=== PATIENT | male | born 1945 | race Caucasian/White ===

== ENCOUNTER → 2017-04-15 | Outpatient (CLI) | payer OTHER ==
[~2017-04-15] MED LIST: IOPAMIDOL (ISOVUE-300) 100 ML BTL ONE
== END ==
LOC: FIMAGING 08:44
PROVIDERS: ATTEND Specialist
DX: N32.9 Bladder disorder, unspecified (principal); R59.0 Localized enlarged lymph nodes; K80.20 Calculus of gallbladder without cholecystitis without obstruction
CPT/HCPCS: 74178; Q9967

== ENCOUNTER 2017-05-07 17:14 | Inpatient (IN) | payer OTHER ==
--- NOTE | 2017-05-07 17:19 | EDPHY ---
H & P Time Seen by Provider: 05/07/17 17:18 HPI/ROS: CHIEF COMPLAINT: Upper chest pain, questionable indigestion HISTORY OF PRESENT ILLNESS: The patient presents to the emergency department at the recommendation of his distribution operation supervisor. At around 1:30 a.m. this afternoon the patient developed some tightness across his upper chest. He was uncertain whether he was having indigestion. The patient reportedly used a home blood pressure monitor and reported that he had a tachycardia with a heart rate of 144 and elevated blood pressure. He checked it several times prior to contacting his distribution operation supervisor who recommended that he come to the ER for further evaluation. The patient's upper chest discomfort his current resolved. He denies any pleuritic chest pain, abdominal pain, nausea or vomiting. The patient does have a history of coronary artery disease and remote history of myocardial infarction. He reports his last stress test was approximately 3-4 years ago by his recollection. The patient's primary distribution operation supervisor is Dr. Alvarez Gamino. The patient's primary care provider is Dr. Js Rucker REVIEW OF SYSTEMS: A comprehensive 10 point review of systems is otherwise negative aside from elements mentioned in the history of present illness. Source: Patient Exam Limitations: No limitations - Personal History Tetanus Vaccine Date: 2010 - Medical/Surgical History Hx Asthma: No Hx Chronic Respiratory Disease: No Hx Diabetes: Yes Hx Cardiac Disease: Yes Hx Renal Disease: No Hx Cirrhosis: No Hx Alcoholism: No Hx HIV/AIDS: No Hx Splenectomy or Spleen Trauma: No Other PMH: josr knee replacement, diabetes,HTN, hypothyroid, gout, hyperlipidemia , [place] (2000) - Social History Smoking Status: Former smoker - Physical Exam Exam: General Appearance: Alert, no distress Eyes: Pupils equal and round no pallor or injection ENT, Mouth: Mucous membranes moist Respiratory: There are no retractions, lungs are clear to auscultation Cardiovascular: Regular rate and rhythm Gastrointestinal: Abdomen is soft and nontender, no masses, bowel sounds normal Neurological: A&O, normal motor function, normal sensory exam, normal cranial nerves Skin: Warm and dry, no rashes Musculoskeletal: Neck is supple nontender Extremities: symmetrical, full range of motion Constitutional: Initial Vital Signs Temperature (C) 36.5 C 05/07/17 17:16 Heart Rate 95 05/07/17 17:16 Respiratory Rate 16 05/07/17 17:16 Blood Pressure 156/87 H 05/07/17 17:16 O2 Sat (%) 97 05/07/17 17:16 O2 Delivery Mode Room Air Allergies/Adverse Reactions: No Known Allergies Allergy (Verified 04/26/17 14:26) Home Medications: Medication Instructions Recorded Aspirin EC [Aspirin EC 81 mg (OTC)] 03/30/13 Hydrochlorothiazide 03/30/13 [Hydrochlorothiazide 25 MG (RX)] Lisinopril [Zestril 40 mg (*)] 03/30/13 amLODIPine BESYLATE [Norvasc 5 mg 03/30/13 (RX)] Atorvastatin Calcium [Lipitor 40 09/25/13 mg (RX)] Cholecalciferol Vit D3 [Vitamin D3 09/25/13 (OTC)] Levothyroxine [Synthroid 50 mcg 09/25/13 (RX)] Metoprolol Succinate Xr [Toprol Xl 09/25/13 100 mg (RX)] metFORMIN HCL [Glucophage] 09/25/13 Mitigare 04/26/17 ONGLYZA 04/26/17 ULORIC 04/26/17 Medical Decision Making - Diagnostics EKG Interpretation: EKG: Complete interpretation has been separately recorded in the [email or web address] archive. Summary impression: Sinus rhythm, slight left axis deviation, no ST segment elevation or depression ED Course/Re-evaluation: The patient's to the ED after an episode of resolved upper chest pain. The patient's EKG demonstrates no evidence of ST segment elevation or depression. The patient's initial troponin was elevated at 0.083. The patient did have a slightly elevated lipase. He has no abdominal tenderness currently. I did speak with the patient's primary care provider and distribution operation supervisor who recommends admission to the hospital for further workup and evaluation. The patient will be started on Lovenox and given 1 inch of nitropaste q.6 hours per the recommendation of Dr. Lyman. Consultation is made with Dr. foreman from the hospitalist service who will admit the patient. Differential Diagnosis: Differential diagnosis considered includes myocardial infarction, acute coronary syndrome, costochondritis, esophageal spasm, pancreatitis, cholecystitis - Data Points Laboratory Results: Laboratory Results 05/07/17 17:30 05/07/17 17:30 05/07/17 05/07/17 05/07/17 17:30 17:30 17:30 WBC 7.69 10^3/uL 10^3/uL (3.80-9.50) RBC 5.67 10^6/uL 10^6/uL (4.40-6.38) Hgb 18.1 g/dL H g/dL (13.7-17.5) Hct 50.9 % % (40.0-51.0) MCV 89.8 fL fL (81.5-99.8) MCH 31.9 pg pg (27.9-34.1) MCHC 35.6 g/dL g/dL (32.4-36.7) RDW 13.1 % % (11.5-15.2) Plt Count 132 10^3/uL L 10^3/uL (150-400) MPV 12.3 fL H fL (8.7-11.7) Neut % (Auto) 62.7 % % (39.3-74.2) Lymph % (Auto) 24.6 % % (15.0-45.0) [place] % (Auto) 8.6 % % (4.5-13.0) Eos % (Auto) 2.5 % % (0.6-7.6) Baso % (Auto) 1.3 % % (0.3-1.7) Nucleat RBC Rel Count 0.0 % % (0.0-0.2) Absolute Neuts (auto) 4.83 10^3/uL 10^3/uL (1.70-6.50) Absolute Lymphs (auto) 1.89 10^3/uL 10^3/uL (1.00-3.00) Absolute Monos (auto) 0.66 10^3/uL 10^3/uL (0.30-0.80) Absolute Eos (auto) 0.19 10^3/uL 10^3/uL (0.03-0.40) Absolute Basos (auto) 0.10 10^3/uL 10^3/uL (0.02-0.10) Absolute Nucleated RBC 0.00 10^3/uL 10^3/uL (0-0.01) Immature Gran % 0.3 % % (0.0-1.1) Immature Gran # 0.02 10^3/uL 10^3/uL (0.00-0.10) PT 14.5 SEC SEC (12.0-15.0) INR 1.14 (0.83-1.16) APTT 25.3 SEC SEC (23.0-38.0) Sodium 142 mEq/L mEq/L (134-144) Potassium 3.3 mEq/L L mEq/L (3.5-5.2) Chloride 99 mEq/L mEq/L (97-110) Carbon Dioxide 26 mEq/l mEq/l (22-31) Anion Gap 17 mEq/L H mEq/L (8-16) BUN 23 mg/dL mg/dL (7-23) Creatinine 1.2 mg/dL mg/dL (0.7-1.3) Estimated GFR 59 Glucose 210 mg/dL H mg/dL (70-100) Calcium 10.1 mg/dL mg/dL (8.5-10.4) Total Bilirubin 1.2 mg/dL mg/dL (0.1-1.4) Conjugated Bilirubin 0.2 mg/dL mg/dL (0.0-0.5) Unconjugated Bilirubin 1.0 mg/dL mg/dL (0.0-1.1) AST 54 IU/L IU/L (17-59) ALT 79 IU/L H IU/L (21-72) Alkaline Phosphatase 93 IU/L IU/L (38-126) Troponin I 0.083 ng/mL H ng/mL (0.000-0.034) Total Protein 7.8 g/dL g/dL (6.3-8.2) Albumin 5.0 g/dL g/dL (3.5-5.0) Lipase 465 IU/L H IU/L (23-300) Departure - Departure Disposition: [facility] Inpatient Acute Clinical Impression: Chest pain Condition: Good Referrals: Waylon Rucker MD [Primary Care Provider] - As per Instructions
--- NOTE | 2017-05-07 17:19 | EDPHY ---
H & P Time Seen by Provider: 05/07/17 17:18 HPI/ROS: CHIEF COMPLAINT: Upper chest pain, questionable indigestion HISTORY OF PRESENT ILLNESS: The patient presents to the emergency department at the recommendation of his fountain attendant. At around 1:30 a.m. this afternoon the patient developed some tightness across his upper chest. He was uncertain whether he was having indigestion. The patient reportedly used a home blood pressure monitor and reported that he had a tachycardia with a heart rate of 144 and elevated blood pressure. He checked it several times prior to contacting his fountain attendant who recommended that he come to the ER for further evaluation. The patient's upper chest discomfort his current resolved. He denies any pleuritic chest pain, abdominal pain, nausea or vomiting. The patient does have a history of coronary artery disease and remote history of myocardial infarction. He reports his last stress test was approximately 3-4 years ago by his recollection. The patient's primary fountain attendant is Dr. Alvarez Gamino. The patient's primary care provider is Dr. Js Rucker REVIEW OF SYSTEMS: A comprehensive 10 point review of systems is otherwise negative aside from elements mentioned in the history of present illness. Source: Patient Exam Limitations: No limitations - Personal History Tetanus Vaccine Date: 2010 - Medical/Surgical History Hx Asthma: No Hx Chronic Respiratory Disease: No Hx Diabetes: Yes Hx Cardiac Disease: Yes Hx Renal Disease: No Hx Cirrhosis: No Hx Alcoholism: No Hx HIV/AIDS: No Hx Splenectomy or Spleen Trauma: No Other PMH: josr knee replacement, diabetes,HTN, hypothyroid, gout, hyperlipidemia , [place] (2000) - Social History Smoking Status: Former smoker - Physical Exam Exam: General Appearance: Alert, no distress Eyes: Pupils equal and round no pallor or injection ENT, Mouth: Mucous membranes moist Respiratory: There are no retractions, lungs are clear to auscultation Cardiovascular: Regular rate and rhythm Gastrointestinal: Abdomen is soft and nontender, no masses, bowel sounds normal Neurological: A&O, normal motor function, normal sensory exam, normal cranial nerves Skin: Warm and dry, no rashes Musculoskeletal: Neck is supple nontender Extremities: symmetrical, full range of motion Constitutional: Initial Vital Signs Temperature (C) 36.5 C 05/07/17 17:16 Heart Rate 95 05/07/17 17:16 Respiratory Rate 16 05/07/17 17:16 Blood Pressure 156/87 H 05/07/17 17:16 O2 Sat (%) 97 05/07/17 17:16 O2 Delivery Mode Room Air Allergies/Adverse Reactions: No Known Allergies Allergy (Verified 04/26/17 14:26) Home Medications: Medication Instructions Recorded Aspirin EC [Aspirin EC 81 mg (OTC)] 03/30/13 Hydrochlorothiazide 03/30/13 [Hydrochlorothiazide 25 MG (RX)] Lisinopril [Zestril 40 mg (*)] 03/30/13 amLODIPine BESYLATE [Norvasc 5 mg 03/30/13 (RX)] Atorvastatin Calcium [Lipitor 40 09/25/13 mg (RX)] Cholecalciferol Vit D3 [Vitamin D3 09/25/13 (OTC)] Levothyroxine [Synthroid 50 mcg 09/25/13 (RX)] Metoprolol Succinate Xr [Toprol Xl 09/25/13 100 mg (RX)] metFORMIN HCL [Glucophage] 09/25/13 Mitigare 04/26/17 ONGLYZA 04/26/17 ULORIC 04/26/17 Medical Decision Making - Diagnostics EKG Interpretation: EKG: Complete interpretation has been separately recorded in the [email or web address] archive. Summary impression: Sinus rhythm, slight left axis deviation, no ST segment elevation or depression ED Course/Re-evaluation: The patient's to the ED after an episode of resolved upper chest pain. The patient's EKG demonstrates no evidence of ST segment elevation or depression. The patient's initial troponin was elevated at 0.083. The patient did have a slightly elevated lipase. He has no abdominal tenderness currently. I did speak with the patient's primary care provider and fountain attendant who recommends admission to the hospital for further workup and evaluation. The patient will be started on Lovenox and given 1 inch of nitropaste q.6 hours per the recommendation of Dr. Lyman. Consultation is made with Dr. foreman from the hospitalist service who will admit the patient. Differential Diagnosis: Differential diagnosis considered includes myocardial infarction, acute coronary syndrome, costochondritis, esophageal spasm, pancreatitis, cholecystitis - Data Points Laboratory Results: Laboratory Results 05/07/17 17:30 05/07/17 17:30 05/07/17 05/07/17 05/07/17 17:30 17:30 17:30 WBC 7.69 10^3/uL 10^3/uL (3.80-9.50) RBC 5.67 10^6/uL 10^6/uL (4.40-6.38) Hgb 18.1 g/dL H g/dL (13.7-17.5) Hct 50.9 % % (40.0-51.0) MCV 89.8 fL fL (81.5-99.8) MCH 31.9 pg pg (27.9-34.1) MCHC 35.6 g/dL g/dL (32.4-36.7) RDW 13.1 % % (11.5-15.2) Plt Count 132 10^3/uL L 10^3/uL (150-400) MPV 12.3 fL H fL (8.7-11.7) Neut % (Auto) 62.7 % % (39.3-74.2) Lymph % (Auto) 24.6 % % (15.0-45.0) [place] % (Auto) 8.6 % % (4.5-13.0) Eos % (Auto) 2.5 % % (0.6-7.6) Baso % (Auto) 1.3 % % (0.3-1.7) Nucleat RBC Rel Count 0.0 % % (0.0-0.2) Absolute Neuts (auto) 4.83 10^3/uL 10^3/uL (1.70-6.50) Absolute Lymphs (auto) 1.89 10^3/uL 10^3/uL (1.00-3.00) Absolute Monos (auto) 0.66 10^3/uL 10^3/uL (0.30-0.80) Absolute Eos (auto) 0.19 10^3/uL 10^3/uL (0.03-0.40) Absolute Basos (auto) 0.10 10^3/uL 10^3/uL (0.02-0.10) Absolute Nucleated RBC 0.00 10^3/uL 10^3/uL (0-0.01) Immature Gran % 0.3 % % (0.0-1.1) Immature Gran # 0.02 10^3/uL 10^3/uL (0.00-0.10) PT 14.5 SEC SEC (12.0-15.0) INR 1.14 (0.83-1.16) APTT 25.3 SEC SEC (23.0-38.0) Sodium 142 mEq/L mEq/L (134-144) Potassium 3.3 mEq/L L mEq/L (3.5-5.2) Chloride 99 mEq/L mEq/L (97-110) Carbon Dioxide 26 mEq/l mEq/l (22-31) Anion Gap 17 mEq/L H mEq/L (8-16) BUN 23 mg/dL mg/dL (7-23) Creatinine 1.2 mg/dL mg/dL (0.7-1.3) Estimated GFR 59 Glucose 210 mg/dL H mg/dL (70-100) Calcium 10.1 mg/dL mg/dL (8.5-10.4) Total Bilirubin 1.2 mg/dL mg/dL (0.1-1.4) Conjugated Bilirubin 0.2 mg/dL mg/dL (0.0-0.5) Unconjugated Bilirubin 1.0 mg/dL mg/dL (0.0-1.1) AST 54 IU/L IU/L (17-59) ALT 79 IU/L H IU/L (21-72) Alkaline Phosphatase 93 IU/L IU/L (38-126) Troponin I 0.083 ng/mL H ng/mL (0.000-0.034) Total Protein 7.8 g/dL g/dL (6.3-8.2) Albumin 5.0 g/dL g/dL (3.5-5.0) Lipase 465 IU/L H IU/L (23-300) Departure - Departure Disposition: [facility] Inpatient Acute Clinical Impression: Chest pain Condition: Good Referrals: Waylon Rucker MD [Primary Care Provider] - As per Instructions
--- NOTE | 2017-05-07 17:19 | EDPHY ---
H & P Time Seen by Provider: 05/07/17 17:18 HPI/ROS: CHIEF COMPLAINT: Upper chest pain, questionable indigestion HISTORY OF PRESENT ILLNESS: The patient presents to the emergency department at the recommendation of his bessemer bottom maker. At around 1:30 a.m. this afternoon the patient developed some tightness across his upper chest. He was uncertain whether he was having indigestion. The patient reportedly used a home blood pressure monitor and reported that he had a tachycardia with a heart rate of 144 and elevated blood pressure. He checked it several times prior to contacting his bessemer bottom maker who recommended that he come to the ER for further evaluation. The patient's upper chest discomfort his current resolved. He denies any pleuritic chest pain, abdominal pain, nausea or vomiting. The patient does have a history of coronary artery disease and remote history of myocardial infarction. He reports his last stress test was approximately 3-4 years ago by his recollection. The patient's primary bessemer bottom maker is Dr. Alvarez Gamino. The patient's primary care provider is Dr. Js Rucker REVIEW OF SYSTEMS: A comprehensive 10 point review of systems is otherwise negative aside from elements mentioned in the history of present illness. Source: Patient Exam Limitations: No limitations - Personal History Tetanus Vaccine Date: 2010 - Medical/Surgical History Hx Asthma: No Hx Chronic Respiratory Disease: No Hx Diabetes: Yes Hx Cardiac Disease: Yes Hx Renal Disease: No Hx Cirrhosis: No Hx Alcoholism: No Hx HIV/AIDS: No Hx Splenectomy or Spleen Trauma: No Other PMH: josr knee replacement, diabetes,HTN, hypothyroid, gout, hyperlipidemia , [place] (2000) - Social History Smoking Status: Former smoker - Physical Exam Exam: General Appearance: Alert, no distress Eyes: Pupils equal and round no pallor or injection ENT, Mouth: Mucous membranes moist Respiratory: There are no retractions, lungs are clear to auscultation Cardiovascular: Regular rate and rhythm Gastrointestinal: Abdomen is soft and nontender, no masses, bowel sounds normal Neurological: A&O, normal motor function, normal sensory exam, normal cranial nerves Skin: Warm and dry, no rashes Musculoskeletal: Neck is supple nontender Extremities: symmetrical, full range of motion Constitutional: Initial Vital Signs Temperature (C) 36.5 C 05/07/17 17:16 Heart Rate 95 05/07/17 17:16 Respiratory Rate 16 05/07/17 17:16 Blood Pressure 156/87 H 05/07/17 17:16 O2 Sat (%) 97 05/07/17 17:16 O2 Delivery Mode Room Air Allergies/Adverse Reactions: No Known Allergies Allergy (Verified 04/26/17 14:26) Home Medications: Medication Instructions Recorded Aspirin EC [Aspirin EC 81 mg (OTC)] 03/30/13 Hydrochlorothiazide 03/30/13 [Hydrochlorothiazide 25 MG (RX)] Lisinopril [Zestril 40 mg (*)] 03/30/13 amLODIPine BESYLATE [Norvasc 5 mg 03/30/13 (RX)] Atorvastatin Calcium [Lipitor 40 09/25/13 mg (RX)] Cholecalciferol Vit D3 [Vitamin D3 09/25/13 (OTC)] Levothyroxine [Synthroid 50 mcg 09/25/13 (RX)] Metoprolol Succinate Xr [Toprol Xl 09/25/13 100 mg (RX)] metFORMIN HCL [Glucophage] 09/25/13 Mitigare 04/26/17 ONGLYZA 04/26/17 ULORIC 04/26/17 Medical Decision Making - Diagnostics EKG Interpretation: EKG: Complete interpretation has been separately recorded in the [email or web address] archive. Summary impression: Sinus rhythm, slight left axis deviation, no ST segment elevation or depression ED Course/Re-evaluation: The patient's to the ED after an episode of resolved upper chest pain. The patient's EKG demonstrates no evidence of ST segment elevation or depression. The patient's initial troponin was elevated at 0.083. The patient did have a slightly elevated lipase. He has no abdominal tenderness currently. I did speak with the patient's primary care provider and bessemer bottom maker who recommends admission to the hospital for further workup and evaluation. The patient will be started on Lovenox and given 1 inch of nitropaste q.6 hours per the recommendation of Dr. Lyman. Consultation is made with Dr. foreman from the hospitalist service who will admit the patient. Differential Diagnosis: Differential diagnosis considered includes myocardial infarction, acute coronary syndrome, costochondritis, esophageal spasm, pancreatitis, cholecystitis - Data Points Laboratory Results: Laboratory Results 05/07/17 17:30 05/07/17 17:30 05/07/17 05/07/17 05/07/17 17:30 17:30 17:30 WBC 7.69 10^3/uL 10^3/uL (3.80-9.50) RBC 5.67 10^6/uL 10^6/uL (4.40-6.38) Hgb 18.1 g/dL H g/dL (13.7-17.5) Hct 50.9 % % (40.0-51.0) MCV 89.8 fL fL (81.5-99.8) MCH 31.9 pg pg (27.9-34.1) MCHC 35.6 g/dL g/dL (32.4-36.7) RDW 13.1 % % (11.5-15.2) Plt Count 132 10^3/uL L 10^3/uL (150-400) MPV 12.3 fL H fL (8.7-11.7) Neut % (Auto) 62.7 % % (39.3-74.2) Lymph % (Auto) 24.6 % % (15.0-45.0) [place] % (Auto) 8.6 % % (4.5-13.0) Eos % (Auto) 2.5 % % (0.6-7.6) Baso % (Auto) 1.3 % % (0.3-1.7) Nucleat RBC Rel Count 0.0 % % (0.0-0.2) Absolute Neuts (auto) 4.83 10^3/uL 10^3/uL (1.70-6.50) Absolute Lymphs (auto) 1.89 10^3/uL 10^3/uL (1.00-3.00) Absolute Monos (auto) 0.66 10^3/uL 10^3/uL (0.30-0.80) Absolute Eos (auto) 0.19 10^3/uL 10^3/uL (0.03-0.40) Absolute Basos (auto) 0.10 10^3/uL 10^3/uL (0.02-0.10) Absolute Nucleated RBC 0.00 10^3/uL 10^3/uL (0-0.01) Immature Gran % 0.3 % % (0.0-1.1) Immature Gran # 0.02 10^3/uL 10^3/uL (0.00-0.10) PT 14.5 SEC SEC (12.0-15.0) INR 1.14 (0.83-1.16) APTT 25.3 SEC SEC (23.0-38.0) Sodium 142 mEq/L mEq/L (134-144) Potassium 3.3 mEq/L L mEq/L (3.5-5.2) Chloride 99 mEq/L mEq/L (97-110) Carbon Dioxide 26 mEq/l mEq/l (22-31) Anion Gap 17 mEq/L H mEq/L (8-16) BUN 23 mg/dL mg/dL (7-23) Creatinine 1.2 mg/dL mg/dL (0.7-1.3) Estimated GFR 59 Glucose 210 mg/dL H mg/dL (70-100) Calcium 10.1 mg/dL mg/dL (8.5-10.4) Total Bilirubin 1.2 mg/dL mg/dL (0.1-1.4) Conjugated Bilirubin 0.2 mg/dL mg/dL (0.0-0.5) Unconjugated Bilirubin 1.0 mg/dL mg/dL (0.0-1.1) AST 54 IU/L IU/L (17-59) ALT 79 IU/L H IU/L (21-72) Alkaline Phosphatase 93 IU/L IU/L (38-126) Troponin I 0.083 ng/mL H ng/mL (0.000-0.034) Total Protein 7.8 g/dL g/dL (6.3-8.2) Albumin 5.0 g/dL g/dL (3.5-5.0) Lipase 465 IU/L H IU/L (23-300) Departure - Departure Disposition: [facility] Inpatient Acute Clinical Impression: Chest pain Condition: Good Referrals: Waylon Rucker MD [Primary Care Provider] - As per Instructions
--- NOTE | 2017-05-07 17:26 | CPEKG ---
Heart Rate: 93 RR Interval: 645 P-R Interval: 184 QRSD Interval: 98 QT Interval: 368 QTC Interval: 458 P [place]: 60 QRS [place]: -29 T Wave [place]: 34 EKG Severity - BORDERLINE ECG - EKG Impression: SINUS RHYTHM Electronically Signed By: Sim Willoughby 07-May-2017 17:36:38
[2017-05-07 17:45] LABS: PLATELET COUNT 132 10^3/uL (150-400)
[2017-05-07 17:56] LABS: INR 1.14 (0.83-1.16); PROTIME(PATIENT) 14.5 SEC (12.0-15.0)
[2017-05-07] MEDS ORDERED: ENOXAPARIN 80 MG/0.8 ML SYR SC ONE (18:47)
[2017-05-07] MEDS ORDERED: ONDANSETRON DISINTEGRATING 4 MG TAB PO PRN (19:28)
[2017-05-07] MEDS ORDERED: ONDANSETRON 4 MG/2 ML VIAL IVP PRN (19:28)
[2017-05-07] MEDS ORDERED: ACETAMINOPHEN 325 MG TAB PO PRN (19:28)
[2017-05-07] MEDS ORDERED: ENOXAPARIN 40 MG/0.4 ML SYR SC SCH (21:00)
--- NOTE | 2017-05-07 21:00 | PDGENHP ---
History and Physical - Chief Complaint Acute chest pain - History of Present Illness PCP: Dr. Rucker Data Warehouse Architect: Dr. Gamino HPI: 72 yo M p/w acute chest characterized as a tightness located in his upper chest, with onset of symptoms around 1:30 p.m., occurring at rest, with duration approx 2 hours. It began after he ate a couple [employer] hamburgers quickly. It was alleviated w/o intervention. He took all of his home medications on the morning of presentation. He checked his vital signs during his symptoms, and his HR was 144, SBP 170s. He does not have a regular exercise routine, but he does ambulate quite a bit on a daily basis, and this does not provoke chest pain. He has noted no recent reduction in exercise tolerance or ambulatory ability. He recently saw Dr. Gamino in the office for a pre-op eval , with bladder surgery scheduled in 1 week w/ Dr. Aden. History Information - Allergies/Home Medication List Allergies/Adverse Reactions: No Known Allergies Allergy (Verified 04/26/17 14:26) Home Medications: Aspirin EC [Aspirin EC 81 mg (OTC)] 03/30/13 [Last Taken 09/30/13] Hydrochlorothiazide [Hydrochlorothiazide 25 MG (RX)] 03/30/13 [Last Taken 10/05] Lisinopril [Zestril 40 mg (*)] 03/30/13 [Last Taken 09/25/13 05:00] amLODIPine BESYLATE [Norvasc 5 mg (RX)] 03/30/13 [Last Taken 10/05/13] Atorvastatin Calcium [Lipitor 40 mg (RX)] 09/25/13 [Last Taken 10/04/13] Cholecalciferol Vit D3 [Vitamin D3 (OTC)] 09/25/13 [Last Taken 10/04/13] Levothyroxine [Synthroid 50 mcg (RX)] 09/25/13 [Last Taken 10/05/13] Metoprolol Succinate Xr [Toprol Xl 100 mg (RX)] 09/25/13 [Last Taken 10/05/13 08:00] metFORMIN HCL [Glucophage] 09/25/13 [Last Taken 10/03/13] Mitigare 04/26/17 [Last Taken Unknown] ONGLYZA 04/26/17 [Last Taken Unknown] ULORIC 04/26/17 [Last Taken Unknown] I have personally reviewed and updated: family history, medical history, social history, surgical history - Past Medical History coronary artery disease (w/ previous cardiac stents 2000 and 2008, off of plavix for approx 2 years), diabetes type 2, hypertension Additional medical history: Hypothyroidism. Gout. 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 Review of Systems Review of Systems: ROS: 10pt was reviewed & negative except for what was stated in HPI & below Cardiac: Reports: chest pain Physical Exam Physical Exam: Temp Pulse Resp BP Pulse Ox 36.4 C 81 16 138/84 H 93 05/07/17 19:46 05/07/17 19:46 05/07/17 19:46 05/07/17 19:46 05/07/17 19:46 Constitutional: no apparent distress, appears nourished, not in pain Eyes: PERRL, anicteric sclera, EOMI Ears, Nose, Mouth, Throat: moist mucous membranes, hearing normal, ears appear normal, no oral mucosal ulcers Cardiovascular: regular rate and rhythym, no murmur, rub, or gallop, No edema Respiratory: no respiratory distress, no rales or rhonchi, clear to auscultation Gastrointestinal: normoactive bowel sounds, soft, non-tender abdomen, no palpable masses Skin: warm, other (no vesicular lesion on anterior chest), No rash Neurologic: AAOx3, No facial droop Psychiatric: interacting appropriately, not anxious, not encephalopathic, thought process linear Lab Data & Imaging Review 05/07/17 17:30 05/07/17 17:30 WBC 7.69 10^3/uL (3.80-9.50) 05/07/17 17:30 RBC 5.67 10^6/uL (4.40-6.38) 05/07/17 17:30 Hgb 18.1 g/dL (13.7-17.5) H 05/07/17 17:30 Hct 50.9 % (40.0-51.0) 05/07/17 17:30 MCV 89.8 fL (81.5-99.8) 05/07/17 17:30 MCH 31.9 pg (27.9-34.1) 05/07/17 17:30 MCHC 35.6 g/dL (32.4-36.7) 05/07/17 17:30 RDW 13.1 % (11.5-15.2) 05/07/17 17:30 Plt Count 132 10^3/uL (150-400) L 05/07/17 17:30 MPV 12.3 fL (8.7-11.7) H 05/07/17 17: Neut % (Auto) 62.7 % (39.3-74.2) 05/07/17 17: Lymph % (Auto) 24.6 % (15.0-45.0) 05/07/17 17: Cedar % (Auto) 8.6 % (4.5-13.0) 05/07/17 17:30 Eos % (Auto) 2.5 % (0.6-7.6) 05/07/17 17:30 Baso % (Auto) 1.3 % (0.3-1.7) 05/07/17 17: Nucleat RBC Rel Count 0.0 % (0.0-0.2) 05/07/17 17:30 Absolute Neuts (auto) 4.83 10^3/uL (1.70-6.50) 05/07/17 17:30 Absolute Lymphs (auto) 1.89 10^3/uL (1.00-3.00) 05/07/17 17:30 Absolute Monos (auto) 0.66 10^3/uL (0.30-0.80) 05/07/17 17:30 Absolute Eos (auto) 0.19 10^3/uL (0.03-0.40) 05/07/17 17:30 Absolute Basos (auto) 0.10 10^3/uL (0.02-0.10) 05/07/17 17:30 Absolute Nucleated RBC 0.00 10^3/uL (0-0.01) 05/07/17 17:30 Immature Gran % 0.3 % (0.0-1.1) 05/07/17 17:30 Immature Gran # 0.02 10^3/uL (0.00-0.10) 05/07/17 17:30 PT 14.5 SEC (12.0-15.0) 05/07/17 17:30 INR 1.14 (0.83-1.16) 05/07/17 17:30 APTT 25.3 SEC (23.0-38.0) 05/07/17 17:30 D-Dimer 0.65 ug/mLFEU (0.00-0.50) H 05/07/17 17:30 Sodium 142 mEq/L (134-144) 05/07/17 17:30 Potassium 3.3 mEq/L (3.5-5.2) L 05/07/17 17:30 Chloride 99 mEq/L (97-110) 05/07/17 17:30 Carbon Dioxide 26 mEq/l (22-31) 05/07/17 17:30 Anion Gap 17 mEq/L (8-16) H 05/07/17 17:30 BUN 23 mg/dL (7-23) 05/07/17 17:30 Creatinine 1.2 mg/dL (0.7-1.3) 05/07/17 17:30 Estimated GFR 59 05/07/17 17:30 Glucose 210 mg/dL (70-100) H 05/07/17 17:30 Calcium 10.1 mg/dL (8.5-10.4) 05/07/17 17:30 Total Bilirubin 1.2 mg/dL (0.1-1.4) 05/07/17 17:30 Conjugated Bilirubin 0.2 mg/dL (0.0-0.5) 05/07/17 17:30 Unconjugated Bilirubin 1.0 mg/dL (0.0-1.1) 05/07/17 17:30 AST 54 IU/L (17-59) 05/07/17 17:30 ALT 79 IU/L (21-72) H 05/07/17 17:30 Alkaline Phosphatase 93 IU/L (38-126) 05/07/17 17:30 Troponin I 0.083 ng/mL (0.000-0.034) H 05/07/17 17:30 Total Protein 7.8 g/dL (6.3-8.2) 05/07/17 17:30 Albumin 5.0 g/dL (3.5-5.0) 05/07/17 17:30 Lipase 465 IU/L (23-300) H 05/07/17 17:30 Visualized and Interpreted EKG results: Yes EKG Interpretation: Positive for: other (NSR, Q in III/aVF, < 1 mm BRADY V2) Assessment & Plan Assessment: 72 yo M p/w acute chest pain Plan: # Chest pain. Acute, new problem to this provider, further w/u indicated. Possible etiologies include ACS (given CAD hx) vs. tachyarrhythmia (given report of HR 144) vs. GERD (given PO intake immediately prior to onset) - initial trop 0.08, cycle enzymes o/n - monitor on tele - repeat EKG in AM to eval for dynamic changes - d/w Dr. Willoughby, he reports that Dr. Lyman will consult from cardiology, recommends treating for unstable angina w/ therapeutic lovenox 80 bid, nitro if symptoms recur, full dose ASA - patient reports that he will not be cath'd by anyone other than either Dr. Gamino or Dr. Peguero, and will keep patient NPO in case Dr. Peguero is available to cath in AM - if not, will defer the conversation of how/when to risk stratify to cardiology - ddimer neg for age-adjustment, no further PE eval indicated - no infxn symptoms, but if develops pulm symptoms, recommend reassessing and getting CXR - if all of the above unremarkable, would recommend PRN H2 david, possibly scheduled PPI, patient already takes tums PRN # CAD. Chronic, cont home Rx once reconciled, already took bblocker this AM # DM2. Chronic, cont home Rx # Bladder cancer. Reviewed outside records including CT from 04/15/17 demonstrating bladder mass - has outpt surgery w/ Dr. Aden in 1 week, recommend cardiac risk stratification before that time Diet. ADA PPx. High risk, on lovenox 80 bid Code. Full Dispo. ADD 05/08, pending further w/u as outlined above.
[2017-05-07] MEDS ORDERED: Saxagliptin Hcl [Onglyza] 5 MG PO SCH (21:45)
[2017-05-07] MEDS: LISINOPRIL 40 MG TAB PO SCH (22:25)
[2017-05-07] MEDS: COLCHICINE 0.6 MG CAP/TAB PO SCH (22:27)
[2017-05-07] MEDS: CHOLECALCIFEROL VIT D3 1,000 UNITS TAB PO SCH (22:27)
[2017-05-07] MEDS: ATORVASTATIN CALCIUM 20 MG TAB PO SCH (22:28)
[2017-05-07] MEDS ORDERED: D5W 1/2 NS W/ 20 KCl/L 1,000 ML IV SCH (23:55)
[2017-05-08 05:18] LABS: PLATELET COUNT 98 10^3/uL (150-400)
[2017-05-08] MEDS: LEVOTHYROXINE 50 MCG TAB PO SCH (06:03)
[2017-05-08] MEDS ORDERED: metFORMIN HCL 500 MG TAB PO SCH (08:00)
[2017-05-08] MEDS ORDERED: Febuxostat [Uloric] 40 MG PO SCH (09:00)
[2017-05-08] MEDS ORDERED: ENOXAPARIN 80 MG/0.8 ML SYR SC SCH (09:00)
--- NOTE | 2017-05-08 09:00 | CPEKG ---
Heart Rate: 69 RR Interval: 870 P-R Interval: 180 QRSD Interval: 98 QT Interval: 416 QTC Interval: 446 P [place]: 69 QRS [place]: -8 T Wave [place]: -33 EKG Severity - ABNORMAL ECG - EKG Impression: SINUS RHYTHM EKG Impression: PROBABLE LEFT ATRIAL ABNORMALITY EKG Impression: BORDERLINE T ABNORMALITIES, INFERIOR LEADS EKG Impression: NONSPECIFIC ST_T WAVE ABNORMAILITES Electronically Signed By: Wally Cadena 08-May-2017 11:07:21
[2017-05-08] MEDS ORDERED: fentaNYL 100 MCG/2 ML INJ ONE (09:15)
[2017-05-08] MEDS ORDERED: LIDOCAINE 1% 300 MG/30 ML SDV ONE (09:15)
[2017-05-08] MEDS ORDERED: MIDAZOLAM 2 MG/2 ML VIAL ONE (09:16)
[2017-05-08] MEDS ORDERED: IOPAMIDOL (ISOVUE-370) 150 ML BTL IV ONE (09:16)
--- NOTE | 2017-05-08 09:39 | PDHPUP ---
History & Physical Update H&P update statement: This history and physical update is based on an assessment of the patient which was completed after admission or registration (within 24 hours), but prior to the surgery/procedure. H&P update: H&P reviewed & patient examined, no change in patient's condition since H&P completed
--- NOTE | 2017-05-08 09:39 | PDPROPOC ---
Sedation Plan of Care Sedation Plan of Care: vital signs stable, mental status noted, patient educated of risks, benefits, alternatives, patient can tolerate sedation ASA Classification: ASA 2 Planned drugs: fentanyl, midazolam Mallampati Score: Class 2 Mallampati Reference Image: Patient passed 3-3-2 rule?: Yes
[2017-05-08] MEDS ORDERED: BIVALIRUDIN 250 MG/5 ML VIAL IV ONE ×2 (10:21→10:30)
[2017-05-08] MEDS ORDERED: ADENOSINE 90 MG/30 ML VIAL IV ONE ×2 (10:30)
[2017-05-08] MEDS ORDERED: LABETALOL HCL 5 MG/ML 20 ML MDV ONE (11:15)
[2017-05-08] MEDS ORDERED: CLOPIDOGREL BISULFATE 75 MG TAB ONE (11:22)
[2017-05-08] MEDS ORDERED: CLOPIDOGREL BISULFATE 75 MG TAB PO ONE (11:44)
[2017-05-08] MEDS ORDERED: TEMAZEPAM 15 MG CAP PO PRN (11:44)
[2017-05-08] MEDS ORDERED: NITROGLYCERIN 0.4 MG BTL SL PRN (11:44)
[2017-05-08] MEDS ORDERED: ATROPINE SULFATE 1 MG/10 ML SYR IVP PRN (11:44)
--- NOTE | 2017-05-08 11:59 | CPIP ---
[f rep st] INVASIVE CARDIAC PROCEDURE DATE OF PROCEDURE: 05/08/2017 PROCEDURE: 1. Coronary angiography. 2. Left ventriculography. 3. Fractional flow reserve of right coronary artery. 4. Stenting of right coronary artery with Synergy drug-eluting stent. INDICATION: Acute coronary syndrome. ACCESS: Patient was prepped and draped in the sterile fashion. 1% lidocaine was used to anesthetize the right inguinal region. A 6-Bur[place]ian introducer sheath was placed selectively in the right common femoral artery via modified Seldinger technique. CORONARY ANGIOGRAPHY: A 6-[place] JL4 was advanced to the left main coronary artery. The 6-[place]ian JL 4 did not engage the left main coronary artery well and was exchanged for a 6-[place]ian JL4.5 catheter. This engaged the left main coronary artery well and images were obtained. The left main coronary ar tamera trifurcated into an LAD, ramus, and circumflex coronary arteries. The left main coronary artery appeared normal. The left anterior descending coronary artery had mild diffuse disease throughout. In the midvessel, previously placed stent could be seen. The previously placed stent is widely maldonado nt with no evidence of significant in-stent restenosis. In the mid to distal vessel, there is a sing le discrete 30% stenosis present. The left anterior descending coronary artery gave rise to a promin ent diagonal branch. The prominent diagonal branch had a proximal 50% stenosis present. The circumf buddy coronary artery is a moderate to large-sized vessel. The circumflex coronary artery is nondomina nt. Circumflex coronary artery had mild diffuse disease throughout. There was no stenosis greater t vasques 10%. The first OM artery was previously stented in the proximal segment. The previously placed stent was 100% occluded. The distal vessel is being filled by collaterals from the left anterior gm cending coronary artery. This stent occlusion was noted in the 2008 films. The 6-[place]ian JR4 was adv anced to the right coronary artery and images obtained. The right coronary artery was diffusely dise ased in the mid vessel with stenosis approaching 80% to 85% in severity. LEFT VENTRICULOGRAPHY: A 6-Burundian pigtail catheter was advanced in the left ventricle and images obt ained. Left ventricle is normal size and had normal systolic function, estimated ejection fraction o f 65% to 70%. FFR of the right coronary artery, a 6-[place]ian JR4 was advanced to the right coronary ar tamera and images obtained. Angiography confirmed the presence of high-grade disease involving the mid vessel. FFR wire was placed in the distal vessel and position verified by angiography. FFR was obt ained after IV adenosine infusion. The FFR was 0.61 indicating flow limitation. Percutaneous mena ry intervention of the right coronary artery, a Luge wire was placed in the distal vessel and positio n verified by angiography. The mid vessel was pre-dilated with a 2.5 x 20 Emerge balloon. Followup angiography demonstrated significant residual stenosis. A 2.5 x 28 synergy drug-eluting stent was th en placed in the mid vessel and deployed. Followup angiography demonstrated no significant residual stenosis and SATINDER-3 flow. The midportion of the stent was postdilated with a 3.0 x 12 Noncompliant B alloon. Followup angiography demonstrated SATINDER-3 flow. No residual stenosis. COMPLICATIONS: None. CONCLUSIONS: 1. Patent left anterior descending stent with no evidence of significant in-stent restenosis. 2. Occluded circumflex stent which was seen previously in 2007. 3. High-grade disease involving the mid right coronary artery, status post successful percutaneous c oronary intervention using a Synergy drug-eluting stent. /[id number]/MODL
--- NOTE | 2017-05-08 11:59 | CPIP ---
[f rep st] INVASIVE CARDIAC PROCEDURE DATE OF PROCEDURE: 05/08/2017 PROCEDURE: 1. Coronary angiography. 2. Left ventriculography. 3. Fractional flow reserve of right coronary artery. 4. Stenting of right coronary artery with Synergy drug-eluting stent. INDICATION: Acute coronary syndrome. ACCESS: Patient was prepped and draped in the sterile fashion. 1% lidocaine was used to anesthetize the right inguinal region. A 6-Nigerien introducer sheath was placed selectively in the right common femoral artery via modified Seldinger technique. CORONARY ANGIOGRAPHY: A 6-Nigerien JL4 was advanced to the left main coronary artery. The 6-Nigerien JL 4 did not engage the left main coronary artery well and was exchanged for a 6-Nigerien JL4.5 catheter. This engaged the left main coronary artery well and images were obtained. The left main coronary ar tamera trifurcated into an LAD, ramus, and circumflex coronary arteries. The left main coronary artery appeared normal. The left anterior descending coronary artery had mild diffuse disease throughout. In the midvessel, previously placed stent could be seen. The previously placed stent is widely maldonado nt with no evidence of significant in-stent restenosis. In the mid to distal vessel, there is a sing le discrete 30% stenosis present. The left anterior descending coronary artery gave rise to a promin ent diagonal branch. The prominent diagonal branch had a proximal 50% stenosis present. The circumf buddy coronary artery is a moderate to large-sized vessel. The circumflex coronary artery is nondomina nt. Circumflex coronary artery had mild diffuse disease throughout. There was no stenosis greater t vasques 10%. The first OM artery was previously stented in the proximal segment. The previously placed stent was 100% occluded. The distal vessel is being filled by collaterals from the left anterior gm cending coronary artery. This stent occlusion was noted in the 2008 films. The 6-Nigerien JR4 was adv anced to the right coronary artery and images obtained. The right coronary artery was diffusely dise ased in the mid vessel with stenosis approaching 80% to 85% in severity. LEFT VENTRICULOGRAPHY: A 6-Nigerien pigtail catheter was advanced in the left ventricle and images obt ained. Left ventricle is normal size and had normal systolic function, estimated ejection fraction o f 65% to 70%. FFR of the right coronary artery, a 6-Nigerien JR4 was advanced to the right coronary ar tamera and images obtained. Angiography confirmed the presence of high-grade disease involving the mid vessel. FFR wire was placed in the distal vessel and position verified by angiography. FFR was obt ained after IV adenosine infusion. The FFR was 0.61 indicating flow limitation. Percutaneous mena ry intervention of the right coronary artery, a Luge wire was placed in the distal vessel and positio n verified by angiography. The mid vessel was pre-dilated with a 2.5 x 20 Emerge balloon. Followup angiography demonstrated significant residual stenosis. A 2.5 x 28 synergy drug-eluting stent was th en placed in the mid vessel and deployed. Followup angiography demonstrated no significant residual stenosis and SATINDER-3 flow. The midportion of the stent was postdilated with a 3.0 x 12 Noncompliant B alloon. Followup angiography demonstrated SATINDER-3 flow. No residual stenosis. COMPLICATIONS: None. CONCLUSIONS: 1. Patent left anterior descending stent with no evidence of significant in-stent restenosis. 2. Occluded circumflex stent which was seen previously in 2007. 3. High-grade disease involving the mid right coronary artery, status post successful percutaneous c oronary intervention using a Synergy drug-eluting stent. /[id number]/MODL
--- NOTE | 2017-05-08 11:59 | CPIP ---
[f rep st] INVASIVE CARDIAC PROCEDURE DATE OF PROCEDURE: 05/08/2017 PROCEDURE: 1. Coronary angiography. 2. Left ventriculography. 3. Fractional flow reserve of right coronary artery. 4. Stenting of right coronary artery with Synergy drug-eluting stent. INDICATION: Acute coronary syndrome. ACCESS: Patient was prepped and draped in the sterile fashion. 1% lidocaine was used to anesthetize the right inguinal region. A 6-[place] introducer sheath was placed selectively in the right common femoral artery via modified Seldinger technique. CORONARY ANGIOGRAPHY: A 6-[place] JL4 was advanced to the left main coronary artery. The 6-[place] JL 4 did not engage the left main coronary artery well and was exchanged for a 6-[place] JL4.5 catheter. This engaged the left main coronary artery well and images were obtained. The left main coronary ar tamera trifurcated into an LAD, ramus, and circumflex coronary arteries. The left main coronary artery appeared normal. The left anterior descending coronary artery had mild diffuse disease throughout. In the midvessel, previously placed stent could be seen. The previously placed stent is widely maldonado nt with no evidence of significant in-stent restenosis. In the mid to distal vessel, there is a sing le discrete 30% stenosis present. The left anterior descending coronary artery gave rise to a promin ent diagonal branch. The prominent diagonal branch had a proximal 50% stenosis present. The circumf buddy coronary artery is a moderate to large-sized vessel. The circumflex coronary artery is nondomina nt. Circumflex coronary artery had mild diffuse disease throughout. There was no stenosis greater t vasques 10%. The first OM artery was previously stented in the proximal segment. The previously placed stent was 100% occluded. The distal vessel is being filled by collaterals from the left anterior gm cending coronary artery. This stent occlusion was noted in the 2008 films. The 6-[place] JR4 was adv anced to the right coronary artery and images obtained. The right coronary artery was diffusely dise ased in the mid vessel with stenosis approaching 80% to 85% in severity. LEFT VENTRICULOGRAPHY: A 6-[place] pigtail catheter was advanced in the left ventricle and images obt ained. Left ventricle is normal size and had normal systolic function, estimated ejection fraction o f 65% to 70%. FFR of the right coronary artery, a 6-[place] JR4 was advanced to the right coronary ar tamera and images obtained. Angiography confirmed the presence of high-grade disease involving the mid vessel. FFR wire was placed in the distal vessel and position verified by angiography. FFR was obt ained after IV adenosine infusion. The FFR was 0.61 indicating flow limitation. Percutaneous mena ry intervention of the right coronary artery, a Luge wire was placed in the distal vessel and positio n verified by angiography. The mid vessel was pre-dilated with a 2.5 x 20 Emerge balloon. Followup angiography demonstrated significant residual stenosis. A 2.5 x 28 synergy drug-eluting stent was th en placed in the mid vessel and deployed. Followup angiography demonstrated no significant residual stenosis and SATINDER-3 flow. The midportion of the stent was postdilated with a 3.0 x 12 Noncompliant B alloon. Followup angiography demonstrated SATINDER-3 flow. No residual stenosis. COMPLICATIONS: None. CONCLUSIONS: 1. Patent left anterior descending stent with no evidence of significant in-stent restenosis. 2. Occluded circumflex stent which was seen previously in 2007. 3. High-grade disease involving the mid right coronary artery, status post successful percutaneous c oronary intervention using a Synergy drug-eluting stent. /[id number]/MODL
--- NOTE | 2017-05-08 12:12 | CPEKG ---
Heart Rate: 65 RR Interval: 923 P-R Interval: 196 QRSD Interval: 100 QT Interval: 448 QTC Interval: 466 P [place]: 66 QRS [place]: -13 T Wave [place]: 60 EKG Severity - BORDERLINE ECG - EKG Impression: SINUS RHYTHM EKG Impression: BORDERLINE T WAVE ABNORMALITIES Electronically Signed By: Jose Sosa 09-May-2017 08:52:05
[2017-05-08] MEDS: METOPROLOL SUCCINATE XR 100 MG TAB PO SCH (12:21)
[2017-05-08] MEDS: LISINOPRIL 40 MG TAB PO SCH (12:21)
[2017-05-08] MEDS: HYDROCHLOROTHIAZIDE 25 MG TAB PO SCH (12:21)
[2017-05-08] MEDS: COLCHICINE 0.6 MG CAP/TAB PO SCH (12:22)
[2017-05-08] MEDS: amLODIPine BESYLATE 5 MG TAB PO SCH (12:23)
[2017-05-08] MEDS: ASCORBIC ACID 500 MG TAB PO SCH (12:23)
[2017-05-08] MEDS: ASPIRIN EC 325 MG TAB PO SCH (12:24)
--- NOTE | 2017-05-08 14:43 | HOSPPROG ---
Hospitalist Progress Note Assessment/Plan: New pt encounter 72 yo M p/w acute chest pain. Cardiac cath performed 05/08 with stenting of RCA. Also showed chronically occluded circumflex stent and patent LAD stent with no e /o in stent re-stenosis. # Chest pain. Acute, new problem to this provider, further w/u indicated. Possible etiologies include ACS (given CAD hx) vs. tachyarrhythmia (given report of HR 144) vs. GERD (given PO intake immediately prior to onset) -s/p RCA stenting -plavix/Aspiring -monitor overnight # CAD. Chronic, cont home Rx once reconciled, already took bblocker this AM # DM2. Chronic, cont home Rx # Bladder cancer. Reviewed outside records including CT from 04/15/17 demonstrating bladder mass - has outpt surgery w/ Dr. Aden in 1 week, recommend cardiac risk stratification before that time Diet. ADA PPx. SCD's Code. Full Dispo. Make inpatient Subjective: had cardiac cath today. Stent of RCA Objective: Vital Signs Temp Pulse Resp BP Pulse Ox 36.7 C 64 16 165/86 H 94 05/08/17 12:50 05/08/17 12:50 05/08/17 12:50 05/08/17 12:50 05/08/17 12:50 Laboratory Results 05/08/17 05:06 05/08/17 05:06 05/07/17 05/08/17 05/09/17 05:59 05:59 05:59 Intake Total 600 200 Output Total 700 Balance -100 200 PT 14.5 SEC (12.0-15.0) 05/07/17 17:30 INR 1.14 (0.83-1.16) 05/07/17 17:30 - Physical Exam Constitutional: no apparent distress Eyes: PERRL Ears, Nose, Mouth, Throat: moist mucous membranes, hearing normal Cardiovascular: regular rate and rhythym, No edema Respiratory: no respiratory distress, no rales or rhonchi, clear to auscultation Gastrointestinal: normoactive bowel sounds, soft, non-tender abdomen Skin: warm Neurologic: AAOx3 Psychiatric: interacting appropriately, not anxious, not encephalopathic ICD10 Worksheet Patient Problems: Problems Problem Status Onset Chest pain Acute Arthritis of knee Acute Arthritis of knee, left Acute
--- NOTE | 2017-05-08 15:04 | ASMTCMCOM ---
CM Note CM Note Notes: Patient had cardiac cath today with stenting of the RCA. Will remain inpatient overnight for monitoring; anticipate discharge tomorrow. Patient lives independently with and is independent in ADLs. No discharge needs anticipated; CM available if needs change. Current D/C plan: home independent Date Signed: 05/08/2017 03:03 PM Electronically Signed By:Yue Chacon RN
--- NOTE | 2017-05-08 16:21 | PDMN ---
Medical Necessity Medical necessity: change to IP; los>2mn for continued monitoring for acute chest pain, s/p cath with RCA stent; hx CAD, DM2, bladder cancer; per progress note & order 05/08/17
--- NOTE | 2017-05-08 17:06 | GCON ---
[f rep st] CONSULTATION DATE OF CONSULTATION: 05/08/2017 CHIEF COMPLAINT: We have been asked by Dr. Perez to evaluate the patient with a chief complaint of chest pain. HISTORY OF PRESENT ILLNESS: The patient is a 72-year-old gentleman with known coronary artery disehomero hobbs, who presented to the hospital on 05/07/2017 with a chief complaint of chest pain. The patient was in his usual state of health until the day of admission, when he began to experience some chest disc omfort. The discomfort is described as a tightness extending across his chest. The chest discomfort was not associated with nausea, vomiting, or diaphoresis. The patient experienced several episodes of the chest discomfort throughout the day. On returning home after picking up his at the [facility], he went to his office and took his blood pressure. At that time, he noticed his blood pressure w as significantly elevated, and his heart rate was elevated in the 140s to 150s range. He thought thi s was abnormal and presented to the emergency department for further evaluation. In the emergency de partment, he had an EKG performed, demonstrating no acute ST or T-wave changes. He also had biomarke rs performed, demonstrating a mildly elevated troponin of 0.083. The patient was admitted to the [facility], and we have been asked to further evaluate this patient. The patient has known coronary arter y disease. His initial episode was in 2000 when he presented with symptoms of angina. He was treate d with percutaneous coronary intervention of his circumflex coronary artery at that time. In 2007, darren hobbs had an abnormal stress test and underwent cardiac catheterization. Cardiac catheterization at that time demonstrated an occluded circumflex stent with collaterals from the left anterior descending co ronary artery. The patient was also noted to have high-grade disease involving the mid left anterior descending coronary artery. He was treated with percutaneous coronary intervention using a drug-elu ting stent. The patient did well following this intervention until the day of admission, when he dev eloped recurrent anginal type symptoms and an elevated heart rate on home monitoring. PAST MEDICAL HISTORY: 1. Coronary artery disease. 2. Hypertension. 3. Hyperlipidemia. 4. Type 2 diabetes mellitus. 5. Hypothyroidism. 6. Gout. 7. Status post bilateral total knee arthroplasties. 8. Probable bladder cancer. MEDICATIONS: Please see medicine reconciliation form. ALLERGIES: No known drug allergies. 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 He does not smoke. He denies problem s with alcohol. FAMILY HISTORY: Noncontributory. REVIEW OF SYSTEMS: Ten-point review of systems is negative, except as noted in HPI. PHYSICAL EXAMINATION: GENERAL: The patient is resting comfortably in a chair. He does not appear t o be in acute distress. VITAL SIGNS: Temperature is afebrile. Pulse is 63. Blood pressure 152/85, respiratory rate 14, SaO2 94% on room air. HEENT: Normocephalic, atraumatic. Extraocular muscles intact. NECK: No JVD. No bruits. LUNGS: Clear to auscultation bilaterally. CARDIOVASCULAR: Reg ular rate and rhythm. S1, S2. Grade 2/6 systolic ejection murmur is noted at the left sternal borde r. ABDOMEN: Soft, nontender. Normoactive bowel sounds. No hepatosplenomegaly. Aorta could not be palpated. EXTREMITIES: No clubbing, cyanosis, or edema. SKIN: There is evidence of ecchymosis on his hands. NEURO: Patient is awake, alert, and oriented x3. LABORATORY DATA: White blood cell count is 5.43, hemoglobin 16.2, hematocrit 44.0, platelet count 98 , sodium 140, potassium 3.7, chloride 102, CO2 22, BUN 20, creatinine 1.0. Troponin 0.083, 0.203, 0. 138. EKG demonstrates sinus rhythm, normal axis, normal intervals, left atrial enlargement, nonspeci fic ST and T-wave changes in the inferior and lateral leads. ASSESSMENT AND PLAN: The patient is a 72-year-old gentleman with: 1. Acute coronary syndrome. The patient has known coronary artery disease and is status post previo us percutaneous coronary intervention of his left anterior descending and circumflex coronary arterie s. He presents with chest tightness consistent with angina. He has a mildly elevated troponin, jens cating myocardial irritation. His EKG demonstrates no acute ST or T-wave changes. Reviewed options for risk stratification, including stress testing and cardiac catheterization. The patient wishes to pursue cardiac catheterization. Will arrange to have this performed. 2. Tachycardia. The patient was noted to have an elevated heart rate on home blood pressure cuff mo nitoring. He denies symptoms of palpitations, syncope or presyncope. No significant arrhythmias hav e been noted on telemetry monitoring. We will continue to monitor patient on telemetry for arrhythmi as that could potentially contribute to his symptoms. /[id number]/MODL
[2017-05-08 20:23] VITALS: TEMP 98.1
[2017-05-08] MEDS ORDERED: Saxagliptin Hcl [Onglyza] 5 MG PO SCH (21:00)
[2017-05-08 23:20] VITALS: RESP 14
[2017-05-09] MEDS: ATORVASTATIN CALCIUM 20 MG TAB PO SCH (00:10)
[2017-05-09] MEDS: CHOLECALCIFEROL VIT D3 1,000 UNITS TAB PO SCH (00:10)
[2017-05-09] MEDS: LISINOPRIL 40 MG TAB PO SCH ×2 (00:10→08:22)
[2017-05-09] MEDS: COLCHICINE 0.6 MG CAP/TAB PO SCH ×2 (00:10→08:22)
[2017-05-09 03:50] VITALS: BP 154/82; PULSE 55; O2SAT 95
[2017-05-09] MEDS: LEVOTHYROXINE 50 MCG TAB PO SCH (03:54)
[2017-05-09 04:36] LABS: PLATELET COUNT 96 10^3/uL (150-400)
[2017-05-09] MEDS: amLODIPine BESYLATE 5 MG TAB PO SCH (08:22)
[2017-05-09] MEDS: ASPIRIN EC 325 MG TAB PO SCH (08:22)
[2017-05-09] MEDS: ASCORBIC ACID 500 MG TAB PO SCH (08:22)
[2017-05-09] MEDS: HYDROCHLOROTHIAZIDE 25 MG TAB PO SCH (08:22)
[2017-05-09] MEDS: METOPROLOL SUCCINATE XR 100 MG TAB PO SCH (08:23)
--- NOTE | 2017-05-09 08:37 | CPEKG ---
Heart Rate: 60 RR Interval: 1000 P-R Interval: 196 QRSD Interval: 100 QT Interval: 444 QTC Interval: 444 P [place]: 29 QRS [place]: -33 T Wave [place]: 47 EKG Severity - BORDERLINE ECG - EKG Impression: SINUS RHYTHM EKG Impression: LEFT AXIS DEVIATION EKG Impression: BORDERLINE T WAVE ABNORMALITIES Electronically Signed By: Jose Sosa 09-May-2017 08:52:00
--- NOTE | 2017-05-09 08:37 | CPEKG ---
Heart Rate: 60 RR Interval: 1000 P-R Interval: 196 QRSD Interval: 100 QT Interval: 444 QTC Interval: 444 P [place]: 29 QRS [place]: -33 T Wave [place]: 47 EKG Severity - BORDERLINE ECG - EKG Impression: SINUS RHYTHM EKG Impression: LEFT AXIS DEVIATION EKG Impression: BORDERLINE T WAVE ABNORMALITIES Electronically Signed By: Jose Sosa 09-May-2017 08:52:00
[2017-05-09] MEDS ORDERED: CLOPIDOGREL BISULFATE 75 MG TAB PO SCH (09:00)
[2017-05-09] MEDS ORDERED: Febuxostat [Uloric] 40 MG PO SCH (09:00)
--- NOTE | 2017-05-09 15:57 | ASDISCHSUM ---
Discharge Information Plan Status:Home with No Needs Medically Cleared to Leave:05/08/2017 Discharge Date:05/09/2017 09:20 AM CM D/C Disposition: ADT D/C Disposition:Home, Routine, Self-Care Projected Discharge Date:05/09/2017 07:31 PM Transportation at D/C: Discharge Delay Reason: Follow-Up Date:05/09/2017 07:31 PM Discharge Slot: Final Diagnosis: Placement Information Patient Contact Information Contact Name:MILLICENT Relationship: Address:[address] City:[place] Alternate Phone: [facility]/Zip Code:[place] [address] Email: Financial Information Financial Class: Primary Plan Desc:MEDICARE INPATIENT Primary Plan Number:[id number] Secondary Plan Desc:[facility] [place] Secondary Plan Number:[id number] Assessment Information [facility] CM Progress Note CM Note CM Note Notes: Patient had cardiac cath today with stenting of the RCA. Will remain inpatient overnight for monitoring; anticipate discharge tomorrow. Patient lives independently with and is independent in ADLs. No discharge needs anticipated; CM available if needs change. Current D/C plan: home independent Date Signed: 05/08/2017 03:03 PM Electronically Signed By:Yue Chacon RN Intervention Information Intervention Type:*MCKEON-Signed Date of Service:05/08/2017 02:14 PM Patient Type:Observation Staff Member:Rody Jacobsen Hours: Discipline: Severity: Comment: Intervention Type:*Eloy 70 Date of Service:05/07/2017 09:48 AM Patient Type:Inpatient Staff Member:LAUREN Salmeron Courtney Hours: Discipline: Severity: Comment:
--- NOTE | 2017-05-09 15:57 | ASDISCHSUM ---
Discharge Information Plan Status:Home with No Needs Medically Cleared to Leave:05/08/2017 Discharge Date:05/09/2017 09:20 AM CM D/C Disposition: ADT D/C Disposition:Home, Routine, Self-Care Projected Discharge Date:05/09/2017 07:31 PM Transportation at D/C: Discharge Delay Reason: Follow-Up Date:05/09/2017 07:31 PM Discharge Slot: Final Diagnosis: Placement Information Patient Contact Information Contact Name:MILLICENT Relationship: Address:[address] City:[place] Alternate Phone: [facility]/Zip Code:[place] [address] Email: Financial Information Financial Class: Primary Plan Desc:MEDICARE INPATIENT Primary Plan Number:[id number] Secondary Plan Desc:[facility] [place] Secondary Plan Number:[id number] Assessment Information [facility] CM Progress Note CM Note CM Note Notes: Patient had cardiac cath today with stenting of the RCA. Will remain inpatient overnight for monitoring; anticipate discharge tomorrow. Patient lives independently with and is independent in ADLs. No discharge needs anticipated; CM available if needs change. Current D/C plan: home independent Date Signed: 05/08/2017 03:03 PM Electronically Signed By:Yue Chacon RN Intervention Information Intervention Type:*MCKEON-Signed Date of Service:05/08/2017 02:14 PM Patient Type:Observation Staff Member:Rody Jacobsen Hours: Discipline: Severity: Comment: Intervention Type:*Eloy 72 Date of Service:05/07/2017 09:48 AM Patient Type:Inpatient Staff Member:LAUREN Salmeron Courtney Hours: Discipline: Severity: Comment:
--- NOTE | 2017-05-09 15:57 | ASDISCHSUM ---
Discharge Information Plan Status:Home with No Needs Medically Cleared to Leave:05/08/2017 Discharge Date:05/09/2017 09:20 AM CM D/C Disposition: ADT D/C Disposition:Home, Routine, Self-Care Projected Discharge Date:05/09/2017 07:31 PM Transportation at D/C: Discharge Delay Reason: Follow-Up Date:05/09/2017 07:31 PM Discharge Slot: Final Diagnosis: Placement Information Patient Contact Information Contact Name:MILLICENT Relationship: Address:[address] City:[place] Alternate Phone: [facility]/Zip Code:[place] [address] Email: Financial Information Financial Class: Primary Plan Desc:MEDICARE INPATIENT Primary Plan Number:[id number] Secondary Plan Desc:[facility] [place] Secondary Plan Number:[id number] Assessment Information [facility] CM Progress Note CM Note CM Note Notes: Patient had cardiac cath today with stenting of the RCA. Will remain inpatient overnight for monitoring; anticipate discharge tomorrow. Patient lives independently with and is independent in ADLs. No discharge needs anticipated; CM available if needs change. Current D/C plan: home independent Date Signed: 05/08/2017 03:03 PM Electronically Signed By:Yue Chacon RN Intervention Information Intervention Type:*MCKEON-Signed Date of Service:05/08/2017 02:14 PM Patient Type:Observation Staff Member:Rody Jacobsen Hours: Discipline: Severity: Comment: Intervention Type:*Eloy 72 Date of Service:05/07/2017 09:48 AM Patient Type:Inpatient Staff Member:LAUREN Salmeron Courtney Hours: Discipline: Severity: Comment:
--- NOTE | 2017-05-09 19:38 | GDS ---
[f rep st] DISCHARGE SUMMARY DISCHARGE DIAGNOSIS: Acute coronary syndrome. HISTORY: The patient is a 72-year-old gentleman with known coronary artery disease who was admitted on 05/07/2017, with an acute coronary syndrome. His EKG demonstrated no acute ST or T-wave changes. His troponins, however, were mildly elevated. The patient was taken to the cardiac catheterization laboratory on 05/08/2017, for risk stratification. Coronary angiography demonstrated patent LAD stent with no significant obstructive disease involving the left anterior descending coronary artery. The circumflex coronary artery was previously stented in the first OM artery. The previously placed stent was occluded and was being fed by collaterals fr om the left anterior descending coronary artery. This was unchanged from 2007. The right coronary a rtery had an 85% stenosis in the mid vessel. FFR was performed, demonstrating flow limitation involv ing the right coronary artery. Patient was treated with percutaneous coronary intervention of the ri ght coronary artery using a Synergy drug-eluting stent. The patient's postprocedural course was unco mplicated. He denied symptoms of recurrent angina, congestive heart failure, and had no significant arrhythmias on telemetry monitoring. Hypertension. The patient has a long history of hypertension. His blood pressure was reasonably wel l controlled on amlodipine, hydrochlorothiazide, lisinopril and metoprolol. Hyperlipidemia. The patient has a long history of hyperlipidemia. He has been managed with Lipitor 20 mg daily. This medication was continued. Tachycardia. The patient noted an elevated heart rate on home blood pressure cuff monitoring. Patie nt denied symptoms of palpitations, syncope, or presyncope with the elevated heart rate. Telemetry m onitoring while in the hospital demonstrated no significant arrhythmias. We will consider outpatient Holter monitoring. SUMMARY OF PRESENTATION AND COURSE: The patient is a 72-year-old gentleman with known coronary arter y disease who presented with crescendo anginal symptoms consistent with an acute coronary syndrome. His initial EKG demonstrated no acute ST or T-wave changes. His initial troponin, however, was mildl y elevated. Patient was admitted to the hospital for further evaluation and treatment. While in the hospital, he remained pain free. He was taken to the cardiac catheterization laboratory for cardiac catheterization. Coronary angiography demonstrated patent LAD stent, occluded circumflex stent whic h was known to be occluded in 2007, as well as de Eula high-grade disease involving the right coronar y artery. The patient was treated with percutaneous coronary intervention of his right coronary tanisha ry using a Synergy drug-eluting stent. The patient's postprocedural course was uncomplicated. At th e time of discharge, he is ambulating without difficulty. He denied symptoms of angina and CHF. The re were no significant arrhythmias on telemetry monitoring. PHYSICAL EXAM: At the time of discharge: GENERAL: The patient is resting comfortably in bed. He d id not appear to be in acute distress. VITAL SIGNS: Temperature is afebrile. Pulse was 55, blood p ressure 154/82, respiratory rate 14, SaO2 95% on room air. LUNGS: Clear to auscultation bilaterally . CARDIOVASCULAR: Regular rate and rhythm. S1, S2. No murmurs, rubs, or gallops appreciated. EXT REMITIES: No clubbing, cyanosis, or edema. No evidence of a hematoma or ecchymosis. 2+ dorsalis pe dis pulse. LABORATORY: At the time of discharge, sodium 141, potassium 3.6, chloride 104, CO2 26, BUN 23, creat inine 1.1. White blood cell count 5.51, hemoglobin 15.3, hematocrit 42.4, platelet count was 96. DISCHARGE MEDICATIONS: Please see medicine reconciliation form. The patient's only new medication w ill be Plavix 75 mg daily. ARRANGEMENTS FOR FOLLOWUP CARE: 1. The patient should follow up with Dr. Gamino in approximately 1-2 weeks' period of time for lesa in check and evaluation. 2. Patient should return to the emergency department for recurrent symptoms of angina. 3. Patient should return to the emergency department for groin complications as outlined at the time of discharge. /[id number]/MODL
== END 2017-05-09 09:20 | disposition home or self-care (01) | DRG 247 ==
LOC: F2W 19:39 → OBSVTOIN 05-08 15:29
PROVIDERS: ADMIT Internal Medicine; ATTEND Internal Medicine
DX: I24.9 Acute ischemic heart disease, unspecified (principal); I25.10 Atherosclerotic heart disease of native coronary artery without angina pectoris; I10 Essential (primary) hypertension; E78.5 Hyperlipidemia, unspecified; E11.9 Type 2 diabetes mellitus without complications; E03.9 Hypothyroidism, unspecified; M10.9 Gout, unspecified; C67.9 Malignant neoplasm of bladder, unspecified; Z95.5 Presence of coronary angioplasty implant and graft; Z87.891 Personal history of nicotine dependence; Z96.653 Presence of artificial knee joint, bilateral
CPT/HCPCS: C1725; C1760; C1769; C1874; C1887; C9600; G0378; J0153; J0583; J1200; J1644; J1650; J2250; J3010; J3490; Q9967

== ENCOUNTER 2017-06-13 11:54 | Inpatient (IN) | payer OTHER ==
[2017-06-13] MEDS ORDERED: LR 1,000 ML IV ONE (12:23)
[2017-06-13] MEDS ORDERED: LIDOCAINE 1% 2 ML INJ ID PRN (12:23)
[2017-06-13] MEDS ORDERED: levOFLOXACIN 500 MG/DEXTROSE 100 ML IV ONE (14:15)
--- NOTE | 2017-06-13 14:41 | PDHPUP ---
History & Physical Update H&P update statement: This history and physical update is based on an assessment of the patient which was completed after admission or registration (within 24 hours), but prior to the surgery/procedure. H&P update: no change in patient's condition since H&P completed
--- NOTE | 2017-06-13 14:53 | PDANEPAE ---
ANE History of Present Illness BLADDER TUMOR. Recent IGNACIA placed ~1 month ago for ACS, OK by cardiology to hold anticoagulation and proceed with elective surgery ANE Past Medical History - Cardiovascular History Hx Hypertension: Yes Hx Arrhythmias: No Hx Chest Pain: No Hx Coronary Artery / Peripheral Vascular Disease: Yes Hx CHF / Valvular Disease: No Hx Palpitations: No Cardiovascular History Comment: cad stents x3: 2004 & 2008,05-08-17. hyperlipidemia. hypercholesterolemia - Pulmonary History Hx COPD: No Hx Asthma/Reactive Airway Disease: No Hx Recent Upper Respiratory Infection: No Hx Oxygen in Use at Home: No Hx Sleep Apnea: No Sleep Apnea Screening Result - Last Documented: Positive Pulmonary History Comment: toi triggers - Neurologic History Hx Cerebrovascular Accident: No Hx Seizures: No Hx Dementia: No Neurologic History Comment: Diplopia in 2010 (transient) with subsequent diagosis Left Cerebellar Lesion - Endocrine History Hx Diabetes: Yes Obesity: no Endocrine History Comment: type 2 - Renal History Hx Renal Disorders: Yes Renal History Comment: BPH. bladder tumors currently - Liver History Hx Hepatic Disorders: No - Neurological & Psychiatric Hx Hx Neurological and Psychiatric Disorders: No - Cancer History Hx Cancer: No Cancer History Comment: Right Ear Skin Mole Removed - Congenital Disorder History Hx Congenital Disorders: No - GI History Hx Gastrointestinal Disorders: No Gastrointestinal History Comment: HX POLYP - Other Health History Other Health History: gout. wears contacts - Chronic Pain History Chronic Pain: No (right hand- arthritic) - Surgical History Prior Surgeries: cardiac stent 05-08-17. 2012 Right Knee Replacement with Alireza. left knee replacement with Alireza 10/05/13 ANE Review of Systems Review of systems is: negative Review of Systems: - Exercise capacity METS (RN): 4 METS ANE Patient History - Allergies Allergies/Adverse Reactions: No Known Allergies Allergy (Verified 05/29/17 11:39) - Home Medications Home medications: home medication list seen and reviewed Home Medications: Ascorbic Acid [Vitamin C 500 mg (*)] 1,000 mg PO DAILY 05/07/17 [Last Taken 03/17] Atorvastatin Calcium [Lipitor 20 mg (*)] 20 mg PO HS 05/07/17 [Last Taken ] Cholecalciferol Vit D3 [Vitamin D3 (*)] 2,000 units PO HS 05/07/17 [Last Taken 06/09/17] Febuxostat [ULORIC] 40 mg PO BID 05/07/17 [Last Taken 06/12/17] Hydrochlorothiazide [HCTZ (*)] 25 mg PO DAILY 05/07/17 [Last Taken 06/11/17] Levothyroxine [Synthroid 50 mcg (*)] 50 mcg PO DAILY06 05/07/17 [Last Taken ] Lisinopril [Zestril 40 mg (*)] 40 mg PO BID 05/07/17 [Last Taken 06/12/17] Metoprolol Succinate Xr [Toprol Xl 100 mg (*)] 100 mg PO DAILY 05/07/17 [Last Taken 06/12/17] Saxagliptin HCl [Onglyza] 5 mg PO HS 05/07/17 [Last Taken 06/12/17] metFORMIN HCL [Glucophage 1000 mg] 1,000 mg PO BIDMEAL 05/07/17 [Last Taken 06/16] amLODIPine BESYLATE [Norvasc 10 mg (*)] 10 mg PO DAILY 06/12/17 [Last Taken ] Aspirin [Aspirin 81mg (*)] EVERY OTHER DAY 06/13/17 [Last Taken 06/08/17] - NPO status NPO Since - Liquids (Date): 06/13/17 NPO Since - Liquids (Time): 11:30 NPO Since - Solids (Date): 06/12/17 NPO Since - Solids (Time): 20:00 - Anes Hx Anes Hx: no prior problems - Smoking Hx Smoking Status: Former smoker - Family Anes Hx Family Hx Anesthesia Complications: None ANE Labs/Vital Signs - Vital Signs Blood Pressure: 164/88 Heart Rate: 65 Respiratory Rate: 16 O2 Sat (%): 94 Height: 175.26 cm Weight: 77.111 kg ANE Physical Exam - Airway Neck exam: FROM Mallampati Score: Class 2 Mouth exam: normal dental/mouth exam, small mouth opening - Pulmonary Pulmonary: no respiratory distress - Cardiovascular Cardiovascular: regular rate and rhythym - ASA Status ASA Status: III ANE Anesthesia Plan Anesthesia Plan: general endotracheal anesthesia Specialized Airway: video laryngoscope
[2017-06-13] MEDS ORDERED: fentaNYL 100 MCG/2 ML INJ ONE ×4 (15:00→20:54)
[2017-06-13] MEDS ORDERED: PROPOFOL 200 MG/20 ML VIAL ONE ×2 (15:00→16:42)
[2017-06-13] MEDS ORDERED: LIDOCAINE 2% 5 ML SDV ONE (15:01)
[2017-06-13] MEDS ORDERED: SUGAMMADEX SODIUM 200 MG/2 ML VIAL IVP ONE (15:02)
[2017-06-13] MEDS ORDERED: DEXAMETHASONE 4 MG/ML VIAL ONE (15:02)
[2017-06-13] MEDS ORDERED: ROCURONIUM 50 MG/5 ML VIAL ONE (15:02)
[2017-06-13] MEDS ORDERED: ONDANSETRON 4 MG/2 ML VIAL ONE (15:02)
[2017-06-13] MEDS ORDERED: METOPROLOL TARTRATE 5 MG/5 ML INJ ONE (15:06)
[2017-06-13] MEDS ORDERED: LABETALOL HCL 5 MG/ML 20 ML MDV ONE ×2 (15:26→17:08)
[2017-06-13] MEDS ORDERED: HYDROCODONE/APAP 5/325 TAB PO PRN (17:08)
[2017-06-13] MEDS ORDERED: METOCLOPRAMIDE 10 MG/2 ML VIAL IVP PRN (17:08)
[2017-06-13] MEDS ORDERED: ACETAMINOPHEN 500 MG TAB PO PRN (17:08)
[2017-06-13] MEDS ORDERED: OXYCODONE/APAP 5/325 TAB PO PRN ×2 (17:08→17:21)
[2017-06-13] MEDS ORDERED: HYDROmorphONE/DILAUDID 1 MG/ML INJ IVP PRN (17:08)
[2017-06-13] MEDS ORDERED: ALBUTEROL 3 ML DEYVIAL IH PRN (17:08)
[2017-06-13] MEDS ORDERED: NALOXONE HCL 0.4 MG/ML INJ IVP PRN ×2 (17:08→17:58)
[2017-06-13] MEDS ORDERED: PROMETHAZINE HCL 25 MG/ML INJ IVP PRN ×2 (17:08→17:21)
[2017-06-13] MEDS ORDERED: ONDANSETRON 4 MG/2 ML VIAL IVP PRN ×2 (17:08→17:21)
[2017-06-13] MEDS ORDERED: LR 500 ML IV PRN (17:08)
--- NOTE | 2017-06-13 17:09 | POSTANESTH ---
Post Anesthetic Evaluation Cardiovascular Status: Normal, Stable Respiratory Status: Normal, Stable Level of Consciousness/Mental Status: Can Participate in Eval Pain Control: Adequate, Prn Tx Ordered Nausea/Vomiting Control: Adequate, Prn Tx Ordered Complications Possibly Related to Anesthesia: None Noted
[2017-06-13] MEDS: LABETALOL HCL 5 MG/ML 20 ML MDV IVP PRN ×3 (17:10→17:42)
--- NOTE | 2017-06-13 17:13 | POSTOPPROG ---
Post Op Note Date of Operation: 06/13/17 Surgeon: Elias Aden (# [id number]) Anesthesia: GET(General Endotracheal) Pre-op Diagnosis: Large bladder tumor > 5 cm Post-op Diagnosis: Large bladder tumor > 5 cm Procedure: TURBT Findings: See op note Inf/Abcess present in the surg proc area at time of surgery?: No EBL: 50-100 (50 cc) Complications: None Specimen(s): 1. Dome bladder tumor 2. Posterior bladder tumor (near dome)
[2017-06-13] MEDS ORDERED: ZOLPIDEM TARTRATE 5 MG TAB PO PRN (17:20)
[2017-06-13] MEDS ORDERED: OPIUM/BELLADONNA ALKALO SUPP PR PRN (17:20)
[2017-06-13] MEDS ORDERED: LIDOCAINE 2% JELLY 5 ML TUBE TP PRN (17:21)
[2017-06-13] MEDS ORDERED: HYDROmorphone HCL/NS/PF 0.4 MG/2 ML SYR IVP PRN (17:21)
[2017-06-13] MEDS ORDERED: NITROGLYCERIN 0.4 MG BTL SL PRN (17:25)
[2017-06-13] MEDS ORDERED: 1/2 NS 1,000 ML IV SCH (17:30)
[2017-06-13] MEDS ORDERED: D50W 25 GM/50 ML VIAL IVP PRN (17:33)
[2017-06-13] MEDS ORDERED: PARAMETERS MISC PRN (17:33)
[2017-06-13] MEDS ORDERED: ENALAPRILAT DIHYDRATE 1.25 MG/ML VIAL ONE ×2 (18:03→18:18)
[2017-06-13] MEDS: ENALAPRILAT DIHYDRATE 1.25 MG/ML VIAL IVP PRN ×2 (18:04→18:20)
[2017-06-13] MEDS: fentaNYL 100 MCG/2 ML INJ IVP PRN ×2 (18:33→20:57)
[2017-06-13] MEDS ORDERED: LIDOCAINE 2% JELLY 20 ML (UROJECT) UR ONE (21:15)
[2017-06-13] MEDS ORDERED: hydrALAZINE 20 MG/ML VIAL IVP PRN (22:33)
[2017-06-13] MEDS: LISINOPRIL 40 MG TAB PO SCH (23:20)
[2017-06-14] MEDS: ATORVASTATIN CALCIUM 20 MG TAB PO SCH ×2 (01:10→22:02)
[2017-06-14] MEDS: metFORMIN HCL 500 MG TAB PO SCH ×4 (01:11→19:30)
[2017-06-14] MEDS: INSULIN REGULAR HUMAN 100 UNIT/ML SC SCH ×5 (01:11→22:14)
[2017-06-14] MEDS: Febuxostat [Uloric] 40 MG PO SCH ×3 (01:17→22:13)
[2017-06-14] MEDS: Saxagliptin Hcl [Onglyza] 5 MG PO SCH ×2 (01:18→22:02)
[2017-06-14 03:53] LABS: HEMATOCRIT 37.6 % (40.0-51.0); HEMOGLOBIN 13.8 g/dL (13.7-17.5); MEAN CELL HEMOGLOBIN 32.9 pg (27.9-34.1); MEAN CELL HEMOGLOBIN CONCENTR. 36.7 g/dL (32.4-36.7); MEAN CELL VOLUME 89.5 fL (81.5-99.8); RED BLOOD CELL COUNT 4.2 10^6/uL (4.40-6.38); RED CELL DISTRIBUTION WIDTH 12.8 % (11.5-15.2)
--- NOTE | 2017-06-14 03:54 | GOP ---
[f rep st] OPERATIVE REPORT DATE OF OPERATION: 06/13/2017 SURGEON: Elias Aden MD ANESTHESIA: General endotracheal. PREOPERATIVE DIAGNOSIS: Large bladder tumor, greater than 5 cm. POSTOPERATIVE DIAGNOSIS: Large bladder tumor, greater than 5 cm. PROCEDURE PERFORMED: Transurethral resection of large bladder tumor. FINDINGS: Numerous papillary bladder tumors collectively measuring greater than 5 cm, as illustrated in the body of the operative report. SPECIMENS: 1. Dome bladder tumor. 1. Posterior bladder tumor (near dome). 2. ESTIMATED BLOOD LOSS: Approximately 50 cc. INDICATIONS: This gentleman recently presented to my office with gross hematuria and urinary tract e valuation revealed multiple bladder tumors, which collectively measured well over 5 cm in diameter. The patient was initially scheduled to undergo transurethral resection a little over 1 month ago, but then developed acute coronary syndrome that required coronary stenting the day prior to this planned surgery. Surgery was therefore postponed for approximately 1 month. He presents at this time for s urgical management. The indications for the procedure as well as potential risks and complications w ere discussed with the patient preoperatively. He appeared to understand, his questions were answere d, and he wished to proceed. Written and informed surgical consent was thereafter obtained. DESCRIPTION OF PROCEDURE: The patient was brought to the operating room and administered general end otracheal anesthesia. He was carefully placed in the dorsal lithotomy position on the cystoscopic ta ble. The genital area was sterilely prepped with Betadine, scrubbed and painted, and draped in the u sual sterile fashion. Cystoscopy was initially performed with the 30-degree and 70-degree lenses thr ough a 22-Filipino sheath. The anterior urethra revealed no abnormalities. The posterior urethra reve aled moderate circumferential BPH with a small to mild sized median lobe encroaching onto the trigone . The bladder was moderately trabeculated. Examination of the bladder revealed numerous papillary a ppearing tumors along the right anterolateral wall posteriorly and the dome. The posterior tumor was close to the dome. The dome tumor also continued anteriorly toward the bladder neck. Ureteral orif ices were normal in regard to shape and position along the trigone. I then removed the cystoscope and carefully dilated the anterior urethra with [place] sounds up to 28-Filipino. The 26-Filipino resectoscopic sheath with obturator was then inserted. The coJuvo resectos cope with a standard resecting loop was then inserted. Using normal saline continuous flow, I carefu lly and systematically resected the dome tumor first. It was collected and sent to pathology as a tammy galdamez. I then resected the posterior and anterolateral tumors, which took quite some time due to th e size of the tumor as well as its difficult location for access transurethrally. I also wanted to e nsure that it did not perforate the bladder during the course of the resection. I was able to remove the tumors completely along with what appeared to be muscularis propria in several areas. A button electrode was then used to thoroughly fulgurate the base of the tumors as well as a margin of normal- appearing urothelium around the tumors. The specimens were obtained using an Rec[employer]arm evacuator as venessa cunningham. After completely resecting and fulgurating the tumors and the tumor site, I was ready to conc lude the procedure. The instruments were removed and I inserted a 20-Filipino through a 3-way Roberts ca theter. However, there was still some bleeding noted from the urine return. I therefore reinserted the resectoscopic sheath and Boyd resectoscope with a button electrode. There appeared to be scar e bleeding from the median lobe of the prostate. This was thoroughly fulgurated. Thereafter, the ur ine return was nearly clear. The instruments were removed and the 20-Filipino 3-way Roberts catheter was re-inserted with 20 cc of sterile fluid placed in the balloon. Continuous irrigation was initiated. The catheter irrigated manually and the return was nearly clear. The catheter was connected to bag drainage. The patient was then awakened, extubated, transferred to his bed, and then taken to the r ecovery room. He tolerated the procedure well overall. COMPLICATIONS: None. DISPOSITION: He was transferred to the recovery room in stable condition. He will be admitted overn [facility] for continuous bladder irrigation. /[id number]/MODL
[2017-06-14 04:06] LABS: ANION GAP 16 mEq/L (8-16); CALCIUM 8.7 mg/dL (8.5-10.4); CARBON DIOXIDE 21 mEq/l (22-31); CHLORIDE 102 mEq/L (97-110); CREATININE 1.1 mg/dL (0.7-1.3); GLOMERULAR FILTRATION RATE > 60; GLUCOSE 325 mg/dL (70-100); POTASSIUM 4.7 mEq/L (3.5-5.2); SODIUM 139 mEq/L (134-144)
--- NOTE | 2017-06-14 05:59 | GCON ---
[f rep st] CONSULTATION DATE OF CONSULTATION: 06/13/2017 REFERRING PHYSICIAN: Dr. Aden REASON FOR CONSULTATION: Uncontrolled hypertension. PRIMARY GENERAL FARM MANAGER: Dr. Gamino. HISTORY OF PRESENT ILLNESS: A 72-year-old male with past medical history of bladder cancer, coronary artery disease with recent RCA stent in 05/2017, hypertension, who underwent TURP today. Since being in the PACU, his blood pressures remained elevated as high as 217/105. Throughout the day, he was not having any pain. He did develop pain twice this evening secondary to a blood clot in his Roberts. He has been off his hydrochlorothiazide for 1 week. He did take his metoprolol today, but did not take his lisinopril. He currently denies any chest pain, shortness of breath, headache, visual changes, numbness, or tingling. The bladder spasm has since passed. REVIEW OF SYSTEMS: I completed a 10-point review of systems, negative except as noted in HPI. PAST MEDICAL HISTORY: 1. Coronary artery disease with prior stent to OM1, occluded since 2007, LAD that was patent during last stent. He has a new RCA stent 05/2017. 2. Hypertension. 3. Type 2 diabetes. 4. Bladder cancer. 5. Hyperlipidemia. 6. Hypothyroidism. 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 No alcohol, tobacco, or illicits. Lives here in [place]. PAST SURGICAL HISTORY: Bilateral TKA with 1 revision. FAMILY HISTORY: Noncontributory. HOME MEDICATIONS: 1. Amlodipine 10 mg daily. 2. Aspirin 81 mg daily, which has been held. 3. Lipitor 20 mg daily. 4. Belladonna. 5. Hydrochlorothiazide 25 mg daily, held for a week. 6. Plavix 75 mg daily, held. 7. Vitamin D 2000 units q.h.s. 8. Nitroglycerin. 9. Lisinopril 40 mg b.i.d. 10. Vitamin C. 11. Metformin 1000 mg b.i.d. 12. Atorvastatin 20 mg q.h.s. 13. Synthroid 50 mcg daily. 14. Uloric 40 mg b.i.d. 15. Onglyza 5 mg q.h.s. 16. Metoprolol 100 mg daily. ALLERGIES: No known drug allergies. PHYSICAL EXAMINATION: VITAL SIGNS: Temperature afebrile. Blood pressure has ranged 174-227 over 120, heart rate in the 70s, respirations 12, 92% on 2 L. GENERAL: male lying in bed, in moderate distress during Roberts change , is upset. HEENT: PERRLA. EOMI. Oropharynx clear. CV: Regular rate and rhythm. No murmurs, gallops, or rubs. LUNGS: Clear to auscultation anteriorly. ABDOMEN: Soft, nontender, nondistended. : Roberts in place with sanguinous output. MUSCULOSKELETAL: 5/5 upper and lower extremity strength. NEUROLOGIC: 2 through 12 intact. PSYCH: Alert and oriented x3. Angry. Upset. LABORATORY DATA: [id number] glucose 146 and 175. ASSESSMENT AND PLAN: 1. Uncontrolled hypertension: has been off some of his anti-hypertensives and bladder pain contributing now. Did take his metoprolol today. We will resume home dose. I do not want to decrease blood pressure greater than MAP of 25%. Will repeat here once transferred to the PCU. Will monitor there on telemetry. Resume home BP meds. PRN hydral. 2. Diabetes: Sliding scale insulin while here. 3. Coronary artery disease: Continue statin and beta-david. Aspirin and Plavix are on hold with acute bleeding. Check an H and H in the morning. 4. Hyperlipidemia: Statin. 5. Diet: Regular. 6. Deep vein thrombosis prophylaxis: SCDs. Thank you for this consultation. We will follow along. Please call if any questions. /[id number]/MODL MTDD
[2017-06-14] MEDS: LEVOTHYROXINE 50 MCG TAB PO SCH (06:50)
--- NOTE | 2017-06-14 09:55 | ASMTCASEMG ---
Living Arrangements What is your living Answers: With Spouse arrangement? Who do you live with? Type Of Residence What kind of residence do Answers: House you live in? Discharge Plan Comments Coordination Status Comments Notes: Patient is a 72yo male who was admitted for surgery for recently detected bladder tumors that were preceded by recurrent episodes of gross hematuria starting in March 2017. No therapies have been ordered at this time. D/C needs TBD. CM will follow. Date Signed: 06/14/2017 09:55 AM Electronically Signed By:Leyda Domingo LCSW
[2017-06-14] MEDS: METOPROLOL SUCCINATE XR 100 MG TAB PO SCH (09:57)
[2017-06-14] MEDS: HYDROCHLOROTHIAZIDE 25 MG TAB PO SCH (09:58)
[2017-06-14] MEDS: LISINOPRIL 40 MG TAB PO SCH ×2 (09:58→22:02)
[2017-06-14] MEDS ORDERED: LIDOCAINE 2% JELLY 20 ML (UROJECT) ONE (11:15)
[2017-06-14] MEDS ORDERED: LR 1,000 ML IV ONE (11:23)
[2017-06-14] MEDS ORDERED: fentaNYL 100 MCG/2 ML INJ ONE (11:59)
[2017-06-14] MEDS ORDERED: PROPOFOL 200 MG/20 ML VIAL ONE ×2 (11:59)
[2017-06-14] MEDS ORDERED: PHENYLEPHRINE HCL 100 MCG/ML SYR ONE (12:15)
[2017-06-14] MEDS ORDERED: LIDOCAINE 2% 5 ML SDV ONE (12:15)
[2017-06-14] MEDS ORDERED: ONDANSETRON 4 MG/2 ML VIAL ONE (12:15)
[2017-06-14] MEDS ORDERED: epHEDrine SULFATE 10 MG/ML SYR ONE (12:15)
[2017-06-14] MEDS ORDERED: ALBUTEROL 3 ML DEYVIAL IH PRN (12:20)
[2017-06-14] MEDS ORDERED: INSULIN REGULAR HUMAN 100 UNIT/ML ONE (12:20)
[2017-06-14] MEDS ORDERED: NALOXONE HCL 0.4 MG/ML INJ IVP PRN (12:20)
[2017-06-14] MEDS ORDERED: LR 500 ML IV PRN (12:20)
[2017-06-14] MEDS ORDERED: fentaNYL 100 MCG/2 ML INJ IVP PRN (12:20)
[2017-06-14] MEDS ORDERED: DEXAMETHASONE 4 MG/ML VIAL IVP PRN (12:20)
--- NOTE | 2017-06-14 12:20 | PDANEPAE ---
ANE Past Medical History - Cardiovascular History Hx Hypertension: Yes Hx Arrhythmias: No Hx Chest Pain: No Hx Coronary Artery / Peripheral Vascular Disease: Yes Hx CHF / Valvular Disease: No Hx Palpitations: No Cardiovascular History Comment: cad stents x3: 2003 & 2008,05-08-17. hyperlipidemia. hypercholesterolemia - Pulmonary History Hx COPD: No Hx Asthma/Reactive Airway Disease: No Hx Recent Upper Respiratory Infection: No Hx Oxygen in Use at Home: No Hx Sleep Apnea: No Sleep Apnea Screening Result - Last Documented: Positive Pulmonary History Comment: toi triggers - Neurologic History Hx Cerebrovascular Accident: No Hx Seizures: No Hx Dementia: No Neurologic History Comment: Diplopia in 2010 (transient) with subsequent diagosis Left Cerebellar Lesion - Endocrine History Hx Diabetes: Yes Obesity: no Endocrine History Comment: type 2 - Renal History Hx Renal Disorders: Yes Renal History Comment: BPH. bladder tumors currently - Liver History Hx Hepatic Disorders: No - Neurological & Psychiatric Hx Hx Neurological and Psychiatric Disorders: No - Cancer History Hx Cancer: No Cancer History Comment: Right Ear Skin Mole Removed - Congenital Disorder History Hx Congenital Disorders: No - GI History Hx Gastrointestinal Disorders: No Gastrointestinal History Comment: HX POLYP - Other Health History Other Health History: gout. wears contacts - Chronic Pain History Chronic Pain: No (right hand- arthritic) - Surgical History Prior Surgeries: cardiac stent 05-08-17. 2012 Right Knee Replacement with Alireza. left knee replacement with Alireza 10/05/13 ANE Review of Systems Review of Systems: - Exercise capacity METS (RN): 4 METS ANE Patient History - Allergies Allergies/Adverse Reactions: No Known Allergies Allergy (Verified 05/29/17 11:39) - Home Medications Home Medications: Ascorbic Acid [Vitamin C 500 mg (*)] 1,000 mg PO DAILY 05/07/17 [Last Taken 03/17] Atorvastatin Calcium [Lipitor 20 mg (*)] 20 mg PO HS 05/07/17 [Last Taken ] Cholecalciferol Vit D3 [Vitamin D3 (*)] 2,000 units PO HS 05/07/17 [Last Taken 06/09/17] Febuxostat [ULORIC] 40 mg PO BID 05/07/17 [Last Taken 06/12/17] Hydrochlorothiazide [HCTZ (*)] 25 mg PO DAILY 05/07/17 [Last Taken 06/11/17] Levothyroxine [Synthroid 50 mcg (*)] 50 mcg PO DAILY06 05/07/17 [Last Taken ] Lisinopril [Zestril 40 mg (*)] 40 mg PO BID 05/07/17 [Last Taken 06/12/17] Metoprolol Succinate Xr [Toprol Xl 100 mg (*)] 100 mg PO DAILY 05/07/17 [Last Taken 06/12/17] Saxagliptin HCl [Onglyza] 5 mg PO HS 05/07/17 [Last Taken 06/12/17] metFORMIN HCL [Glucophage 1000 mg] 1,000 mg PO BIDMEAL 05/07/17 [Last Taken 06/16] amLODIPine BESYLATE [Norvasc 10 mg (*)] 10 mg PO DAILY 06/12/17 [Last Taken ] Aspirin [Aspirin 81mg (*)] 81 mg PO EVERY OTHER DAY 06/13/17 [Last Taken ] - NPO status NPO Since - Liquids (Date): 06/14/17 NPO Since - Liquids (Time): 00:00 NPO Since - Solids (Date): 06/12/17 NPO Since - Solids (Time): 22:00 - Smoking Hx Smoking Status: Former smoker - Family Anes Hx Family Hx Anesthesia Complications: None ANE Labs/Vital Signs - Labs Result Diagrams: 06/14/17 03:40 06/14/17 03:40 - Vital Signs Blood Pressure: 131/74 Heart Rate: 77 Respiratory Rate: 18 O2 Sat (%): 95 Height: 175.26 cm Weight: 77.111 kg ANE Physical Exam - Airway Neck exam: FROM Mallampati Score: Class 1 Mouth exam: normal dental/mouth exam - Pulmonary Pulmonary: no respiratory distress, no rales or rhonchi, reduced air movement - Cardiovascular Cardiovascular: regular rate and rhythym, no murmur, rub, or gallop - ASA Status ASA Status: III ANE Anesthesia Plan Anesthesia Plan: GA w LMA
[2017-06-14] MEDS ORDERED: GLUCAGON HCL 1 MG VIAL ONE (12:21)
[2017-06-14] MEDS ORDERED: ALBUMIN 5% 250 ML BOTTLE IV ONE (12:29)
--- NOTE | 2017-06-14 12:30 | SOAPPROG ---
SOAP Progress Note Assessment/Plan: Assessment: s/p TURBT yesterday - now w/ significant bladder clot and related intermittent retention. CT this AM confirms presence of significant remaining clot. I believe he was at higher risk for this due to the size of his tumors and extent of resection, in the setting of probable residual Plavix effect on coagulation. Situation and management options reviewed in detail w/ the pt. and his this AM. Plan: 1. Proceed w/ intraoperative cystoscopy and clot evacuation later this AM. 2. Continue w/ cautious gentle CBI in meantime, manual irrigation prn. 06/14/17 12:31 Subjective: Intermittent pain related to clot retention. Otherwise, he states he feels fine. No N/V. Objective: Vital Signs Temp Pulse Resp BP Pulse Ox 37.2 C 77 18 131/74 H 95 06/14/17 11:30 06/14/17 12:20 06/14/17 12:20 06/14/17 12:20 06/14/17 12:20 Laboratory Results 06/14/17 03:40 06/14/17 03:40 06/13/17 06/14/17 06/15/17 05:59 05:59 05:59 Intake Total 1226 Output Total 50 Balance 1176 Physical Exam - Physical Exam General Appearance: WD/WN, alert, no apparent distress Abdomen: distended (especially below the umbilicus; no peritoneal signs, no involuntary guarding.) Male Genitalia: other (urine pink tinged on low rate CBI) Extremities: non-tender, normal inspection Neuro/Psych: alert, normal mood/affect, oriented x 3 ICD10 Worksheet Patient Problems: Problems Problem Status Onset Arthritis of knee Acute Arthritis of knee, left Acute Chest pain Acute
[2017-06-14] MEDS ORDERED: SUGAMMADEX SODIUM 200 MG/2 ML VIAL IVP ONE (12:40)
[2017-06-14] MEDS ORDERED: ROCURONIUM 50 MG/5 ML VIAL ONE (12:40)
--- NOTE | 2017-06-14 13:13 | POSTOPPROG ---
Post Op Note Date of Operation: 06/14/17 Surgeon: Elias Aden (# [id number]) Anesthesia: GET(General Endotracheal) Pre-op Diagnosis: Clot urinary retention, s/p TURBT Post-op Diagnosis: Clot urinary retention, s/p TURBT Procedure: Cysto. w/ extensive clot evacuation, bladder fulguration Findings: Extensive bladder clot Inf/Abcess present in the surg proc area at time of surgery?: No EBL: Minimal Complications: None Specimen(s): None
[2017-06-14] MEDS: ASPIRIN 81 MG CHEWABLE TAB PO SCH (14:43)
--- NOTE | 2017-06-14 14:52 | HOSPPROG ---
Hospitalist Progress Note Assessment/Plan: Bladder mass s/p resection POD #1 - returned to OR with Dr. Aden today for washout of clots. -cont post-op care per urology service Hypertension - normotensive today, cont norvasc, hctz, lisinopril, metoprolol, PRN hydralazine Hyperlipidemia - cont statin Diabetes type 2 - bg's a bit elevated post-op, better this afternoon -cont metformin, SSI CAD - RCA stent placed 05/2017. ASA and Plavix held due to acute bleeding. Resume as soon as deemed safe by urology service. Full code DVT PPLX - SCD's, pharm deferred with hematuria Dispo - cont inpt Subjective: Pt feels ok. Pain decreased after returning to OR for washout of bladder clots. No fevers/chills. No CP or SOB. Objective: Vital Signs Temp Pulse Resp BP Pulse Ox 36.4 C 67 16 128/55 H 95 06/14/17 14:00 06/14/17 14:00 06/14/17 14:00 06/14/17 14:00 06/14/17 14:00 Laboratory Results 06/14/17 03:40 06/14/17 03:40 06/13/17 06/14/17 06/15/17 05:59 05:59 05:59 Intake Total 1226 400 Output Total 50 Balance 1176 400 - Physical Exam Constitutional: no apparent distress Eyes: PERRL Ears, Nose, Mouth, Throat: moist mucous membranes Cardiovascular: regular rate and rhythym Respiratory: no respiratory distress, clear to auscultation Gastrointestinal: normoactive bowel sounds, soft, non-tender abdomen Skin: warm Musculoskeletal: full muscle strength Neurologic: AAOx3 Psychiatric: interacting appropriately ICD10 Worksheet Patient Problems: Problems Problem Status Onset Arthritis of knee Acute Arthritis of knee, left Acute Chest pain Acute
[2017-06-14] MEDS: COLCHICINE 0.6 MG PO SCH (22:14)
--- NOTE | 2017-06-15 00:23 | GOP ---
[f rep st] OPERATIVE REPORT DATE OF OPERATION: 06/14/2017 SURGEON: Elias Aden MD ANESTHESIA: General endotracheal. PREOPERATIVE DIAGNOSIS: Bladder clot, urinary retention, status post transurethral bladder tumor res ection. POSTOPERATIVE DIAGNOSIS: Bladder clot, urinary retention, status post transurethral bladder tumor re section. PROCEDURE PERFORMED: 1. Cystourethroscopy with evacuation of multiple obstructing bladder blood clots. 2. Bladder fulguration. FINDINGS: Extensive amount of clot within the bladder. Clot adherent to dome of bladder making it i mpossible to fully visualize the area of yesterday's resection. SPECIMENS: None. ESTIMATED BLOOD LOSS: Minimal. INDICATIONS: This gentleman underwent transurethral bladder tumor resection yesterday. That was unc omplicated at that time. The patient developed significant gross hematuria with clot retention posto peratively. Pelvic CT scan obtained earlier today revealed a significant amount of remaining clot in his bladder. As a result, it was recommended that he undergo intraoperative management at this time . The indications for the procedures as well as potential risks and complications, were discussed wi th the patient preoperatively. He appeared to understand, his questions were answered, and he wished to proceed. Written informed surgical consent was thereafter obtained. DESCRIPTION OF PROCEDURE: The patient was brought to the operating room and administered general end otracheal anesthesia. He was carefully placed in the dorsal lithotomy position on the cystoscopic ta ble. The existing indwelling Roberts catheter was removed. The genital area was sterilely prepped wit h Betadine scrub and paint, then draped in usual sterile fashion. Cystoscopy was performed with a 30 -degree lens through a 25-[place] sheath. Anterior urethra revealed no abnormalities. Posterior uret hra revealed previously noted [id number] lateral lobe BPH with a small to medium sized intraves ical median lobe. Upon entering the bladder, there was a significant amount of clot that was encount ered which prevented visualization. The cystoscope was removed and the 28-[place] resectoscopic sheat h and obturator were carefully inserted into the bladder. I then used an [employer] evacuator to perform a gentle irrigation of the clot from the bladder. I tried to be as gentle as possible in order to no t stress the region of resected bladder and minimize the risk of bladder perforation from this region . I was ultimately able to remove close to what appeared to be 1 unit of clotted blood from the blad antonio. I then inserted the Boyd resectoscope with a button electrode through the 28-[place] sheath. Examination of the bladder at this point revealed some remaining adherent clot to the dome of the b ladder. I did not see any obvious evidence of bleeding. There was no obvious evidence of bladder pe rforation. I was not able to fully visualize the region of yesterday's resection due to the adherent clot. I carefully teased off some of the clot that appeared to be more loosely attached. However, I did not remove all of the adherent clot in fear that this would stimulate recurrent bleeding from t hose areas. As mentioned above, there was no active bleeding from anywhere in the bladder appreciate d at this time. I carefully irrigated the bladder multiple times with the RetailMLS evacuator through th e 28-[place] resectoscopic sheath. I eventually decided to terminate the procedure once I had careful ly extracted as much adherent clot from the dome of the bladder as I felt comfortable doing at this p oint. I then removed the instruments and inserted a 24-[place] 3-way silastic Roberts catheter. 20 cc of sterile fluid was placed in the balloon. The catheter was connected to continuous irrigation. Th e catheter irrigated manually and the return was light pink with a few small clots. The catheter was connected to bag drainage. He was then awakened, extubated, transferred to his bed, then taken to [facility] recovery room. He tolerated the procedure well overall. It should be mentioned that he was given Ancef 2 g intravenously near the beginning of the procedure for infection prophylaxis purposes. DISPOSITION: He was transferred to the recovery room in stable condition. He will be maintained on continuous bladder irrigation and carefully monitored. /[id number]/MODL
[2017-06-15 05:13] LABS: HEMATOCRIT 29.5 % (40.0-51.0); HEMOGLOBIN 10.6 g/dL (13.7-17.5); MEAN CELL HEMOGLOBIN 33.1 pg (27.9-34.1); MEAN CELL HEMOGLOBIN CONCENTR. 35.9 g/dL (32.4-36.7); MEAN CELL VOLUME 92.2 fL (81.5-99.8); RED BLOOD CELL COUNT 3.2 10^6/uL (4.40-6.38); RED CELL DISTRIBUTION WIDTH 13.2 % (11.5-15.2)
[2017-06-15] MEDS: LEVOTHYROXINE 50 MCG TAB PO SCH (05:29)
[2017-06-15 05:37] LABS: ANION GAP 12 mEq/L (8-16); CALCIUM 8.8 mg/dL (8.5-10.4); CARBON DIOXIDE 25 mEq/l (22-31); CHLORIDE 106 mEq/L (97-110); CREATININE 1.3 mg/dL (0.7-1.3); GLOMERULAR FILTRATION RATE 54; GLUCOSE 167 mg/dL (70-100); SODIUM 143 mEq/L (134-144)
[2017-06-15] MEDS: INSULIN REGULAR HUMAN 100 UNIT/ML SC SCH ×4 (07:45→20:57)
[2017-06-15] MEDS: HYDROCHLOROTHIAZIDE 25 MG TAB PO SCH (07:57)
[2017-06-15] MEDS: LISINOPRIL 40 MG TAB PO SCH ×2 (07:58→20:25)
[2017-06-15] MEDS: METOPROLOL SUCCINATE XR 100 MG TAB PO SCH (07:58)
[2017-06-15] MEDS: ASPIRIN 81 MG CHEWABLE TAB PO SCH (07:58)
[2017-06-15] MEDS: COLCHICINE 0.6 MG PO SCH ×2 (07:58→20:25)
[2017-06-15] MEDS: metFORMIN HCL 500 MG TAB PO SCH ×2 (07:58→18:14)
[2017-06-15] MEDS: Febuxostat [Uloric] 40 MG PO SCH ×2 (08:12→20:26)
--- NOTE | 2017-06-15 13:31 | SOAPPROG ---
SOAP Progress Note Assessment/Plan: Assessment: Pt denies pain and not using narcotic. He has been ambulating in the room. pos flatus but no BMs He request to go home today but want him to stay at least one more Plan: Pt should be able to transfer to floor. rec start asa 81mg since had a recent cardiac stent. He denies any CP or SOB at this time. Cont cbi 06/15/17 13:28 Objective: Vital Signs Temp Pulse Resp BP Pulse Ox 36.6 C 67 20 133/67 H 94 06/15/17 04:00 06/15/17 04:00 06/15/17 04:00 06/15/17 04:00 06/15/17 04:00 Laboratory Results 06/15/17 05:03 06/15/17 05:03 06/14/17 06/15/17 06/16/17 05:59 05:59 05:59 Intake Total 1226 2640 Output Total 50 1025 Balance 1176 1615 ICD10 Worksheet Patient Problems: Problems Problem Status Onset Arthritis of knee Acute Arthritis of knee, left Acute Chest pain Acute
--- NOTE | 2017-06-15 13:48 | ASMTCMCOM ---
CM Note CM Note Notes: Chart reviewed. Patient ambulating independently in room . Likely discharge to home tomorrow independently. No needs identified. Cm available should needs arise. Date Signed: 06/15/2017 01:47 PM Electronically Signed By:Lashawn Cox RN
--- NOTE | 2017-06-15 14:53 | HOSPPROG ---
Hospitalist Progress Note Assessment/Plan: Bladder mass s/p resection POD #2 - returned to OR with Dr. Aden yesterday for washout of clots. -cont CBI, post-op care per urology service Hypertension - was likely post-op pain, normotensive today. -cont norvasc, hctz, lisinopril, metoprolol, PRN hydralazine Hyperlipidemia - cont statin Diabetes type 2 - bg's a bit elevated post-op -check a1c (last was 6.5 in 12/2016) -cont metformin, SSI CAD - RCA stent placed 05/2017. Chest pain free. ASA resumed yesterday, plavix still held -resume plavix when cleared by urology with recent hematuria Full code DVT PPLX - SCD's, pharm deferred with hematuria Dispo - cont inpt, transfer to med surg Subjective: Pt feels better. No more painful clots. No CP or SOB. no fevers/ chills. appetite improved. Objective: Vital Signs Temp Pulse Resp BP Pulse Ox 36.6 C 67 20 133/67 H 94 06/15/17 04:00 06/15/17 04:00 06/15/17 04:00 06/15/17 04:00 06/15/17 04:00 Laboratory Results 06/15/17 05:03 06/15/17 05:03 06/14/17 06/15/17 06/16/17 05:59 05:59 05:59 Intake Total 1226 2640 Output Total 50 1025 Balance 1176 1615 - Physical Exam Constitutional: no apparent distress Eyes: PERRL Ears, Nose, Mouth, Throat: moist mucous membranes Cardiovascular: regular rate and rhythym Respiratory: no respiratory distress, clear to auscultation Gastrointestinal: normoactive bowel sounds, soft, non-tender abdomen Skin: warm Musculoskeletal: full muscle strength Neurologic: AAOx3 Psychiatric: interacting appropriately ICD10 Worksheet Patient Problems: Problems Problem Status Onset Arthritis of knee Acute Arthritis of knee, left Acute Chest pain Acute
[2017-06-15] MEDS ORDERED: BISACODYL 10 MG SUPP PR PRN (16:47)
[2017-06-15] MEDS: ATORVASTATIN CALCIUM 20 MG TAB PO SCH (20:25)
[2017-06-15] MEDS: DOCUSATE SODIUM 100 MG CAP PO SCH (20:25)
[2017-06-15] MEDS: Saxagliptin Hcl [Onglyza] 5 MG PO SCH (20:29)
[2017-06-16 04:11] LABS: HEMOGLOBIN 10.7 g/dL (13.7-17.5); MEAN CELL HEMOGLOBIN 32.9 pg (27.9-34.1); MEAN CELL HEMOGLOBIN CONCENTR. 35.7 g/dL (32.4-36.7); MEAN CELL VOLUME 92.3 fL (81.5-99.8); RED BLOOD CELL COUNT 3.25 10^6/uL (4.40-6.38); RED CELL DISTRIBUTION WIDTH 13.1 % (11.5-15.2)
[2017-06-16] MEDS: LEVOTHYROXINE 50 MCG TAB PO SCH (04:22)
[2017-06-16 04:43] LABS: ANION GAP 13 mEq/L (8-16); CALCIUM 8.9 mg/dL (8.5-10.4); CARBON DIOXIDE 25 mEq/l (22-31); CHLORIDE 103 mEq/L (97-110); CREATININE 1.2 mg/dL (0.7-1.3); GLOMERULAR FILTRATION RATE 59; GLUCOSE 190 mg/dL (70-100); POTASSIUM 3.8 mEq/L (3.5-5.2); SODIUM 141 mEq/L (134-144)
[2017-06-16 08:00] VITALS: BP 130/69; PULSE 63; RESP 18; TEMP 97.8; O2SAT 95
[2017-06-16] MEDS: DOCUSATE SODIUM 100 MG CAP PO SCH (08:59)
[2017-06-16] MEDS: metFORMIN HCL 500 MG TAB PO SCH (08:59)
[2017-06-16] MEDS: COLCHICINE 0.6 MG PO SCH (08:59)
[2017-06-16] MEDS: HYDROCHLOROTHIAZIDE 25 MG TAB PO SCH (08:59)
[2017-06-16] MEDS: LISINOPRIL 40 MG TAB PO SCH (08:59)
[2017-06-16] MEDS: INSULIN REGULAR HUMAN 100 UNIT/ML SC SCH (09:00)
[2017-06-16] MEDS: METOPROLOL SUCCINATE XR 100 MG TAB PO SCH (12:31)
--- NOTE | 2017-06-16 14:38 | ASDISCHSUM ---
Discharge Information Plan Status:Home with No Needs Medically Cleared to Leave:06/15/2017 Discharge Date:06/16/2017 12:42 PM CM D/C Disposition:Home, Routine, Self-Care ADT D/C Disposition:Home, Routine, Self-Care Projected Discharge Date:06/16/2017 12:00 AM Transportation at D/C:Family Discharge Delay Reason: Follow-Up Date:06/16/2017 12:00 AM Discharge Slot: Final Diagnosis:Bladder mass resection, HTN, HLD, DM-2 Placement Information Patient Contact Information Contact Name:MILLICENT Relationship: Address:[address] City:[place] Alternate Phone: [facility]/Zip Code:[place] [address] Email: Financial Information Financial Class:HMO and PPO Plans Primary Plan Desc:[facility] [place] Primary Plan Number:[id number] Secondary Plan Desc:MEDICARE INPATIENT Secondary Plan Number:[id number] Assessment Information [facility] Initial CM Assessment Living Arrangements What is your living Answers: With Spouse arrangement? Who do you live with? Type Of Residence What kind of residence do Answers: House you live in? Discharge Plan Comments Coordination Status Comments Notes: Patient is a 72yo male who was admitted for surgery for recently detected bladder tumors that were preceded by recurrent episodes of gross hematuria starting in March 2017. No therapies have been ordered at this time. D/C needs TBD. CM will follow. Date Signed: 06/14/2017 09:55 AM Electronically Signed By:Leyda Domingo LCSW [facility] CM Progress Note CM Note CM Note Notes: Chart reviewed. Patient ambulating independently in room . Likely discharge to home tomorrow independently. No needs identified. Cm available should needs arise. Date Signed: 06/15/2017 01:47 PM Electronically Signed By:Lashawn Cox RN Case Management Discharge Plan Note Case Management Discharge Discharge Order Complete? Answers: Yes Patient to Obtain Answers: via Family Medications Transportation Arranged Answers: Family/Friends Transport will Pick (Date 06/16/2017 12:00 AM & Time) Family Notified Answers: Yes Notes: to transport Discharge Comments Notes: Patient has been discharged home with . No other needs anticipated. Date Signed: 06/16/2017 02:37 PM Electronically Signed By:Sadaf Fountain LCSW Intervention Information
[2017-06-17 02:26] LABS: HEMOGLOBIN A1C 7.5 % (4.0-6.0)
[2017-06-17] MEDS ORDERED: ASPIRIN 81 MG CHEWABLE TAB PO SCH (09:00)
== END 2017-06-16 12:42 | disposition home or self-care (01) | DRG 670 ==
LOC: F3N 11:54 → F1N 15:18 → F2W 22:24 → F2N 06-14 00:09 → OBSVTOIN 06-14 16:45 → F1N 06-15 15:40
PROVIDERS: ADMIT Specialist; ATTEND Specialist
DX: C67.1 Malignant neoplasm of dome of bladder (principal); C67.4 Malignant neoplasm of posterior wall of bladder; R33.9 Retention of urine, unspecified; N32.89 Other specified disorders of bladder; I10 Essential (primary) hypertension; I25.10 Atherosclerotic heart disease of native coronary artery without angina pectoris; E11.9 Type 2 diabetes mellitus without complications; E78.5 Hyperlipidemia, unspecified; E03.9 Hypothyroidism, unspecified; Z95.5 Presence of coronary angioplasty implant and graft
CPT/HCPCS: G0378; J1100; J1610; J1815; J1956; J2370; J2405; J2704; J3010; J3490; P9041

== ENCOUNTER 2017-06-19 00:18 | Emergency (ER) | payer OTHER | END 2017-06-19 00:30 | disposition left against medical advice (07) | DX: Z53.21 Procedure and treatment not carried out due to patient leaving prior to being seen by health care provider (principal) ==

== ENCOUNTER 2017-07-10 18:54 | Inpatient (IN) | payer OTHER ==
[2017-07-10] MEDS ORDERED: LIDOCAINE 2% JELLY 20 ML (UROJECT) ONE ×3 (19:35→21:51)
--- NOTE | 2017-07-10 19:37 | EDPHY ---
H & P Stated Complaint: clogged catheter Time Seen by Provider: 07/10/17 18:56 HPI/ROS: CHIEF COMPLAINT: Hematuria and urinary retention HISTORY OF PRESENT ILLNESS: The patient presents to the ED with gross hematuria and urinary retention. The patient is status post bladder surgery for removal of 3 neoplasms the last month. The patient had been on Plavix up until 5 days ago which was discontinued secondary to epistaxis. The patient developed gross hematuria today and was evaluated at his urologist's office where a large 22 Welsh catheter was placed. The patient did undergo bladder irrigation at that point time. The patient presents to the ED this evening with complaints of bladder spasms, pain and gross hematuria. REVIEW OF SYSTEMS: A comprehensive 10 point review of systems is otherwise negative aside from elements mentioned in the history of present illness. Source: Patient Exam Limitations: No limitations - Personal History Current Tetanus Diphtheria and Acellular Pertussis (TDAP): Yes Tetanus Vaccine Date: 2010 - Medical/Surgical History Hx Asthma: No Hx Chronic Respiratory Disease: No Hx Diabetes: Yes Hx Cardiac Disease: Yes Hx Renal Disease: No Hx Cirrhosis: No Hx Alcoholism: No Hx HIV/AIDS: No Hx Splenectomy or Spleen Trauma: No Other PMH: josr knee replacement, diabetes,HTN, hypothyroid, gout, hyperlipidemia , SC (2000), 23 bladder tumers and possibly bladder CA - Social History Smoking Status: Former smoker - Physical Exam Exam: General Appearance: Alert, no distress Eyes: Pupils equal and round no pallor or injection ENT, Mouth: Mucous membranes moist Respiratory: There are no retractions, lungs are clear to auscultation Cardiovascular: Regular rate and rhythm Gastrointestinal: Suprapubic tenderness to palpation present Neurological: A&O, normal motor function, normal sensory exam, normal cranial nerves Skin: Warm and dry, no rashes Musculoskeletal: Neck is supple nontender Extremities: symmetrical, full range of motion Constitutional: Initial Vital Signs Temperature (C) 36.7 C 07/10/17 19:08 Heart Rate 64 07/10/17 19:08 Respiratory Rate 106 H 07/10/17 19:08 Blood Pressure 176/98 H 07/10/17 19:08 O2 Sat (%) 97 07/10/17 19:08 O2 Delivery Mode Room Air Allergies/Adverse Reactions: No Known Allergies Allergy (Verified 07/10/17 19:07) Home Medications: Medication Instructions Recorded Ascorbic Acid [Vitamin C 500 mg 1,000 mg PO DAILY 05/07/17 (*)] Atorvastatin Calcium [Lipitor 20 20 mg PO HS 05/07/17 mg (*)] Cholecalciferol Vit D3 [Vitamin D3 2,000 units PO HS 05/07/17 (*)] Hydrochlorothiazide [HCTZ (*)] 25 mg PO DAILY 05/07/17 Levothyroxine [Synthroid 50 mcg 50 mcg PO DAILY06 05/07/17 (*)] Lisinopril [Zestril 40 mg (*)] 40 mg PO BID 05/07/17 Metoprolol Succinate Xr [Toprol Xl 100 mg PO DAILY 05/07/17 100 mg (*)] Saxagliptin HCl [Onglyza] 5 mg PO HS 05/07/17 metFORMIN HCL [Glucophage 1000 mg] 1,000 mg PO BIDMEAL 05/07/17 Nitroglycerin [Nitrostat 0.4 mg 0.4 mg SL ONCE PRN #1 btl 05/09/17 (*)] amLODIPine BESYLATE [Norvasc 10 mg 10 mg PO DAILY 06/12/17 (*)] Aspirin [Aspirin 81mg (*)] 81 mg PO DAILY 06/13/17 Colchicine [Mitigare] 0.6 mg PO BID 06/14/17 Medical Decision Making ED Course/Re-evaluation: The patient presents the ED with gross hematuria and urinary retention. I did perform a bedside ultrasound which demonstrates hyperechoic material in the bladder. I did consult with Dr. Delacruz who recommended a three-way Roberts catheter be placed. The patient will be admitted to the hospital for continuous bladder irrigation. A large 3 way catheter was placed without complication by nursing staff. Continuous bladder irrigation has been initiated. I re-evaluated the patient at 8:30 p.m.. He is currently feeling better. Consultation was made with the hospitalist service. The patient will be admitted this evening by Dr. Medel. 9:00 p.m.: The patient was evaluated by Dr. Karlos Delacruz in the emergency department. He will be taking the patient to the operating room this evening for cystoscopy and clot evacuation. Differential Diagnosis: Differential diagnosis considered includes urinary retention, bladder clot, urinary tract infection - Data Points Medications Given: Discontinued Medications Morphine Sulfate (Morphine) 4 mg IVP ONCE ONE Stop: 07/10/17 20:53 Last Admin: 07/10/17 20:53 Dose: 4 mg Oxybutynin Chloride (Ditropan) 10 mg PO EDNOW ONE Stop: 07/10/17 20:55 Last Admin: 07/10/17 21:00 Dose: 10 mg Departure - Departure Disposition: [facility] Acute Clinical Impression: Urinary retention, Blood clot in bladder Hematuria Qualifiers: Hematuria type: gross Qualified Code(s): R31.0 - Gross hematuria Condition: Good
[2017-07-10 20:05] LABS: PLATELET COUNT 238 10^3/uL (150-400)
[2017-07-10] MEDS ORDERED: ACETAMINOPHEN 325 MG TAB PO PRN (20:44)
[2017-07-10] MEDS ORDERED: ONDANSETRON DISINTEGRATING 4 MG TAB PO PRN (20:44)
[2017-07-10] MEDS ORDERED: ONDANSETRON 4 MG/2 ML VIAL IVP PRN ×2 (20:44→21:51)
[2017-07-10] MEDS ORDERED: OXYBUTYNIN CHLORIDE 5 MG TAB PO ONE (20:54)
[2017-07-10 21:19] LABS: INR 1.15 (0.83-1.16); PROTIME(PATIENT) 14.9 SEC (12.0-15.0)
[2017-07-10] MEDS ORDERED: HYDROmorphONE/DILAUDID 1 MG/ML INJ IVP PRN (21:51)
[2017-07-10] MEDS ORDERED: fentaNYL 100 MCG/2 ML INJ IVP PRN (21:51)
[2017-07-10] MEDS ORDERED: HYDROCODONE/APAP 5/325 TAB PO PRN (21:51)
[2017-07-10] MEDS ORDERED: ACETAMINOPHEN 500 MG TAB PO PRN (21:51)
[2017-07-10] MEDS ORDERED: NALOXONE HCL 0.4 MG/ML INJ IVP PRN (21:51)
[2017-07-10] MEDS ORDERED: OXYCODONE/APAP 5/325 TAB PO PRN (21:51)
[2017-07-10] MEDS ORDERED: ALBUTEROL 3 ML DEYVIAL IH PRN (21:51)
--- NOTE | 2017-07-10 21:51 | PDANEPAE ---
ANE History of Present Illness Hematuria - ANE Past Medical History - Cardiovascular History Hx Hypertension: Yes Hx Arrhythmias: No Hx Chest Pain: No Hx Coronary Artery / Peripheral Vascular Disease: Yes Hx CHF / Valvular Disease: No Hx Palpitations: No Cardiovascular History Comment: cad stents x3: 2003 & 2008,05-08-17. hyperlipidemia. hypercholesterolemia - Pulmonary History Hx COPD: No Hx Asthma/Reactive Airway Disease: No Hx Recent Upper Respiratory Infection: No Hx Oxygen in Use at Home: No Hx Sleep Apnea: No Pulmonary History Comment: toi triggers - Neurologic History Hx Cerebrovascular Accident: No Hx Seizures: No Hx Dementia: No Neurologic History Comment: Diplopia in 2010 (transient) with subsequent diagosis Left Cerebellar Lesion - Endocrine History Hx Diabetes: Yes Endocrine History Comment: type 2 - Renal History Hx Renal Disorders: Yes Renal History Comment: BPH. bladder tumors currently - Liver History Hx Hepatic Disorders: No - Neurological & Psychiatric Hx Hx Neurological and Psychiatric Disorders: No - Cancer History Hx Cancer: No Cancer History Comment: Right Ear Skin Mole Removed - Congenital Disorder History Hx Congenital Disorders: No - GI History Hx Gastrointestinal Disorders: No Gastrointestinal History Comment: HX POLYP - Other Health History Other Health History: gout. wears contacts - Chronic Pain History Chronic Pain: No (right hand- arthritic) - Surgical History Prior Surgeries: cardiac stent 05-08-17. 2012 Right Knee Replacement with Alireza. left knee replacement with Alireza 10/05/13 ROBERTA Review of Systems Review of Systems: ANE Patient History - Allergies Allergies/Adverse Reactions: No Known Allergies Allergy (Verified 07/10/17 19:07) - Home Medications Home Medications: Ascorbic Acid [Vitamin C 500 mg (*)] 1,000 mg PO DAILY 05/07/17 [Last Taken 04/17] Atorvastatin Calcium [Lipitor 20 mg (*)] 20 mg PO HS 05/07/17 [Last Taken 17:30] Cholecalciferol Vit D3 [Vitamin D3 (*)] 2,000 units PO HS 05/07/17 [Last Taken 07/10/17 17:30] Hydrochlorothiazide [HCTZ (*)] 25 mg PO DAILY 05/07/17 [Last Taken 07/10/17] Levothyroxine [Synthroid 50 mcg (*)] 50 mcg PO DAILY06 05/07/17 [Last Taken 04/17] Lisinopril [Zestril 40 mg (*)] 40 mg PO BID 05/07/17 [Last Taken 07/10/17 17:30] Metoprolol Succinate Xr [Toprol Xl 100 mg (*)] 100 mg PO DAILY 05/07/17 [Last Taken 07/10/17] Saxagliptin HCl [Onglyza] 5 mg PO HS 05/07/17 [Last Taken 07/10/17 17:30] metFORMIN HCL [Glucophage 1000 mg] 1,000 mg PO BIDMEAL 05/07/17 [Last Taken 04/17 17:30] amLODIPine BESYLATE [Norvasc 10 mg (*)] 10 mg PO DAILY 06/12/17 [Last Taken 04/17] Aspirin [Aspirin 81mg (*)] 81 mg PO DAILY 06/13/17 [Last Taken 07/10/17 09:00] Colchicine [Mitigare] 0.6 mg PO BID 06/14/17 [Last Taken 07/10/17 17:30] - NPO status NPO Since - Liquids (Date): 07/10/17 NPO Since - Liquids (Time): 18:00 NPO Since - Solids (Date): 07/10/17 NPO Since - Solids (Time): 13:30 - Smoking Hx Smoking Status: Former smoker - Family Anes Hx Family Hx Anesthesia Complications: None ANE Labs/Vital Signs - Labs Result Diagrams: 07/10/17 20:00 07/10/17 20:00 - Vital Signs Blood Pressure: 143/75 Heart Rate: 63 Respiratory Rate: 16 O2 Sat (%): 93 Height: 177.8 cm Weight: 72.575 kg ANE Physical Exam - Airway Neck exam: FROM Mallampati Score: Class 2 Mouth exam: normal dental/mouth exam - Pulmonary Pulmonary: clear to auscultation - Cardiovascular Cardiovascular: regular rate and rhythym - ASA Status ASA Status: III, E ANE Anesthesia Plan Anesthesia Plan: GA w LMA
[2017-07-10] MEDS ORDERED: NITROGLYCERIN 0.4 MG BTL SL PRN (21:53)
[2017-07-10] MEDS ORDERED: PROPOFOL 200 MG/20 ML VIAL ONE (21:55)
[2017-07-10] MEDS ORDERED: LIDOCAINE 2% 5 ML SDV ONE (21:56)
[2017-07-10] MEDS ORDERED: fentaNYL 100 MCG/2 ML INJ ONE ×2 (22:12→22:43)
[2017-07-10] MEDS ORDERED: ceFAZolin 1 GM VIAL ONE ×2 (22:17)
[2017-07-10] MEDS ORDERED: ONDANSETRON 4 MG/2 ML VIAL ONE (22:49)
[2017-07-10] MEDS ORDERED: DEXAMETHASONE 4 MG/ML VIAL ONE (22:49)
--- NOTE | 2017-07-10 23:02 | POSTOPPROG ---
Post Op Note Date of Operation: 07/10/17 Surgeon: Karlos Delacruz Anesthesia: GET(General Endotracheal) Pre-op Diagnosis: clot retention , severe hematuria Post-op Diagnosis: same Indication: as above Procedure: cystoscopy clot evacuation, fulguration of bleeding vessels Findings: 2 units clot out Inf/Abcess present in the surg proc area at time of surgery?: No EBL: Minimal Complications: none Drains: Other (licea)
--- NOTE | 2017-07-10 23:02 | GHP ---
[f rep st] HISTORY AND PHYSICAL DATE OF ADMISSION: 07/10/2017 CHIEF COMPLAINT: Hematuria. HISTORY OF PRESENT ILLNESS: A 72-year-old male with history of dome of bladder cancer, status post r esection by Dr. Aden on 06/13/2017, with return to the ER on 06/14 for evacuation of clots. He was doing well since that hospitalization until today. Approximately 8 a.m., he developed kirill blood i n his urine, went over to [facility]. There, they placed a catheter and tried to irrigate. He w as then sent home approximately 1 p.m. and then developed severe bladder spasms and clots. He recently had a stent to the RCA 05/08/2017 and is followed by Dr. Gamino, who stopped this Plavi x last . Patient is still taking 81 mg aspirin. He reports recent nosebleeds. He is curren tly without pain in the emergency room upon my interview. No chest pain, shortness of breath, palpit ations. REVIEW OF SYSTEMS: I completed a 10-point review of systems, negative except as noted in HPI. PAST MEDICAL HISTORY: 1. Coronary artery disease with RCA stent, 05/08/2017. 2. Dome of bladder cancer. 3. Diabetes. 4. Hypertension. 5. Hypothyroidism. 6. Gout. 7. Hyperlipidemia. 8. MD in 2000. SURGERIES: Bilateral knees. Several bowel mass resections. FAMILY HISTORY: Noncontributory. SOCIAL HISTORY: [employer]. No illicits, tobacco, or alcohol. HOME MEDICATIONS: Metformin 1000 mg b.i.d., Norvasc 10 mg daily. Saxagliptin 5 mg p.o. q.h.s., nitr oglycerin as needed, Toprol 100 mg daily, Zestril 40 mg b.i.d., levothyroxine 50 mcg daily, hydrochlo rothiazide, 25 mg daily, colchicine 0.6 mg b.i.d., vitamin D3 2000 units q.h.s., atorvastatin 20 mg q .h.s., aspirin 81 daily, vitamin C. PHYSICAL EXAMINATION: VITAL SIGNS: Temperature 36.9, blood pressure 143/75, heart rate 60, respirat ions 16, 93% on room air. GENERAL: Lying in bed, in no acute distress. HEENT: PERRLA. EOMI. Dalila pharynx clear. CV: Regular rate and rhythm, +1 ankle edema. No murmurs, gallops, rubs. LUNGS: Cl ear anteriorly. GI: Distended, soft, nontender. Positive bowel sounds. : Catheter in place wit h gross hematuria. No palpation over suprapubic region. MUSCULOSKELETAL: 5/5 upper and lower extre mity strength. NEUROLOGIC: 2 through 12 intact. PSYCHIATRIC: Alert and oriented x3. LABORATORY DATA: WBCs 13, hemoglobin 13, hematocrit 39, platelets 238. Coags within normal. Sodium 143, potassium 4.3, chloride 103, carbon dioxide 21, BUN 20, creatinine 1.1, glucose 142, calcium 10 . HOSPITAL COURSE BY PROBLEM: 1. Gross hematuria: Patient with recent bladder mass resection. He has been off his Plavix since , but still taking a baby aspirin. He was evaluated by Dr. Ryan with Urology, who will take him to the OR [facility] for cystoscopy and clot evacuation. Would resume aspirin, given recent stents . Plavix has been held. 2. Coronary artery disease. Continue beta david, statin and aspirin. 3. Hypertension. Continue beta david, Norvasc, and diuretics. 4. Mild chronic kidney disease. Creatinine is at baseline, 1.1. May resume home medications. 5. History of gout. Colchicine. 6. Hyperlipidemia. Statin. 7. Diabetes. Will place on sliding-scale insulin here. 8. Leukocytosis. Suspect this is a stress reaction with hematuria. He denies any dysuria. Will re peat in the morning. 9. Diet. N.p.o. for procedure. 10. Deep venous thrombosis prophylaxis with SCDs. 11. Disposition. Patient warrants inpatient admission, given acute hematuria, warranting OR for annie t evacuation and likely bladder irrigation. /[id number]/MODL
--- NOTE | 2017-07-10 23:07 | POSTANESTH ---
Post Anesthetic Evaluation Cardiovascular Status: Normal, Stable Respiratory Status: Normal, Stable Level of Consciousness/Mental Status: Can Participate in Eval, Mildly Sleepy, Arousable Pain Control: Adequate, Prn Tx Ordered Nausea/Vomiting Control: Adequate, Prn Tx Ordered Complications Possibly Related to Anesthesia: None Noted
--- NOTE | 2017-07-11 03:51 | PDMN ---
Medical Necessity Medical necessity: Pt meets INPT criteria per MD and [facility] Urologic Surgery or Procedure GRG (acute hematuria s/p recent bladder mass resection, requiring emergent cystoscopy clot evacuation, fulgeration of bleeding vessels; currently taking baby ASA; hx CAD s/p RCA stent 05/17, DM, hypertension, CKD).
--- NOTE | 2017-07-11 05:27 | GCON ---
[f rep st] CONSULTATION CHIEF COMPLAINT: Hematuria, urinary retention, and clot retention. HISTORY OF PRESENT ILLNESS: Patient presents to the emergency room with gross hematuria, urinary ret ention. He is status post multiple bladder surgeries for bladder tumors and repeat OR for hematuria and clot retention in the past. He had a 22-Romanian catheter placed into the bladder. He presents to the emergency room tonight with clot retention and severe bladder spasms and pain. REVIEW OF SYSTEMS: Ten-point review of systems is otherwise negative. PAST MEDICAL HISTORY: Significant for bilateral knee replacement, diabetes, hypertension, hypothyroi d, gout, hyperlipidemia, an CO in 2000, recent stent placement 5 weeks ago, history of bladder cancer , recent. He stopped his Plavix 5 days ago. SOCIAL HISTORY: Smoking status, former smoker. PHYSICAL EXAMINATION: GENERAL APPEARANCE: Alert, in moderate distress. HEENT: Normocephalic, atra umatic. Eyes PERRLA. RESPIRATORY: No retractions. No pursed-lip breathing. No cyanosis. CARDIOV ASCULAR: No JVD. No lower extremity edema. GASTROINTESTINAL: There is suprapubic tenderness and a distended abdomen. NEUROLOGICAL: Alert and oriented x3, moving all 4 extremities. SKIN: Warm and dry. No rashes. MUSCULOSKELETAL: Neck is supple, nontender. EXTREMITIES: Good range of motion. GENITOURINARY: Three-way Roberts catheter with severe hematuria when stopping CBI. VITAL SIGNS: He is afebrile. Heart rate is 64. Respiratory rate is 12. Blood pressure 176/98. O2 saturation 97%. ASSESSMENT AND PLAN: Patient is going to the operating room for cystoscopy and clot evacuation and f ulguration of bleeding vessels. This is a severe problem, and I do suspect a small perforation in th e bladder. I will evaluate this upon cystoscopy. I have discussed the fact that I may need to open his abdomen if there is a perforation. He is in agreement to undergo a procedure. We will follow juma capellan closely. He is being admitted to the hospitalist service. I have spoken with Dr. Aden, ER team, the patient, and the patient's . 65-minute consultation in the emergency room. /[id number]/MODL
--- NOTE | 2017-07-11 06:27 | GOP ---
[f rep st] OPERATIVE REPORT DATE OF OPERATION: SURGEON: Karlos Delacruz MD PREOPERATIVE DIAGNOSIS: 1. Clot retention. 2. Severe hematuria. POSTOPERATIVE DIAGNOSIS: 1. Clot retention. 2. Severe hematuria. 3. Bleeding vessels at the bladder neck and prostate. PROCEDURE PERFORMED: 1. Cystoscopy. 2. Clot evacuation, complex. 3. Fulguration of bleeding vessels. 4. Roberts catheter placement with CBI. FINDINGS: 2 units of clot evacuated from the patient's bladder. SPECIMENS: None. INDICATIONS: Mr. Chaudhary came in with severe clot retention. He was brought to the operating room jan rgently for management. DESCRIPTION OF PROCEDURE: Patient was identified by name, medical record number, wrist band and brou ght to the operating room. Laid supine on the table, prepped and draped in the standard surgical fas hion. A 22-Sudanese 3-way Roberts catheter was removed. Cystoscopy was performed. There was a severe a mount of clot in the bladder. The entire bladder was filled with clot. 2 units of blood clot were e vacuated from the bladder. There were some active bleeders at the bladder neck. These were venous. These were cauterized extensively with a button. At the end of the procedure, there was no hematuri a. I emptied the bladder and filled the bladder several times to ensure this. A 22-Sudanese 3-way Fol ey catheter was placed to gentle traction. The patient was awakened from anesthesia, brought to the recovery room in stable condition. COMPLICATIONS: None. /[id number]/MODL
[2017-07-11] MEDS: LEVOTHYROXINE 50 MCG TAB PO SCH (06:45)
[2017-07-11] MEDS ORDERED: NON-FORMULARY NEW DRUG (Metformin Hcl [Glucophage 1000 Mg] 1,000 MG) PO SCH (08:00)
[2017-07-11 09:46] VITALS: RESP 18
[2017-07-11] MEDS: COLCHICINE 0.6 MG CAP/TAB PO SCH ×2 (10:09→20:00)
[2017-07-11] MEDS: ASPIRIN 81 MG CHEWABLE TAB PO SCH (10:10)
[2017-07-11] MEDS: metFORMIN HCL 500 MG TAB PO SCH ×2 (10:11→18:22)
[2017-07-11] MEDS: HYDROCHLOROTHIAZIDE 25 MG TAB PO SCH (10:11)
[2017-07-11] MEDS: LISINOPRIL 40 MG TAB PO SCH ×2 (10:11→20:00)
[2017-07-11] MEDS: ASCORBIC ACID 500 MG TAB PO SCH (10:12)
[2017-07-11] MEDS: METOPROLOL SUCCINATE XR 50 MG TAB PO SCH (10:12)
--- NOTE | 2017-07-11 11:26 | SOAPPROG ---
SOAP Progress Note Assessment/Plan: Assessment: POD 1 s/p recurrent bladder clot evacuation & prostatic fulguration - doing well today. Since he still has relative platelet incompetence (stopped Plavix about 1 week ago) I would like to err on the side of caution and continue CBI today. Situation explained to pt. and he is agreeable. Plan: 1. Continue CBI today. 2. Hopeful d/c tomorrow w/ Roberts. Subjective: No complaints. Objective: Vital Signs Temp Pulse Resp BP Pulse Ox 36.9 C 71 18 126/62 H 94 07/11/17 09:43 07/11/17 10:12 07/11/17 09:43 07/11/17 10:12 07/11/17 09:43 Laboratory Results 07/11/17 04:20 07/11/17 04:20 07/10/17 07/11/17 07/12/17 05:59 05:59 05:59 Intake Total 1040 Output Total 1999 Balance 1040 -2000 PT 14.9 SEC (12.0-15.0) 07/10/17 20:30 INR 1.15 (0.83-1.16) 07/10/17 20:30 Physical Exam - Physical Exam General Appearance: WD/WN, alert, no apparent distress Male Genitalia: other (urine minimally pink-tinged on min. rate CBI) Neuro/Psych: alert, normal mood/affect, oriented x 3 ICD10 Worksheet Patient Problems: Problems Problem Status Onset Blood clot in bladder Acute Hematuria Acute Urinary retention Acute Arthritis of knee Acute Arthritis of knee, left Acute Chest pain Acute
--- NOTE | 2017-07-11 12:32 | ASMTCMCOM ---
CM Note CM Note Notes: Reviewed chart. Pt to stay one more night for CBI and then will DC with no needs. Date Signed: 07/11/2017 12:31 PM Electronically Signed By:Shraddha Bowman LCSW
--- NOTE | 2017-07-11 17:05 | HOSPPROG ---
Hospitalist Progress Note Assessment/Plan: DIAGNOSES: -acute gross hematuria with the intracystic thrombus and bladder outlet obstruction with pain; now status post clot evacuation and fulguration on continuous irrigation via catheter -bladder cancer status post resections -diabetes mellitus type 2 -sugar high today likely due to him not getting his metformin last evening -history of coronary artery disease stable without any symptoms or signs of heart failure now -hypertension controlled PLANS: -I reviewed in detail with Dr. Rashard Aden the patient's condition and treatment plan at this time in detail -continue with his current continuous bladder irrigation and reassess in the morning -change his diet to a diabetic diet and resume his metformin at this time -follow blood pressures and manage as indicated The patient had several bleeding and fairly friable vessels noted on his cystoscopy yesterday and had only stop Plavix a week ago. He is at fairly high risk for further bleeding episodes and it is not felt safe to remove his irrigation catheter at this time. 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: Exam: alert oriented skin warm dry color ok resps not labored lungs clear BSs heart regular abd soft nondistended nontender, bowel sounds present Irrigation Roberts catheter in place receiving standard irrigant fluid with a slightly blood tinged Effluent, no signs of obstruction at present limbs warm, no edema iv site ok Laboratory data: Hemoglobin dropped slightly overnight The blood sugars mildly high chemistries otherwise unremarkable Objective: Vital Signs Temp Pulse Resp BP Pulse Ox 36.6 C 70 18 105/63 96 07/11/17 12:09 07/11/17 12:09 07/11/17 12:09 07/11/17 12:09 07/11/17 12:09 Laboratory Results 07/11/17 04:20 07/11/17 04:20 07/10/17 07/11/17 07/12/17 06:59 06:59 06:59 Intake Total 1040 Output Total 1999 Balance 1040 -2000 PT 14.9 SEC (12.0-15.0) 07/10/17 20:30 INR 1.15 (0.83-1.16) 07/10/17 20:30 ICD10 Worksheet Patient Problems: Problems Problem Status Onset Blood clot in bladder Acute Hematuria Acute Urinary retention Acute Arthritis of knee Acute Arthritis of knee, left Acute Chest pain Acute
[2017-07-11] MEDS: OXYBUTYNIN CHLORIDE 5 MG TAB PO PRN ×2 (17:10→23:28)
[2017-07-11] MEDS ORDERED: CHOLECALCIFEROL VIT D3 1,000 UNITS TAB PO SCH (21:00)
[2017-07-11] MEDS ORDERED: ATORVASTATIN CALCIUM 20 MG TAB PO SCH (21:00)
[2017-07-12 03:29] VITALS: O2SAT 96
[2017-07-12] MEDS: LEVOTHYROXINE 50 MCG TAB PO SCH (06:02)
[2017-07-12 08:26] VITALS: BP 124/75; PULSE 68; TEMP 98.4
[2017-07-12] MEDS: metFORMIN HCL 500 MG TAB PO SCH (08:26)
[2017-07-12] MEDS: ASPIRIN 81 MG CHEWABLE TAB PO SCH (08:26)
[2017-07-12] MEDS: ASCORBIC ACID 500 MG TAB PO SCH (08:26)
[2017-07-12] MEDS: HYDROCHLOROTHIAZIDE 25 MG TAB PO SCH (08:26)
[2017-07-12] MEDS: LISINOPRIL 40 MG TAB PO SCH (08:27)
[2017-07-12] MEDS: COLCHICINE 0.6 MG CAP/TAB PO SCH (08:27)
[2017-07-12] MEDS: METOPROLOL SUCCINATE XR 50 MG TAB PO SCH (08:27)
--- NOTE | 2017-07-12 14:50 | ASDISCHSUM ---
Discharge Information Plan Status: Medically Cleared to Leave: Discharge Date:07/12/2017 11:15 AM CM D/C Disposition: ADT D/C Disposition:Home, Routine, Self-Care Projected Discharge Date:07/12/2017 11:15 AM Transportation at D/C: Discharge Delay Reason: Follow-Up Date:07/12/2017 11:15 AM Discharge Slot: Final Diagnosis: Placement Information Patient Contact Information Contact Name:MILLICENT Relationship: Address:[address] City:[place] Alternate Phone: [facility]/Zip Code:[place] [address] Email: Financial Information Financial Class:HMO and PPO Plans Primary Plan Desc:[facility] CHOICE PLUS [place] Primary Plan Number:[id number] Secondary Plan Desc:MEDICARE INPATIENT Secondary Plan Number:[id number] Assessment Information BC CM Progress Note CM Note CM Note Notes: Reviewed chart. Pt to stay one more night for CBI and then will DC with no needs. Date Signed: 07/11/2017 12:31 PM Electronically Signed By:Shraddha Bowman LCSW Intervention Information Intervention Type:*Incorrect Registration Date of Service:07/10/2017 03:30 AM Patient Type:Observation Staff Member:LAUREN Calderon Kerry Hours: Discipline: Severity: Comment:
--- NOTE | 2017-07-12 17:34 | PDDCSUM ---
Discharge Summary Discharge Summary: DISCHARGE DIAGNOSES: -acute gross hematuria with the intracystic thrombus and bladder outlet obstruction with pain; now status post clot evacuation and fulguration on continuous irrigation via catheter -bladder cancer status post resections -diabetes mellitus type 2 -history of coronary artery disease stable without any symptoms or signs of heart failure now -hypertension controlled CONSULTANTS: Dr. Rashard TAVARES PROCEDURES: Cystoscopy with clot evacuation and fulguration of multiple bleeding vessels HOSPITAL COURSE SUMMARY: This patient has recent surgery for bladder cancer, had had difficulty with hematuria postoperative. Most recently he had removal of a Roberts catheter a several days later on the day of admission started having gross hematuria and developed bladder outlet obstruction. He had ongoing significant gross hematuria pain was taken to the operating room by Dr. douglas for where he had a clot evacuation and fulguration of multiple bleeding sites with multiple visible vessels. This was uncomplicated and he had a irrigation catheter placed with ongoing irrigation. The patient had no more difficulty voiding his bladder, did not pass any further clots, has not had any signs or symptoms of infection, and no other complications. At this time it is felt that he is stable for discharge to home but due to the fact the recently was on Plavix because of heart disease he should keep bed Roberts catheter in place for another few days. Therefore he got home with a Roberts catheter and leg bag in place and will follow up with Dr. Tavares in clinic in 3 days for removal of the catheter. The patient understands to watch for signs of infection, failure to void bladder, worsening bleeding, or any other complications and seek urgent attention. PENDING TEST RESULTS: None MEDICATION CHANGES: None FOLLOW-UP PLAN: With Dr. Ian Tavares next week in clinic Greater than 35 minutes bedside and care coordination time today
[2017-07-12] MEDS ORDERED: Saxagliptin Hcl [Onglyza] 5 MG PO SCH (21:00)
== END 2017-07-12 11:15 | disposition home or self-care (01) | DRG 909 ==
LOC: OBSVTOIN 19:39 → F1N 07-11 01:13
PROVIDERS: ADMIT Internal Medicine; ATTEND Internal Medicine
PROC: 3E1K88Z Irrigation of Genitourinary Tract using Irrigating Substance, Via Natural or Artificial Opening Endoscopic (ICD-10-PCS; principal; 2017-07-10 21:30)
PROC: 0TCB8ZZ Extirpation of Matter from Bladder, Via Natural or Artificial Opening Endoscopic (ICD-10-PCS; principal; 2017-07-10 21:30)
PROC: 30233R1 Transfusion of Nonautologous Platelets into Peripheral Vein, Percutaneous Approach (ICD-10-PCS; principal; 2017-07-10 21:30)
PROC: 0W3R8ZZ Control Bleeding in Genitourinary Tract, Via Natural or Artificial Opening Endoscopic (ICD-10-PCS; principal; 2017-07-10 21:30)
PROC: 0T9B80Z Drainage of Bladder with Drainage Device, Via Natural or Artificial Opening Endoscopic (ICD-10-PCS; principal; 2017-07-10 21:30)
DX: N99.820 Postprocedural hemorrhage of a genitourinary system organ or structure following a genitourinary system procedure (principal); N32.89 Other specified disorders of bladder; R31.0 Gross hematuria; R33.9 Retention of urine, unspecified; Z85.51 Personal history of malignant neoplasm of bladder; I25.10 Atherosclerotic heart disease of native coronary artery without angina pectoris; E11.9 Type 2 diabetes mellitus without complications; I10 Essential (primary) hypertension; E03.9 Hypothyroidism, unspecified; E78.5 Hyperlipidemia, unspecified; Z96.651 Presence of right artificial knee joint; Z96.652 Presence of left artificial knee joint; I25.2 Old myocardial infarction; Z95.5 Presence of coronary angioplasty implant and graft; Z79.82 Long term (current) use of aspirin; Z87.891 Personal history of nicotine dependence
CPT/HCPCS: J0690; J1100; J2405; J2704; J3010; P9035

== ENCOUNTER 2017-09-19 18:07 | Emergency (ER) | payer OTHER ==
[2017-09-19 18:24] VITALS: TEMP 98.2
--- NOTE | 2017-09-19 19:31 | EDPHY ---
H & P Stated Complaint: Wants licea checked to make sure it's draining;surg today Time Seen by Provider: 09/19/17 19:13 - Personal History Current Tetanus Diphtheria and Acellular Pertussis (TDAP): Yes Tetanus Vaccine Date: 2010 - Medical/Surgical History Hx Asthma: No Hx Chronic Respiratory Disease: No Hx Diabetes: Yes Hx Cardiac Disease: Yes Hx Renal Disease: No Hx Cirrhosis: No Hx Alcoholism: No Hx HIV/AIDS: No Hx Splenectomy or Spleen Trauma: No Other PMH: josr knee replacement, diabetes,HTN, hypothyroid, gout, hyperlipidemia , [place] (2000), 23 bladder tumors and possibly bladder CA, 3 tumors removed from bladder, cardiac stents - Social History Smoking Status: Former smoker Constitutional: Initial Vital Signs Temperature (C) 36.8 C 09/19/17 18:21 Heart Rate 63 09/19/17 18:21 Respiratory Rate 18 09/19/17 18:21 Blood Pressure 200/97 H 09/19/17 18:21 O2 Sat (%) 95 09/19/17 18:21 O2 Delivery Mode Room Air Allergies/Adverse Reactions: No Known Allergies Allergy (Verified 09/19/17 18:21) Home Medications: Medication Instructions Recorded Ascorbic Acid [Vitamin C 500 mg 1,000 mg PO DAILY 05/07/17 (*)] Atorvastatin Calcium [Lipitor 20 20 mg PO HS 05/07/17 mg (*)] Cholecalciferol Vit D3 [Vitamin D3 2,000 units PO HS 05/07/17 (*)] Hydrochlorothiazide [HCTZ (*)] 25 mg PO DAILY 05/07/17 Levothyroxine [Synthroid 50 mcg 50 mcg PO DAILY06 05/07/17 (*)] Lisinopril [Zestril 40 mg (*)] 40 mg PO BID 05/07/17 Metoprolol Succinate Xr [Toprol Xl 100 mg PO DAILY 05/07/17 100 mg (*)] Saxagliptin HCl [Onglyza] 5 mg PO HS 05/07/17 metFORMIN HCL [Glucophage 1000 mg] 1,000 mg PO BIDMEAL 05/07/17 Nitroglycerin [Nitrostat 0.4 mg 0.4 mg SL ONCE PRN #1 btl 05/09/17 (*)] amLODIPine BESYLATE [Norvasc 10 mg 10 mg PO DAILY 06/12/17 (*)] Aspirin [Aspirin 81mg (*)] 81 mg PO DAILY 06/13/17 Colchicine [Mitigare] 0.6 mg PO BID 06/14/17 Oxybutynin Chloride [Ditropan] 5 mg PO TID PRN #90 tab 07/12/17 Medical Decision Making ED Course/Re-evaluation: CHIEF COMPLAINT: Hematuria in Licea after bladder surgery. HISTORY OF PRESENT ILLNESS: The patient is a 72 y/o male with bladder cancer who had a bladder tumor resection today and is concerned about progressive hematuria following the surgery. He had his 4th surgery earlier today with Dr. Aden and was discharged about 3 hours ago with precautions to return if he had significant hematuria. At the time of his discharge his hematuria was "between solid blood and urine and blood" in color, but since then has turned "beat red" and he has passed at least one clot. He describes it as 3X worse than when he was discharged earlier today. Licea is still draining. No other acute complaints. REVIEW OF SYSTEMS: A 10 point review of systems was performed and is negative with the exception of the elements mentioned in the history of present illness. PHYSICAL EXAM: HR, BP, O2 Sat, RR. Temp noted General Appearance: Alert, well hydrated, appropriate, and non-toxic appearing. Head: Atraumatic without scalp tenderness or obvious injury Eyes: Pupils equal, round, reactive to light and accommodation, EOMI, no trauma , no injection. Nose: Atraumatic, no rhinorrhea, clear. Throat: Mucus membranes moist. Neck: Supple Respiratory: No retractions, no distress, no wheezes, and no accessory muscle use. Lungs are clear to auscultation bilaterally. Cardiovascular: Regular rate and rhythm, no murmurs, rubs, or gallops. Good capillary refill all extremities. Gastrointestinal: Abdomen is soft, non-tender, non-distended, no masses, no rebound, no guarding, no peritoneal signs. : Licea catheter in place with gross hematuria. Musculoskeletal: Normal active ROM of all extremities, atraumatic. Neurological: Alert, appropriate, and interactive. Nonfocal. Skin: No rashes, good turgor, no nodules on palpation. PAST MEDICAL HISTORY: CAD, dome of bladder cancer, diabetes, hypertension, hypothyroidism, gout, hyperlipidemia, [place] in 2000 PAST SURGICAL HISTORY: RCA stent 05/08/17, bilateral knee surgeries, several bowel mass resections SOCIAL HISTORY: [employer]. No tobacco. Surgeon: Dr. Mcallister. Urologist: Dr. Aden Prior medical records reviewed including admission 07/10/17 for hematuria. DIFFERENTIAL DIAGNOSIS: The differential diagnosis for the patient's hematuria included but was not limited to recent bladder surgery, bladder cancer, surgical complication, medication side effect, neurologic causes, outflow obstruction including prostatic hypertrophy, and infection. MEDICAL DECISION MAKING: This is a 72 y/o male with bladder cancer who underwent bladder surgery for tumor resection today and presents with worsening hematuria over the last 3 hours. He has gross hematuria in his Licea here. Plan to flush to ensure good flow and send home with leg bag if no complications. Licea flushed well. Patient requests a bladder scan to ensure it is emptying well prior to discharge. Departure - Departure Disposition: Home, Routine, Self-Care Clinical Impression: Hematuria Qualifiers: Hematuria type: gross Qualified Code(s): R31.0 - Gross hematuria Licea catheter problem Qualifiers: Encounter type: initial encounter Qualified Code(s): T83.9XXA - Unspecified complication of genitourinary prosthetic device, implant and graft, initial encounter Condition: Good Instructions: Licea Catheter Placement and Care (ED), Hematuria (ED) Additional Instructions: Follow up with Dr. Aden as planned. Return for worsening of condition. Referrals: Waylon Rucker MD [Primary Care Provider] - As per Instructions Elias Aden MD [Medical Doctor] - As per Instructions Report Scribed for: Bandar Castillo Report Scribed by: Mini Howell Date of Report: 09/19/17 Time of Report: 19:31
[2017-09-19 20:27] VITALS: BP 182/94; PULSE 68; O2SAT 96
[2017-09-19 20:29] VITALS: RESP 18
== END 2017-09-19 20:29 | disposition home or self-care (01) ==
PROC: 0T9B70Z Drainage of Bladder with Drainage Device, Via Natural or Artificial Opening (ICD-10-PCS; principal; 2017-09-19)
DX: R31.0 Gross hematuria (principal); I10 Essential (primary) hypertension; I25.2 Old myocardial infarction; E11.9 Type 2 diabetes mellitus without complications; Z79.82 Long term (current) use of aspirin; Z79.84 Long term (current) use of oral hypoglycemic drugs; Z95.5 Presence of coronary angioplasty implant and graft; Z87.891 Personal history of nicotine dependence

== ENCOUNTER 2017-10-05 21:55 | Emergency (ER) | payer OTHER ==
--- NOTE | 2017-10-05 22:51 | EDPHY ---
H & P Stated Complaint: c/o urinating blood clots, then kirill blood x1 day, bladder surg 2.5 wks ag Time Seen by Provider: 10/05/17 22:41 HPI/ROS: Chief Complaint: Hematuria HPI: 72-year-old male with a history of bladder cancer who status post resection on the 20 sec of last month. Patient has been having hematuria with initiation of urination for the last several days. He had his Roberts catheter removed on Saturday. He saw Dr. Aden on Saturday. Starting today patient has been passing only blood with clots per when he urinates. He has had this happen about 15 times. No pain or discomfort. He feels that his bladder is completely emptying. He called and spoke with his urologist, Dr. Aden who instructed to come to the emergency department to have any irrigating catheter placed. Denies any fevers or chills. No nausea or vomiting. No abdominal pain. No back pain. ROS: 10 point Review of Systems is negative except as noted in the HPI. PMH: Coronary artery disease status post stenting, bladder cancer, BPH Social History: No smoking, no alcohol, no recreational drug use Family History: non-contributory Physical Exam: Gen: Awake, Alert, No Distress HEENT: Nose: no rhinorrhea Eyes: PERRLA, EOMI Mouth: Moist mucosa Neck: Supple, no JVD Chest: nontender, lungs clear to auscultation Heart: S1, S2 normal, no murmur Abd: Soft, distended, nontender, no guarding Back: no CVA tenderness, no midline tenderness Ext: no edema, non-tender Skin: no rash Neuro: CN II-XII intact, Sensation grossly intact, Strength 5/5 in bilateral upper and lower extremities - Personal History Tetanus Vaccine Date: 2010 - Medical/Surgical History Hx Asthma: No Hx Chronic Respiratory Disease: No Hx Diabetes: Yes Hx Cardiac Disease: Yes Hx Renal Disease: No Hx Cirrhosis: No Hx Alcoholism: No Hx HIV/AIDS: No Hx Splenectomy or Spleen Trauma: No Other PMH: josr knee replacement, diabetes,HTN, hypothyroid, gout, hyperlipidemia , [place] (2000), 23 bladder tumors and bladder CA, 3 tumors removed from bladder, cardiac stents - Social History Smoking Status: Former smoker Constitutional: Initial Vital Signs Temperature (C) 36.6 C 10/05/17 22:00 Heart Rate 65 04/07/18 22:00 Respiratory Rate 16 10/05/17 22:00 Blood Pressure 194/88 H 10/05/17 22:00 O2 Sat (%) 94 10/05/17 22:00 O2 Delivery Mode Room Air Allergies/Adverse Reactions: No Known Allergies Allergy (Verified 10/05/17 22:08) Home Medications: Medication Instructions Recorded Ascorbic Acid [Vitamin C 500 mg 1,000 mg PO DAILY 05/07/17 (*)] Atorvastatin Calcium [Lipitor 20 20 mg PO HS 05/07/17 mg (*)] Cholecalciferol Vit D3 [Vitamin D3 2,000 units PO HS 05/07/17 (*)] Hydrochlorothiazide [HCTZ (*)] 25 mg PO DAILY 05/07/17 Levothyroxine [Synthroid 50 mcg 50 mcg PO DAILY06 05/07/17 (*)] Lisinopril [Zestril 40 mg (*)] 40 mg PO BID 05/07/17 Metoprolol Succinate Xr [Toprol Xl 100 mg PO DAILY 05/07/17 100 mg (*)] Saxagliptin HCl [Onglyza] 5 mg PO HS 05/07/17 metFORMIN HCL [Glucophage 1000 mg] 1,000 mg PO BIDMEAL 05/07/17 Nitroglycerin [Nitrostat 0.4 mg 0.4 mg SL ONCE PRN #1 btl 05/09/17 (*)] amLODIPine BESYLATE [Norvasc 10 mg 10 mg PO DAILY 06/12/17 (*)] Aspirin [Aspirin 81mg (*)] 81 mg PO DAILY 06/13/17 Colchicine [Mitigare] 0.6 mg PO BID 06/14/17 Medical Decision Making ED Course/Re-evaluation: Twenty-two [address] catheter placed. Patient irrigated with 3 L of fluid. Initially it was blood tinged but is been running clear since. I have discussed with Dr. Aden, his urologist. He would like the catheter left in place. Call his office on Saturday to arrange for catheter removal later in the week. Patient to continue holding his aspirin. Departure - Departure Disposition: Home, Routine, Self-Care Clinical Impression: Hematuria Condition: Good Instructions: Hematuria (ED), Roberts Catheter Placement and Care (ED) Additional Instructions: Follow up with Dr. Aden on Saturday. Return to the emergency department for increasing pain, fevers, chills, or any other concerns. Referrals: Waylon Rucker MD [Primary Care Provider] - As per Instructions Elias Aden MD [Medical Doctor] - As per Instructions
[2017-10-06 01:04] VITALS: BP 178/83
== END 2017-10-06 01:04 | disposition home or self-care (01) ==
PROC: 0T9B70Z Drainage of Bladder with Drainage Device, Via Natural or Artificial Opening (ICD-10-PCS; principal; 2017-10-05)
DX: R31.9 Hematuria, unspecified (principal); I25.10 Atherosclerotic heart disease of native coronary artery without angina pectoris; I10 Essential (primary) hypertension; E11.9 Type 2 diabetes mellitus without complications; I25.2 Old myocardial infarction; Z79.82 Long term (current) use of aspirin; Z79.84 Long term (current) use of oral hypoglycemic drugs; Z95.5 Presence of coronary angioplasty implant and graft; Z85.51 Personal history of malignant neoplasm of bladder; Z87.891 Personal history of nicotine dependence

== ENCOUNTER 2017-10-06 08:56 | Emergency (ER) | payer OTHER ==
[2017-10-06 09:02] VITALS: BP 163/107
--- NOTE | 2017-10-06 09:54 | EDPHY ---
H & P Time Seen by Provider: 10/06/17 09:29 HPI/ROS: Chief complaint. Catheter pain HPI. 72-year-old male presents emergency department with pain coming from catheter. Patient was seen last night in the emergency department for hematuria. He was passing clots. He has a history of bladder cancer. A 3 way catheter was placed and it was irrigated with 3 L of saline. This morning the catheter hurts especially around the head of his penis. Again he has a history of bladder cancer and hematuria previously. Urologist was consulted last night and would like the catheter left in place till he sees him in the office tomorrow morning. No fever. He has noticed a blood clot in the leg bag. ROS Constitutional. no fever/chills, no weakness Eyes. no problems with vision ENT. no sore throat, no nasal drainage Cardiovascular. no chest pain Respiratory. no shortness of breath, no cough Abdominal. no abdominal pain, no nausea/vomiting, no diarrhea . Catheter pain MS. no calf pain/swelling, no neck/back pain, no joint pain Skin. no rash Lymph. no swollen glands Neuro. no headache, no dizziness, no difficulty walking or with speech Past Medical/Surgical History: Past medical history is significant for knee replacement, diabetes, hypertension , hypothyroid, gout, dyslipidemia, [place], bladder cancer in tumors, cardiac stents Social History: , nonsmoker, no alcohol Smoking Status: Former smoker Physical Exam: General Appearance: Alert pleasant well-developed male mild distress vital signs are stable Eyes: Pupils equal and round no pallor or injection. ENT, Mouth: Mucous membranes are moist. Respiratory: There are no retractions, lungs are clear to auscultation. Cardiovascular: Regular rate and rhythm. Gastrointestinal: Abdomen is soft and nontender, no masses, bowel sounds normal. Large diameter 3 way Roberts catheter is in place. There is small blood clot in the leg bag. Neurological: Awake and alert, sensory and motor exams grossly normal. Skin: Warm and dry, no rashes. Musculoskeletal: Neck is supple nontender. Extremities symmetrical, full range of motion. Psychiatric: Patient is oriented X 3, there is no agitation. Constitutional: Initial Vital Signs Temperature (C) 36.6 C 10/06/17 09:00 Heart Rate 65 10/06/17 09:00 Respiratory Rate 18 10/06/17 09:00 Blood Pressure 163/107 H 10/06/17 09:00 O2 Sat (%) 94 10/06/17 09:00 O2 Delivery Mode Room Air Allergies/Adverse Reactions: No Known Allergies Allergy (Verified 10/06/17 08:59) Home Medications: Medication Instructions Recorded Ascorbic Acid [Vitamin C 500 mg 1,000 mg PO DAILY 05/07/17 (*)] Atorvastatin Calcium [Lipitor 20 20 mg PO HS 05/07/17 mg (*)] Cholecalciferol Vit D3 [Vitamin D3 2,000 units PO HS 05/07/17 (*)] Hydrochlorothiazide [HCTZ (*)] 25 mg PO DAILY 05/07/17 Levothyroxine [Synthroid 50 mcg 50 mcg PO DAILY06 05/07/17 (*)] Lisinopril [Zestril 40 mg (*)] 40 mg PO BID 05/07/17 Metoprolol Succinate Xr [Toprol Xl 100 mg PO DAILY 05/07/17 100 mg (*)] Saxagliptin HCl [Onglyza] 5 mg PO HS 05/07/17 metFORMIN HCL [Glucophage 1000 mg] 1,000 mg PO BIDMEAL 05/07/17 Nitroglycerin [Nitrostat 0.4 mg 0.4 mg SL ONCE PRN #1 btl 05/09/17 (*)] amLODIPine BESYLATE [Norvasc 10 mg 10 mg PO DAILY 06/12/17 (*)] Aspirin [Aspirin 81mg (*)] 81 mg PO DAILY 06/13/17 Colchicine [Mitigare] 0.6 mg PO BID 06/14/17 Medical Decision Making Procedures: Catheter irrigation ED Course/Re-evaluation: The catheter is irrigated without clots. History adjusted. Patient has lidocaine jelly applied to the where the catheter leaves the meatus. He is much more comfortable. He is comfortable now leaving the catheter in. Patient and I discussed treatment plan including criteria for return importance of follow-up and further evaluation. He expresses understanding and agreement Differential Diagnosis: Patient had significant hematuria and clots. A 3 way catheter was placed for irrigation of the bladder. However the catheter is fairly large diameter and patient was having pain at the urethral meatus. After adjustment and lidocaine jelly he is comfortable. The catheter is irrigated and there is no more blood clots. - Data Points Medications Given: Discontinued Medications Lidocaine (Lidocaine 2% Jelly) 2 shivani TP ONCE ONE Stop: 10/06/17 10:32 Last Admin: 10/06/17 10:33 Dose: 2 shivani Departure - Departure Disposition: Home, Routine, Self-Care Clinical Impression: Roberts catheter pain Condition: Good Instructions: Roberts Catheter Placement and Care (ED) Referrals: Waylon Rucker MD [Primary Care Provider] - As per Instructions
[2017-10-06] MEDS ORDERED: LIDOCAINE 2% JELLY 5 ML TUBE ONE (10:18)
[2017-10-06] MEDS ORDERED: LIDOCAINE 2% JELLY 5 ML TUBE TP ONE (10:31)
== END 2017-10-06 11:18 | disposition home or self-care (01) ==
DX: T83.84XA Pain due to genitourinary prosthetic devices, implants and grafts, initial encounter (principal); E11.9 Type 2 diabetes mellitus without complications; I10 Essential (primary) hypertension; I25.2 Old myocardial infarction; Z79.82 Long term (current) use of aspirin; Z79.84 Long term (current) use of oral hypoglycemic drugs; Z85.51 Personal history of malignant neoplasm of bladder; Z87.891 Personal history of nicotine dependence; Y82.8 Other medical devices associated with adverse incidents

== ENCOUNTER 2018-01-09 05:37 | Observation (INO) | payer OTHER ==
[2018-01-09] MEDS ORDERED: levOFLOXACIN 500 MG/DEXTROSE 100 ML IV ONE (06:11)
[2018-01-09] MEDS ORDERED: LR 1,000 ML IV ONE (06:12)
[2018-01-09 06:49] LABS: PLATELET COUNT 115 10^3/uL (150-400)
--- NOTE | 2018-01-09 07:06 | PDANEPAE ---
ANE Past Medical History - Cardiovascular History Hx Hypertension: Yes Hx Arrhythmias: No Hx Chest Pain: No Hx Coronary Artery / Peripheral Vascular Disease: Yes Hx CHF / Valvular Disease: No Hx Palpitations: No Cardiovascular History Comment: cad stents x3: 2003 & 2008,05-08-17. hyperlipidemia. hypercholesterolemia - Pulmonary History Hx COPD: No Hx Asthma/Reactive Airway Disease: No Hx Recent Upper Respiratory Infection: No Hx Oxygen in Use at Home: No Hx Sleep Apnea: No Sleep Apnea Screening Result - Last Documented: Positive Pulmonary History Comment: toi triggers - Neurologic History Hx Cerebrovascular Accident: No Hx Seizures: No Hx Dementia: No Neurologic History Comment: Diplopia in 2010 (transient) with subsequent diagosis Left Cerebellar Lesion - Endocrine History Hx Diabetes: Yes Endocrine History Comment: type 2 - Renal History Hx Renal Disorders: No Renal History Comment: BPH. bladder tumors currently - Liver History Hx Hepatic Disorders: No - Neurological & Psychiatric Hx Hx Neurological and Psychiatric Disorders: No - Cancer History Hx Cancer: No Cancer History Comment: Right Ear Skin Mole Removed - Congenital Disorder History Hx Congenital Disorders: No - GI History Hx Gastrointestinal Disorders: No Gastrointestinal History Comment: HX POLYP - Other Health History Other Health History: gout. wears contacts - Chronic Pain History Chronic Pain: Yes (right hand- arthritic) - Surgical History Prior Surgeries: cardiac stent 05-08-17. 2012 Right Knee Replacement with Alireza. left knee replacement with Alireza 10/05/13 ANE Review of Systems Review of Systems: - Exercise capacity METS (RN): 4 METS ANE Patient History - Allergies Allergies/Adverse Reactions: No Known Allergies Allergy (Verified 01/09/18 06:14) - Home Medications Home Medications: Ascorbic Acid [Vitamin C 500 mg (*)] 05/07/17 [Last Taken 01/08/18] Atorvastatin Calcium [Lipitor 20 mg (*)] 05/07/17 [Last Taken 01/08/18] Cholecalciferol Vit D3 [Vitamin D3 (*)] 05/07/17 [Last Taken 01/08/18] Hydrochlorothiazide [HCTZ (*)] 05/07/17 [Last Taken 01/08/18] Levothyroxine [Synthroid 50 mcg (*)] 05/07/17 [Last Taken 01/09/18] Lisinopril [Zestril 40 mg (*)] 05/07/17 [Last Taken 01/08/18] Metoprolol Succinate Xr [Toprol Xl 100 mg (*)] 05/07/17 [Last Taken 01/09/18] Saxagliptin HCl [Onglyza] 05/07/17 [Last Taken 01/08/18] metFORMIN HCL [Glucophage 1000 mg] 05/07/17 [Last Taken 01/07/18] amLODIPine BESYLATE [Norvasc 10 mg (*)] 06/12/17 [Last Taken 01/09/18] Colchicine [Mitigare] 06/14/17 [Last Taken 01/09/18] Dutasteride 01/08/18 [Last Taken 01/08/18] Nitroglycerin [Nitrostat 0.4 mg (*)] 01/08/18 [Last Taken 01/08/18] - NPO status NPO Since - Liquids (Date): 01/08/18 NPO Since - Liquids (Time): 19:00 NPO Since - Solids (Date): 01/08/18 NPO Since - Solids (Time): 18:00 - Smoking Hx Smoking Status: Former smoker - Family Anes Hx Family Hx Anesthesia Complications: None ANE Labs/Vital Signs - Labs Result Diagrams: 01/09/18 06:30 01/09/18 06:30 - Vital Signs Blood Pressure: 187/86 Heart Rate: 53 Respiratory Rate: 16 O2 Sat (%): 96 Height: 175.26 cm Weight: 77.111 kg ANE Physical Exam - Airway Neck exam: FROM Mallampati Score: Class 2 Mouth exam: normal dental/mouth exam - Pulmonary Pulmonary: no respiratory distress - Cardiovascular Cardiovascular: regular rate and rhythym - ASA Status ASA Status: III ANE Anesthesia Plan Anesthesia Plan: GA w LMA
[2018-01-09] MEDS ORDERED: fentaNYL 100 MCG/2 ML INJ ONE ×2 (07:23)
[2018-01-09] MEDS ORDERED: PROPOFOL 200 MG/20 ML VIAL ONE (07:25)
[2018-01-09] MEDS ORDERED: METOCLOPRAMIDE 10 MG/2 ML VIAL ONE (07:26)
[2018-01-09] MEDS ORDERED: ROCURONIUM 50 MG/5 ML VIAL ONE (07:26)
[2018-01-09] MEDS ORDERED: DEXAMETHASONE 4 MG/ML VIAL ONE ×2 (07:26→07:32)
[2018-01-09] MEDS ORDERED: LIDOCAINE 2% 100 MG/5 ML SYR ONE (07:26)
[2018-01-09] MEDS ORDERED: SUGAMMADEX SODIUM 200 MG/2 ML VIAL IVP ONE (08:02)
--- NOTE | 2018-01-09 08:37 | POSTOPPROG ---
Post Op Note Date of Operation: 01/09/18 Surgeon: Elias Aden (# [id number]) Anesthesia: GET(General Endotracheal) Pre-op Diagnosis: Bladder tumor, h/o bladder cancer Post-op Diagnosis: Bladder tumor, h/o bladder cancer Procedure: Lg. TURBT Findings: See op note Inf/Abcess present in the surg proc area at time of surgery?: No EBL: Minimal (< 10 cc) Complications: None Specimen(s): Bladder tumor Text Box - Additional Text Additional Text: Due to hematuria risk, will admit overnight for CBI
[2018-01-09] MEDS ORDERED: HYDROmorphONE/DILAUDID 1 MG/ML INJ IVP PRN (08:40)
[2018-01-09] MEDS ORDERED: ONDANSETRON 4 MG/2 ML VIAL IVP PRN ×2 (08:40→08:46)
[2018-01-09] MEDS ORDERED: OPIUM/BELLADONNA ALKALO SUPP PR PRN (08:40)
[2018-01-09] MEDS ORDERED: LIDOCAINE 2% JELLY 5 ML TUBE TP PRN (08:40)
[2018-01-09] MEDS ORDERED: PROMETHAZINE HCL 25 MG/ML INJ IVP PRN (08:40)
[2018-01-09] MEDS ORDERED: ZOLPIDEM TARTRATE 5 MG TAB PO PRN (08:40)
[2018-01-09] MEDS ORDERED: HYDROCODONE/APAP 5/325 TAB PO PRN (08:40)
[2018-01-09] MEDS ORDERED: D5W 1/2 NS 1,000 ML IV SCH (08:45)
[2018-01-09] MEDS ORDERED: ALBUTEROL 3 ML DEYVIAL IH PRN (08:46)
[2018-01-09] MEDS ORDERED: NALOXONE HCL 0.4 MG/ML INJ IVP PRN (08:46)
[2018-01-09] MEDS ORDERED: fentaNYL 100 MCG/2 ML INJ IVP PRN (08:46)
--- NOTE | 2018-01-09 08:48 | POSTANESTH ---
Post Anesthetic Evaluation Cardiovascular Status: Similar to Pre-Op Cond Respiratory Status: Similar to Pre-op Cond. Level of Consciousness/Mental Status: Mildly Sleepy, Arousable Pain Control: Adequate, Prn Tx Ordered Nausea/Vomiting Control: Adequate, Prn Tx Ordered Complications Possibly Related to Anesthesia: None Noted
--- NOTE | 2018-01-09 09:10 | GOP ---
[f rep st] OPERATIVE REPORT DATE OF OPERATION: 01/09/2018 SURGEON: Elias Aden MD ANESTHESIA: General endotracheal. PREOPERATIVE DIAGNOSIS: 1. Recurrent bladder tumors. 2. History of bladder cancer. POSTOPERATIVE DIAGNOSIS: 1. Greater than 5 cm collective volume of bladder tumor. 2. History of bladder cancer. PROCEDURE PERFORMED: Large transurethral bladder tumor resection. FINDINGS: Multiple papillary bladder tumors. SPECIMENS: Bladder tumor. ESTIMATED BLOOD LOSS: Minimal. INDICATIONS: This gentleman underwent surveillance cystoscopy earlier this week and was found to have recurrent bladder tumors worrisome for recurrent cancer. He presents for operative management at this time. The indications for the procedures as well as potential risks and complications were discussed with the patient preoperatively. He appeared to understand, his questions were answered, and he wished to proceed. Written informed surgical consent was thereafter obtained. DESCRIPTION OF PROCEDURE: The patient was brought to the operating room and administered general endotracheal anesthesia. He was carefully placed in the dorsal lithotomy position on the cystoscopic table. The genital area was sterilely prepped with Betadine scrub and paint then draped in usual sterile fashion. Cystoscopy was performed with 30-degree and 70-degree lenses through a 22-Mozambican sheath. Before inserting the cystoscope, the anterior urethra did require dilation with Sergo sounds due to mild stricturing at the fossa navicularis and this was accomplished unremarkably. The anterior urethra was unremarkable. Posterior urethra revealed moderate circumferential BPH with a small intravesical median lobe, unchanged from prior cystoscopic examinations. Examination of the bladder revealed numerous papillary tumors that were located predominantly along the dome, anterior wall, and right and left anterolateral norris. None of these tumors appeared frankly invasive. They were all papillary in nature. Ureteral orifices were normal in regards to shape and position along the trigone. I then inserted the [employer] resectoscope with a standard resecting loop and a 26-Mozambican sheath. Using normal saline continuous flow, I used a resecting loop to systematically remove the tumors carefully. After removing all the tumors, a button electrode was used to fulgurate the base of the resected tumors as well as a surrounding rim of normal urothelium. Any remaining areas of even questionable mucosal erythema were fulgurated using the button electrode. I also used narrow band imaging in an effort to visualize any other abnormal areas and none were seen. At the conclusion of the procedure, the tumors were removed from the bladder using an Ellik evacuator. The bladder was hemostatic and no gross perforation of the bladder had ensued as a result of the operative process. The instruments were removed and a 20-Mozambican 3-way Roberts catheter inserted with approximately 15 cc of sterile water placed in the balloon. The catheter irrigated manually without difficulty and the return was clear. The instruments were removed and continuous irrigation was initiated. The catheter was connected to bag drainage. The patient was awakened, extubated, transferred to his bed, then taken back to the recovery room. He tolerated the procedure well overall. COMPLICATIONS: None. DISPOSITION: He was transferred to the recovery room in stable condition. Due to his prior history of postoperative gross hematuria, primarily resulting from BPH and prior use of anticoagulants, I will admit the patient overnight for continuous irrigation as a precaution. /[id number]/MODL MTDD
--- NOTE | 2018-01-09 14:39 | ASMTCMCOM ---
CM Note CM Note Notes: Chart reviewed. Patient s/p bladder tumor resection. Per physician note he is admitted for overnight bladder irrigation. Likely to dc independently. CM to follow. Plan: TBD Date Signed: 01/09/2018 02:39 PM Electronically Signed By:Lashawn Cox RN
[2018-01-09] MEDS: Saxagliptin Hcl [Onglyza] 5 MG PO SCH (22:15)
[2018-01-09] MEDS: METOPROLOL SUCCINATE XR 100 MG TAB PO SCH (22:18)
[2018-01-09] MEDS: LISINOPRIL 40 MG TAB PO SCH (22:18)
[2018-01-09] MEDS: metFORMIN HCL 500 MG TAB PO SCH (22:19)
[2018-01-09] MEDS ORDERED: NITROGLYCERIN 0.4 MG BTL SL PRN (23:09)
[2018-01-10] MEDS: HYDROCHLOROTHIAZIDE 25 MG TAB PO SCH ×2 (00:46→08:22)
[2018-01-10] MEDS: amLODIPine BESYLATE 5 MG TAB PO SCH ×2 (00:46→08:22)
[2018-01-10] MEDS ORDERED: LEVOTHYROXINE 50 MCG TAB PO SCH (06:00)
[2018-01-10 08:10] VITALS: BP 174/83
--- NOTE | 2018-01-10 08:20 | SOAPPROG ---
SOAP Progress Note Assessment/Plan: Assessment: POD 1 s/p TURBT - doing well. Plan: Discharge home w/ Alejandra, pt. to remove on Saturday. Subjective: No complaints. Objective: Vital Signs Temp Pulse Resp BP Pulse Ox 36.6 C 83 16 174/83 H 95 01/10/18 08:00 01/10/18 08:00 01/10/18 08:00 01/10/18 08:00 01/10/18 08:00 Laboratory Results 01/09/18 06:30 01/09/18 06:30 01/09/18 01/10/18 01/11/18 05:59 05:59 05:59 Intake Total 1250 1386 Output Total 1776 100 Balance -526 1286 Physical Exam - Physical Exam General Appearance: WD/WN, alert, no apparent distress Male Genitalia: other (urine clear w/in Roberts off CBI) Skin: normal color Extremities: normal inspection Neuro/Psych: alert, normal mood/affect, oriented x 3 ICD10 Worksheet Patient Problems: Problems Problem Status Onset Arthritis of knee Acute Arthritis of knee, left Acute Blood clot in bladder Acute Chest pain Acute Urinary retention Acute
[2018-01-10] MEDS: METOPROLOL SUCCINATE XR 100 MG TAB PO SCH (08:21)
[2018-01-10] MEDS: metFORMIN HCL 500 MG TAB PO SCH (08:21)
[2018-01-10] MEDS: LISINOPRIL 40 MG TAB PO SCH (08:22)
[2018-01-10] MEDS: Saxagliptin Hcl [Onglyza] 5 MG PO SCH (08:23)
--- NOTE | 2018-01-10 08:50 | ASDISCHSUM ---
Discharge Information Plan Status:Home with No Needs Medically Cleared to Leave:01/10/2018 Discharge Date:01/10/2018 CM D/C Disposition:Home, Routine, Self-Care ADT D/C Disposition:Home, Routine, Self-Care Projected Discharge Date:01/10/2018 Transportation at D/C:Family Discharge Delay Reason: Follow-Up Date:01/10/2018 Discharge Slot: Final Diagnosis: Placement Information Patient Contact Information Contact Name:MILLICENT Relationship: Address:[address] City:[place] Alternate Phone: State/Zip Code:[place] [address] Email: Financial Information Financial Class:Medicare Primary Plan Desc:MEDICARE OUTPATIENT Primary Plan Number:[id number] Secondary Plan Desc:[facility] Secondary Plan Number:[id number] Assessment Information [facility] CM Progress Note CM Note CM Note Notes: Chart reviewed. Patient s/p bladder tumor resection. Per physician note he is admitted for overnight bladder irrigation. Likely to dc independently. CM to follow. Plan: TBD Date Signed: 01/09/2018 02:39 PM Electronically Signed By:Lashawn Cox RN Intervention Information
--- NOTE | 2018-01-10 08:50 | ASMTLACE ---
LACE Length of stay for Answers: 1 day current admission Comorbidities - select Answers: Any tumor (including all that apply lymphoma or leukemia) Score: 3 Date Signed: 01/10/2018 08:49 AM Electronically Signed By:Lashawn Cox RN
[2018-01-10] MEDS ORDERED: DUTASTERIDE 0.5 MG CAP PO SCH (09:00)
[2018-01-10] MEDS ORDERED: COLCHICINE 0.6 MG CAP/TAB PO SCH (09:00)
[2018-01-10] MEDS ORDERED: ATORVASTATIN CALCIUM 20 MG TAB PO SCH (21:00)
[2018-01-10] MEDS ORDERED: CHOLECALCIFEROL VIT D3 2,000 UNITS TAB/CAP PO SCH (21:00)
== END 2018-01-10 10:29 | disposition home or self-care (01) ==
LOC: F1N 05:37
PROVIDERS: ADMIT Specialist; ATTEND Specialist
DX: C79.11 Secondary malignant neoplasm of bladder (principal); Z85.51 Personal history of malignant neoplasm of bladder; E11.9 Type 2 diabetes mellitus without complications; I25.2 Old myocardial infarction; E03.9 Hypothyroidism, unspecified; E78.00 Pure hypercholesterolemia, unspecified; E78.5 Hyperlipidemia, unspecified; Z96.653 Presence of artificial knee joint, bilateral; Z95.5 Presence of coronary angioplasty implant and graft; Z87.891 Personal history of nicotine dependence
CPT/HCPCS: 52240; J1100; J1956; J2001; J2704; J2765; J3010

== ENCOUNTER 2018-07-01 12:09 | Inpatient (IN) | payer OTHER ==
--- NOTE | 2018-07-01 12:16 | EDPHY ---
HPI/HX/ROS/PE/MDM Narrative: CHIEF COMPLAINT: Chest pain HPI: The patient is a 73 y/o male with a history of and LAD stent, ME, and bladder cancer arriving via private vehicle complaining of worsening chest pain onset at 11:55, 20 minutes ago. This chest pain developed two hours after he stopped shoveling snow from his driveway. After the pain developed he called his dish machine operator, Dr. Gamino, who advised the patient to present to the emergency department. Currently he is having a 5/10 pressure in his chest that is radiating across his chest. He did take one nitroglycerin prior to arrival, but had no change in symptoms. He denies taking aspirin or Plavix regularly. He denies having a recent stress test performed. No fever, cough, headache, shortness of breath, abdominal pain, urinary or bowel complaints, numbness, paresthesias. REVIEW OF SYSTEMS: Aside from elements discussed in the HPI, a comprehensive 10-point review of systems was reviewed and is negative. 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 ENT: Eyes are normal to inspection. ENT inspection normal. Neck: Normal inspection. Full range of motion. Respiratory: No respiratory distress. Breath sounds normal bilaterally. Cardiovascular: Regular rate and rhythm. Strong peripheral pulses. Normal cap refill. Abdomen: The abdomen is nontender to palpation. There are no peritoneal signs. There are normal bowel sounds. Back: Normal to inspection. No tenderness to palpation. Skin: Normal color. No rash. Warm and dry. Extremities: Normal appearance. Full range of motion. Neuro: Oriented x3. Normal motor function. Normal sensory function. ED Course: 1216: I met patient upon his arrival. 1217: EKG was ordered and interpreted by myself as a STEMI. Please see bead Button system for official reading. 1218: Cardiac Alert called by myself as patient is having a STEMI per his EKG. 1220: I consulted with Dr. Aguilar, cardiac interventionalist, regarding this patient. 600 mg PO Plavix ordered. 1223: Reassessed patient. Dr. Johnson, dish machine operator, is at bedside. 1225: I consulted with Dr. Gamino, dish machine operator, regarding this patient. Dr. Gamino would like to perform the catheterization. 1226: I consulted with Dr. Aguilar, he is comfortable with Dr. Gamino taking over care of this patient. Patient will be sent to the freezer laboratory technician. 1231: Patient does not want to take the full dose of Plavix as he has a history of a bleeding bladder. Only 300mg PO Plavix were given to the patient. Critical care time spent by me, Dr. Cifuentes, exclusively with this patient was 60 minutes, exclusive of PA time and exclusive of procedures. The organ system at risk was cardiovascular and I gave Plavix and emergently transferred the patient to the freezer laboratory technician to prevent worsening of the patients condition. - Data Points Imaging: I viewed and interpreted images myself Laboratory Results: 07/01/18 12:22 POC Troponin I 0.03 ng/mL ng/mL (0.00-0.08) Medications Given: Morphine Sulfate (Morphine) 1 mg IVP Q1HR PRN PRN Reason: Pain, Severe Unable to Take PO Stop: 07/11/18 12:59 Last Admin: 07/01/18 13:02 Dose: 1 mg Discontinued Medications Clopidogrel Bisulfate (Plavix) 600 mg PO EDNOW ONE Stop: 07/01/18 12:22 Last Admin: 07/01/18 12:25 Dose: 300 mg Point of Care Test Results: Chemistry 07/01/18 12:22 POC Troponin I 0.03 ng/mL ng/mL (0.00-0.08) General Time Seen by Provider: 07/01/18 12:13 Initial Vital Signs: Initial Vital Signs Temperature (C) 36.5 C 07/01/18 12:10 Heart Rate 57 L 07/01/18 12:10 Respiratory Rate 16 07/01/18 12:10 Blood Pressure 155/88 H 07/01/18 12:10 O2 Sat (%) 98 07/01/18 12:10 O2 Delivery Mode Room Air O2 (L/minute) 2 Allergies/Adverse Reactions: No Known Allergies Allergy (Verified 07/01/18 12:48) Home Medications: Medication Instructions Recorded Ascorbic Acid [Vitamin C 500 mg 500 mg PO HS 05/07/17 (*)] Atorvastatin Calcium [Lipitor 20 20 mg PO HS 05/07/17 mg (*)] Levothyroxine [Synthroid 50 mcg 50 mcg PO DAILY06 05/07/17 (*)] Lisinopril [Zestril 40 mg (*)] 40 mg PO BID 05/07/17 Metoprolol Succinate Xr [Toprol Xl 100 mg PO DAILY 05/07/17 100 mg (*)] Saxagliptin HCl [Onglyza] 5 mg PO DAILY 05/07/17 Colchicine [Mitigare] 0.6 mg PO DAILY 06/14/17 Dutasteride [Avodart 0.5 MG (*)] 0.5 mg PO DAILY 01/08/18 Cholecalciferol Vit D3 [Vitamin D3 2,000 units PO HS 01/09/18 2000 units tab (OTC)] amLODIPine BESYLATE [Norvasc 5 mg 5 mg PO DAILY 01/09/18 (*)] Hydrochlorothiazide [HCTZ (*)] 25 mg PO DAILY tab 01/10/18 Aspirin [Aspirin 81mg (*)] 81 mg PO DAILY tab.chew 07/02/18 Clopidogrel Bisulfate [Plavix (*)] 75 mg PO DAILY #90 tab 07/02/18 Nitroglycerin [Nitrostat 0.4 mg 0.4 mg SL Q5M PRN #30 btl 07/02/18 (*)] Departure - Departure Disposition: To OP Cath/Surgery Clinical Impression: STEMI (ST elevation myocardial infarction) Qualifiers: Involved coronary artery: unspecified coronary artery Qualified Code(s): I21.3 - ST elevation (STEMI) myocardial infarction of unspecified site Condition: Good Report Scribed for: Isak Cifuentes Report Scribed by: Ciara Alvarez Date of Report: 07/01/18 Time of Report: 12:16 Physician Review and Approval Statement: Portions of this note were transcribed by an ED scribe. I personally performed the history, physical exam, and medical decision making; and confirm the accuracy of the information in the transcribed note.
[2018-07-01] MEDS ORDERED: CLOPIDOGREL BISULFATE 75 MG TAB PO ONE (12:21)
--- NOTE | 2018-07-01 12:45 | PDCONSULT ---
Soil Tester Note: CC: Chest pain HPI: Patient is a 73 y/o male with history of CAD s/p multiple stent over many years (last was to the mid LAD), with DM (A1C of 7.1% in the Fall of 2018), HTN, HLP, and bladder cancer, who presents to [facility] ER via private transport with complaints of chest pains. Location is "across the chest". Severity of 5/10. Patient is very stoic, and getting much history/complaints from the patient is difficult. was at bedside with the patient. Symptoms were noted after the patient shoveled his driveway. Similar symptoms were noted in the past with prior cardiac events. Patient did take a home nitro sublingually, but this did not do much for the patient (and the reported that the medications were "old"). At present, the patient is sitting up in bed, and uncomfortable. No nausea reported. No PND or orthopnea. From 's report, the patient has not been feeling too well for some time. Outpatient notes from PCP were reviewed (05-26-18). Uncertain when patient was last seen by cardiology. Patient reported that compliance with prescription medications has been good. Remainder of the 12 point review of systems was unremarkable PMHx: (1) CAD s/p PCI to several coronary arteries. Per patient, last stent was to the mild LAD. Not on ASA or Plavix given issues with hematuria stemming from bladder cancer (2) HTN (3) HLP (4) DM (5) Bladder cancer (6) Hypothyroidism PSHx: (1) bladder cancer (2) PCIs SHx: No tobacco, illicits, or alcohol abuse NKDA Medications (1) amlodipine (2) HCTZ (3) Lipitor (4) Metformin (5) Toprol XL (6) Synthroid (7) Dutasteride (8) Mitigare (9) Onglyza Vitals (as below) GEN: awake and alert in mild distress with ongoing chest discomfort HEENT: NCAT with PERRLA, EOMI NECK: supple without JVD noted LUNGS: CTA bilaterally without wheeze/rales/rhonchi COR: RRR without m/r/g, normal S1S2, no S3 noted ABD: soft, NTND with NABS EXT: no c/c/e, normal DP/PT/RAD pulses NEURO: no focal deficits were noted Labs: pending ECG with ST elevation to inferior leads with reciprocal changes to anterior/ high lateral leads Assessment: 73 y/o male with history of CAD and PCI with STEMI to the inferior wall. Further past history of HTN, HLP, and DM, with bladder cancer and hematuria complicating lifelong use of ASA therapy. Ongoing chest pains with aforementioned ECG findings. 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 Dr. Isaias Gamino present and assessing the patient. Further recommendations after diagnostic testing has been completed.
[2018-07-01] MEDS ORDERED: MIDAZOLAM 2 MG/2 ML VIAL ONE (12:50)
[2018-07-01] MEDS ORDERED: LIDOCAINE 1% 300 MG/30 ML SDV ONE (12:50)
[2018-07-01] MEDS ORDERED: IOPAMIDOL (ISOVUE-370) 150 ML BTL IV ONE (12:50)
[2018-07-01] MEDS ORDERED: fentaNYL 100 MCG/2 ML INJ ONE (12:50)
[2018-07-01] MEDS ORDERED: BIVALIRUDIN 250 MG/5 ML VIAL IV ONE (12:51)
[2018-07-01] MEDS ORDERED: NITROGLYCERIN 1,500 MCG/15 ML VIAL MISC ONE (12:51)
[2018-07-01] MEDS ORDERED: EPINEPHrine 1 MG/10 ML SYR IVP ONE (12:51)
[2018-07-01] MEDS ORDERED: ATROPINE SULFATE 1 MG/10 ML SYR ONE ×2 (12:51→16:02)
[2018-07-01] MEDS ORDERED: METOPROLOL TARTRATE 5 MG/5 ML INJ ONE (13:13)
--- NOTE | 2018-07-01 13:44 | ASMTCMCOM ---
CM Note CM Note Notes: Reviewed chart, met with pt and family. Pt presented to the Emergency Department with chest pain. History includes several VT's with stents, diabetes, HTN, bladder cancer, dyslipidemia, gout, hypothyroid, and a knee replacement. Pt is and lives with his in [place]. 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 Pt to be admitted for a heart catheterization, as well as further observation and treatment. Support offered. Discharge needs remain unclear at this time. CM will continue to follow. Discharge Plan: To be determined Date Signed: 07/01/2018 01:43 PM Electronically Signed By:Hetal Ruelas RN
[2018-07-01] MEDS ORDERED: CLOPIDOGREL BISULFATE 75 MG TAB ONE (14:06)
[2018-07-01] MEDS ORDERED: ASPIRIN 325 MG TAB ONE (14:17)
[2018-07-01] MEDS ORDERED: LORazepam 2 MG/ML INJ IVP PRN (14:32)
[2018-07-01] MEDS: LISINOPRIL 40 MG TAB PO SCH ×2 (15:09→20:00)
[2018-07-01] MEDS: amLODIPine BESYLATE 5 MG TAB PO SCH (15:09)
[2018-07-01] MEDS ORDERED: D50W 25 GM/50 ML SYR IVP PRN (16:13)
[2018-07-01] MEDS ORDERED: amLODIPine BESYLATE 5 MG TAB PO ONE (16:18)
--- NOTE | 2018-07-01 16:37 | GCON ---
PULMONARY/CRITICAL CARE CONSULTATION DATE OF CONSULTATION: 07/01/2018 REFERRING PHYSICIAN: Alvarez Gamino MD REASON FOR REQUEST: Evaluation and management of diabetes and hypertension. HISTORY: The patient is a 73-year-old male with a history of several stents over the last several ye ars, including stenting due to acute coronary syndrome in the past. He has been unable to tolerate a ntiplatelet agents due to bladder cancer/hematuria. He was in his usual state of good health, when t his morning he was shoveling the driveway, and had the onset of some anterior chest pain spreading ac ross to his upper anterior chest. This was rated at 5/10 and persisted for quite a while after shove ling the driveway. He took a nitroglycerin, but that did not help, although they may have been old. The patient was brought into the hospital via private car. In the emergency department, he was foun d to have ST elevation in the inferior leads, and so was taken emergently to the catheterization lab, where Dr. Gamino placed 3 stents. The patient reports no chest pain or dyspnea currently. PAST MEDICAL HISTORY: 1. Coronary artery disease, status post multiple stents. 2. Hypertension. 3. Hyperlipidemia. 4. Diabetes (last hemoglobin A1c of 7.1%). 5. History of bladder cancer, status post BCG treatment, which resulted in gross hematuria. MEDICATIONS: At the time of admission include amlodipine/HCTZ, Lipitor, metformin, metoprolol, Synth roid, dutasteride, Mitigare, and Onglyza. ALLERGIES: None. SOCIAL HISTORY: The patient had smoked heavily until his 30s. He denies alcohol use. 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 FAMILY HISTORY: Unremarkable. REVIEW OF SYSTEMS: A 10-point review of systems adds nothing to the history of present illness. PHYSICAL EXAMINATION: GENERAL: The patient is awake and alert. He is in no acute distress. VITAL SIGNS: Blood pressure is 150/76 with a heart rate of 65. He is afebrile. Oxygen saturations are 10 0% on 2 L. HEENT: Normocephalic and atraumatic. No icterus. NECK: No adenopathy. Trachea is mid line. CHEST: Clear to auscultation. CARDIAC: Regular rate and rhythm without murmur. ABDOMEN: S oft, nontender. Bowel sounds are present. EXTREMITIES: No clubbing, cyanosis, or edema. NEURO: T he patient is awake and alert. He has no gross motor or sensory deficits. LABORATORY: Troponin is 0.03. An ECG demonstrates marked inferior ST elevation. ASSESSMENT: 1. ST-elevation acute myocardial infarction. This has been aborted with a cardiac catheterization p erformed by Dr. Gamino, with 3 stents placed. The patient currently is pain-free, and vital signs are stable. He has been started on Plavix and aspirin, and will need close monitoring for the possib ility of hematuria, which has occurred in the past. 2. Diabetes. The patient's hemoglobin A1c was mildly elevated recently. He is currently on oral hy poglycemics. The blood sugar has not yet been checked. 3. History of hematuria. He has not had hematuria recently. 4. History of hypertension. The patient currently has mild systolic hypertension. RECOMMENDATIONS: 1. Check a chem panel and CBC. Additionally, I will write for frequent glucose checks and a hemoglo bin A1c. 2. Follow blood pressure, with management per Cardiology. /[id number]/MODL
[2018-07-01 16:46] LABS: PLATELET COUNT 116 10^3/uL (150-400)
[2018-07-01] MEDS ORDERED: PROTOCOL POTASSIUM 1 DOSE MISC PRN (17:17)
[2018-07-01] MEDS ORDERED: POTASSIUM CL 10 MEQ TAB PO ONE ×2 (17:31→19:29)
[2018-07-01] MEDS: INSULIN REGULAR HUMAN 100 UNIT/ML UNIT SC SCH ×2 (17:49→21:01)
[2018-07-01 18:54] LABS: CREATINE KINASE 1036 IU/L (0-224)
[2018-07-01] MEDS ORDERED: ATORVASTATIN CALCIUM 20 MG TAB PO SCH (21:00)
[2018-07-01] MEDS ORDERED: ASCORBIC ACID 500 MG TAB PO SCH (21:00)
[2018-07-01 21:43] LABS: CREATINE KINASE 980 IU/L (0-224)
[2018-07-02 00:42] LABS: CREATINE KINASE 976 IU/L (0-224)
[2018-07-02] MEDS ORDERED: LEVOTHYROXINE 50 MCG TAB PO SCH (06:00)
[2018-07-02] MEDS ORDERED: POTASSIUM CL 10 MEQ TAB PO ONE (07:59)
[2018-07-02] MEDS: INSULIN REGULAR HUMAN 100 UNIT/ML UNIT SC SCH (08:59)
[2018-07-02] MEDS ORDERED: HYDROCHLOROTHIAZIDE 25 MG TAB PO SCH (09:00)
[2018-07-02] MEDS ORDERED: Saxagliptin Hcl [Onglyza] 5 MG PO SCH (09:00)
[2018-07-02] MEDS ORDERED: DUTASTERIDE 0.5 MG CAP PO SCH (09:00)
[2018-07-02] MEDS ORDERED: CLOPIDOGREL BISULFATE 75 MG TAB PO SCH (09:00)
[2018-07-02] MEDS ORDERED: ASPIRIN 81 MG CHEWABLE TAB PO SCH (09:00)
[2018-07-02] MEDS ORDERED: COLCHICINE 0.6 MG CAP/TAB PO SCH (09:00)
[2018-07-02] MEDS ORDERED: METOPROLOL SUCCINATE XR 100 MG TAB PO SCH (09:00)
[2018-07-02] MEDS: amLODIPine BESYLATE 5 MG TAB PO SCH (09:02)
[2018-07-02 09:12] VITALS: BP 125/61
[2018-07-02] MEDS: LISINOPRIL 40 MG TAB PO SCH (09:12)
--- NOTE | 2018-07-02 12:23 | PDMN ---
Medical Necessity Medical necessity: [place] [id number] ME: 73 yo presents w/ acute ME, STEMI, taken to laborer stores, stents x3, IP status.
--- NOTE | 2018-07-02 14:45 | CPEKG ---
Test Reason : OPEN Blood Pressure : / mmHG Vent. Rate : 056 BPM Atrial Rate : 056 BPM P-R Int : 234 ms QRS Dur : 118 ms QT Int : 467 ms P-R-T Axes : 054 060 099 degrees QTc Int : 451 ms Sinus rhythm Prolonged FL interval Nonspecific intraventricular conduction delay Inferior infarct, acute (RCA) ST elevation, consider anterior injury Lateral leads are also involved Probable RV involvement, suggest recording right precordial leads Confirmed by Isak Cifuentes ([id number]) on 07/02/2018 2:44:45 PM Referred By: Confirmed By:Isak Cifuentes
--- NOTE | 2018-07-02 15:47 | CPEKG ---
Test Reason : OPEN Blood Pressure : / mmHG Vent. Rate : 063 BPM Atrial Rate : 060 BPM P-R Int : 223 ms QRS Dur : 105 ms QT Int : 443 ms P-R-T Axes : 058 -32 097 degrees QTc Int : 454 ms Sinus arrhythmia Ventricular premature complex Prolonged ME interval Probable left atrial enlargement Inferior infarct, recent Lateral leads are also involved In comparison to prior ECG, ST elevation to the inferior/inferolateral leads has resolved Confirmed by Karlos Johnson ([id number]) on 07/02/2018 3:47:00 PM Referred By: Confirmed By:Karlos Johnson
--- NOTE | 2018-07-02 15:51 | CPEKG ---
Test Reason : OPEN Blood Pressure : / mmHG Vent. Rate : 053 BPM Atrial Rate : 053 BPM P-R Int : 201 ms QRS Dur : 107 ms QT Int : 504 ms P-R-T Axes : 069 -18 -61 degrees QTc Int : 474 ms Sinus rhythm Inferior infarct, old Lateral leads are also involved Confirmed by Karlos Johnson ([id number]) on 07/02/2018 3:51:25 PM Referred By: Confirmed By:Karlos Johnson
--- NOTE | 2018-07-03 08:46 | PDDXCAT ---
Diagnostic Cath Note - . Date: 07/03/18 [employer]: Stevenson Indication: other (STEMI) - Procedure Access: right groin Procedure: left heart catheterization, coronary angiography, left ventriculogram - Materials Left Heart Cath size: 6F Left Heart Cath materials: standard multipack (JL4, JR4, pigtail) - Findings-Left Heart Catheterization LM: No focal stenosis LAD: Lad stent widely patent. Distal 75-80% stenosis. LCX: OM occluded in site of prior stenting. [id number] collaterals. No new focal stenosis. Proximal 50% stenosis. RCA: 100% occluded proximally EDP: Postprocedure: 25 mm of mercury LVEF: 60% with mild inferior hypokinesis Wall motion: Mild inferior hypokinesis postprocedure Complications: None Estimated blood loss: <50ml Closure method: manual pressure Assessment: ST segment elevation inferior wall myocardial infarction with thrombotic occlusion of the proximal RCA Plan: Emergency PCI Intervention: Patient was anticoagulated with Angiomax. He had been trip pretreated with Plavix in the emergency department. Case was begun with a standard 6 [place] JR4 guiding catheter. The right coronary was selectively intubated. For details of the procedure please see the attached computer report. After diagnostic angiogram was performed. A 0.014 luge wire was negotiated past the thrombotic occlusion of the proximal RCA. Using a 2 mm balloon single inflation was performed reestablishing antegrade flow. Proximal thrombus was identified. Diffuse InStent restenosis was identified. It was elected to proceed with repeat stenting. It 2.75 x 20 mm synergy stent was placed on the wire. Attempts at negotiating the right coronary artery were made but failed. The stent was withdrawn. A 0.014 mailman wire was placed distally. Pre dilatation was performed with a 3 mm balloon. With the nixon wire and placed the stent was able to be placed distally. The nixon wire was withdrawn. The stent was deployed. The stent balloon was used to pre dilate the proximal segment. A 3.0 x 20 mm synergy stent was then placed on the wire. Attempts at crossing into the mid segment of the RCA were made but failed. The nixon wire was replaced. A 3 mm balloon was used to pre dilate the proximal segment. The 3 mm stent then crossed using the nixon wire technique. It was deployed using a single inflation. A 3.5 mm x 15 mm synergy stent was placed proximally. This also required a nixon wire to position the stent. After withdrawing the nixon wire the stent was deployed. The 3.5 mm balloon was used to post dilate the stented segments. Repeat angiogram showed SATINDER grade 3 flow. Following completion of the emergency PCI. The completion of the diagnostic angiogram was performed. Left ventricular angiography was performed. A peripheral angiogram showed the arteriotomy to be too low to be closed. The sheath was secured new is taken to the ICU for continued care. Patient was hypertensive during the examination. He was treated with metoprolol IV. Therapeutic ACT was confirmed during the procedure. He became pain-free after initial inflation. Conclusions: ST segment elevation myocardial infarction with thrombotic occlusion of the proximal RCA. Status post successful PCI and stenting. Patient be continued on dual antiplatelet therapy uninterrupted. Continued aggressive secondary prevention with statin therapy, Roque inhibitor, beta- david. Clinical follow-up in the intensive care unit. Results discussed with the patient's family. Patient Problems: Problems Problem Status Onset Arthritis of knee Acute Arthritis of knee, left Acute Blood clot in bladder Acute Chest pain Acute STEMI (ST elevation myocardial infarction) Acute Urinary retention Acute
--- NOTE | 2018-07-03 08:49 | PDDCSUM ---
Discharge Summary Discharge Summary: Admission date: 07/01/2018 Discharge date: 07/02/2018 Admission diagnosis: ST segment elevation myocardial infarction Discharge diagnosis: Same Procedure: PCI and stenting of the proximal RCA with a diagnostic coronary angiogram. Consultation: Critical care Dr. Roderick youssef Follow-up [id number] 07/03/2018. Referral cardiac rehabilitation. Hospital course: 73-year-old male well known to me admitted through the emergency department with ST segment elevation myocardial infarction. He has taken to the cardiac catheterization lab and found to have occluded proximal RCA. He underwent successful PCI and stenting. Procedure was uncomplicated. He had no hemodynamic instability. He was observed overnight without ventricular ectopy. He had no evidence of heart failure. He had no recurrent angina. He was up ambulating after the sheaths were removed manually. On the day of the discharge blood pressure was 119/70. Heart rate was 60. Chest was clear. Cardiac exam showed a regular rate and rhythm. Is puncture site was healing well without significant ecchymosis erythema or edema. Problem list: 1. Coronary artery disease status post myocardial infarction. He had no residual LV dysfunction with ejection fraction of 60%. He is on appropriate medical therapy with aggressive secondary prevention goals in mind. He will be followed up closely. Considerations for PC SK 9 inhibitor verses aggressive high-dose statin therapy. Will hold his metformin for 3 days.. Patient is scheduled to have bladder irrigation with BCG. Will discuss this with his urologist. Questions were answered with him in his family. He is discharged home in stable condition.
== END 2018-07-02 09:08 | disposition home or self-care (01) | DRG 247 ==
LOC: F2N 14:34
PROVIDERS: ADMIT Internal Medicine Interventional Cardiology; ATTEND Internal Medicine Interventional Cardiology
PROC: B2151ZZ Fluoroscopy of Left Heart using Low Osmolar Contrast (ICD-10-PCS; principal; 2018-07-01)
PROC: B2111ZZ Fluoroscopy of Multiple Coronary Arteries using Low Osmolar Contrast (ICD-10-PCS; principal; 2018-07-01)
PROC: 4A023N7 Measurement of Cardiac Sampling and Pressure, Left Heart, Percutaneous Approach (ICD-10-PCS; principal; 2018-07-01)
PROC: 027036Z Dilation of Coronary Artery, One Artery with Three Drug-eluting Intraluminal Devices, Percutaneous Approach (ICD-10-PCS; principal; 2018-07-01)
DX: I21.11 ST elevation (STEMI) myocardial infarction involving right coronary artery (principal); I10 Essential (primary) hypertension; E78.5 Hyperlipidemia, unspecified; E11.9 Type 2 diabetes mellitus without complications; C67.9 Malignant neoplasm of bladder, unspecified; E03.9 Hypothyroidism, unspecified; Z95.5 Presence of coronary angioplasty implant and graft
CPT/HCPCS: 84484-ER; 96374; C1725; C1769; C1874; C1887; C9606; J0461; J0583; J1644; J1815; J2250; J2270; J3010; Q9967